=== PATIENT | female | born 1995 | race Caucasian/White ===

== ENCOUNTER 2020-12-21 14:27 | Emergency (ER) | payer BC, SELFPAY ==
--- NOTE | ~2020-12-21 | XR_ITS ---
EXAMINATION: XR foot RT min 3V EXAM DATE: 12/21/2020 14:43 INDICATION: No known recent injury provided at this time. Pain of the right foot, heel. TECHNIQUE: Right foot dorsoplantar, lateral and oblique projections obtained and reviewed. There is no prior study for comparison. FINDINGS: Right metatarsal bones unremarkable. No periosteal reaction or band of sclerosis to sugges t subacute stress fracture. There are no acute fractures or dislocations identified. There is no dunn bcutaneous gas. The soft tissue is unremarkable. There are no radiopaque foreign bodies. IMPRESSION: No acute osseous findings. Reviewed, dictated and finalized at location B. IMPRESSION: No acute osseous findings.
[2020-12-21 14:30] VITALS: BP 125/78; PULSE 87; RESP 18; TEMP 36.9; O2SAT 100
[2020-12-21 16:02] VITALS: BP 130/77; PULSE 94; RESP 18; TEMP 36.8; O2SAT 100
--- NOTE | 2020-12-21 16:27 | ED.LOWEXIN ---
HPI - Extremity Injury (Lower) General Chief Complaint: Extremity Injury, Lower <Ron Leonard PA-C - Last Filed: 12/21/20 16:32> Stated Complaint: R Foot Pain <Ron Leonard PA-C - Last Filed: 12/21/20 16:32> Time Seen by Provider: 12/21/20 15:48 <Ron Leonard PA-C - Last Filed: 12/21/20 16:32> Source: patient <ROBIN Casas Last Filed: 12/21/20 16:32> Mode of arrival: ambulatory <ROBIN Casas Last Filed: 12/21/20 16:32> Limitations: no limitations <ROBIN Casas Last Filed: 12/21/20 16:32> History of Present Illness HPI Narrative: Patient presents with chief complaint of pain to the plantar aspect of her right foot under her right fifth metatarsal. Patient denies known injury. Patient reports the area is tender when walked on her toes. Patient has taken some Excedrin for symptoms. Patient denies any other symptoms. <ROBIN Casas Last Filed: 12/21/20 16:32> Related Data Home Medications: Home Medications Medication Instructions Recorded Confirmed albuterol sulfate INHALATION 12/21/20 mometasone-formoterol [Dulera] INHALATION 12/21/20 <Ron Leonard PA-C - Last Filed: 12/21/20 16:32> Allergies/Adverse Reactions: Allergies Allergy/AdvReac Type Severity Reaction Status Date / Time No Known Allergies Allergy Unverified 12/21/20 16:04 <Ron Leonard PA-C - Last Filed: 12/21/20 16:32> Review of Systems Review of Systems: CONSTITUTIONAL: Denies fever, chills, or sweats. EYES: Denies visual changes, redness, or discharge. ENT: Denies rhinorrhea, congestion, sore throat, or otalgia. CARDIOVASCULAR: Denies chest pain, palpitations, or edema. RESPIRATORY: Denies cough or dyspnea. GASTROINTESTINAL: Denies abdominal pain, nausea, vomiting, or diarrhea. GENITOURINARY: Denies dysuria or hematuria. SKIN: Denies rash or itching. MUSCULOSKELETAL: Reports right foot pain denies back pain, joint pain, or myalgia. NEUROLOGIC: Denies headache, numbness, dizziness, or weakness. PSYCHIATRIC: Denies anxiety or depression. <Ron Leonard PA-C - Last Filed: 12/21/20 16:32> Exam Narrative: GENERAL: Well-appearing, well-nourished, and in no acute distress. HEAD: Normocephalic, atraumatic. EYES: PERRLA and EOMI. CHEST: Clear to auscultation. No respiratory distress. No wheezes rales or rhonchi HEART: Regular rate and rhythm. EXTREMITIES: Tender with palpating the flexor tendon of the fifth metatarsal of the right foot. No outward signs of injury, erythema or swelling. Normal range of motion. No edema. SKIN: Warm, dry, no rash. NEURO: No focal deficits. Alert and oriented x3. PSYCH: Normal mood and affect. <Ron Leonard PA-C - Last Filed: 12/21/20 16:32> Course Vital Signs Vital signs: Vital Signs Temperature 98.5 F 12/21/20 14:30 Pulse Rate 87 12/21/20 14:30 Respiratory Rate 18 12/21/20 14:30 Blood Pressure 125/78 12/21/20 14:30 Pulse Oximetry 100 12/21/20 14:30 Temperature 98.2 F 12/21/20 16:02 Pulse Rate 94 12/21/20 16:02 Respiratory Rate 18 12/21/20 16:02 Blood Pressure 130/77 12/21/20 16:02 Pulse Oximetry 100 12/21/20 16:02 <Ron Leonard PA-C - Last Filed: 12/21/20 16:32> Vital Signs Temperature 98.5 F 12/21/20 14:30 Pulse Rate 87 12/21/20 14:30 Respiratory Rate 18 12/21/20 14:30 Blood Pressure 125/78 12/21/20 14:30 Pulse Oximetry 100 12/21/20 14:30 Temperature 98.2 F 12/21/20 16:02 Pulse Rate 94 12/21/20 16:02 Respiratory Rate 18 12/21/20 16:02 Blood Pressure 130/77 12/21/20 16:02 Pulse Oximetry 100 12/21/20 16:02 <Cheri Portillo MD - Last Filed: 12/21/20 20:57> MDM - Extremity Injury (Lower) MDM Narrative Medical decision making narrative: Patient has symptoms of tendinitis. Discussed NSAIDs, estrogen therapy, follow-up primary care for further investigation and management if symptoms persist. Juan Francisco
== END 2020-12-21 17:06 | disposition home or self-care (01) ==
PROVIDERS: Emergency Provider Emergency Medicine; PCP Internal Medicine
DX: M77.8 Other enthesopathies, not elsewhere classified (principal)
CPT/HCPCS: 73630; 99283

== ENCOUNTER 2021-12-02 11:04 | Emergency (ER) | payer BC, SELFPAY ==
[2021-12-02 11:05] VITALS: BP 136/81; PULSE 95; RESP 18; TEMP 36.6; O2SAT 100
[2021-12-02 11:25] LABS: Basophils Percent Auto 0.2 % (0.2-1.2); Eosinophils Absolute Auto 0.2 K/mm3 (0-0.3); Hematocrit 48.2 % (37.0-47.0); Hemoglobin 15.6 g/dL (12.0-15.0); Immature Granulocyte Absolute 0.02 K/mm3 (0.00-0.031); Immature Granulocyte Percent A 0.2 % (0-0.5); Lymphocytes Absolute Auto 2.83 K/mm3 (0.9-3.2); Lymphocytes Percent Auto 30.4 % (18.3-44.2); Mean Corpuscular HGB Conc 32.4 g/dl (32-36); Mean Corpuscular Hemoglobin 28.2 pg (26-34); Mean Corpuscular Volume 87.2 fl (80-100); Mean Platelet Volume 10.1 fl (7.4-10.4); Monocytes Absolute Auto 0.6 K/mm3 (0.1-0.6); Monocytes Percent Auto 6.3 % (2.6-8.5); Neutrophils Absolute Auto 5.7 K/mm3 (1.3-6.7); Neutrophils Percent Auto 60.9 % (45.5-73.1); Platelet Count Result 351 k/mm3 (150-375); Red Blood Count 5.53 M/mm3 (4.2-5.4); Red Cell Distribution Width 11.9 % (11.5-14.5); White Blood Count 9.3 K/mm3 (4.5-10.0)
[2021-12-02 11:43] LABS: Alanine Aminotransferase 17 U/L (6-35); Albumin Level 5.2 g/dL (3.5-5.1); Alkaline Phosphatase 89 U/L (38-126); Anion Gap 13 mmol/L (8-16); Appearance Urine Clear (Clear); Aspartate Amino Transferase 26 U/L (14-36); Bilirubin Urine 1+ (Negative); Bilirubin,Total 1.5 mg/dL (0.2-1.3); Blood Urea Nitrogen 18 mg/dL (7-17); Blood Urine Negative (Negative); Carbon Dioxide 29 mmol/L (22-30); Chloride 100 mmol/L (98-107); Color Urine Yellow (Yellow); Estimated CRCL calculation 116 ml/min; Estimated Glomerular Filt Rate > 60; Glucose 104 mg/dL (65-110); Glucose Urine UA Negative (Negative); Ketones Urine Negative (Negative); Leukocyte Esterase Ur Negative LEU/UL (Negative); Lipase 166 U/L (23-300); Nitrate Urine Negative (Negative); Potassium 4.2 mmol/L (3.4-5.0); Protein Urine Negative (Negative); Sodium 142 mmol/L (137-145); Specific Grav Ur >= 1.030 (1.001-1.035); Urobilinogen Urine 0.2 mg/dL (<2.0); pH Urine 5.5 (5.0-9.0)
[2021-12-02 11:48] LABS: Mucus Urine Rare /lpf; RBC Urine 0-2 /hpf (0-2); Squamous Epithelial Cell Urine Few /hpf (Few)
[2021-12-02 11:49] LABS: Add Urine Microscopic? YES
--- NOTE | 2021-12-02 11:49 | ED.BACK ---
HPI - Back Pain/Injury General Chief Complaint: Back Pain/Injury Stated Complaint: back pain Time Seen by Provider: 12/02/21 11:38 History of Present Illness HPI Narrative: Patient is a 26 year old female here for evaluation of pain in her right side x 6 days. Patient states the pain is intermittent in nature, worse with rotation of her torso, and is worse when she is seated. She notes the pain feels like a cramp and will occasionally radiate into her low back. She was seen at [facility] emergency department upon symptom onset, she had a CT scan that was reportedly normal. They treated her for suspected pyelonephritis with antibiotics, but patient states that the antibiotics have not improved her symptoms. She has not attempted any pain medicine. Patient does note that she worked out for the first time in a while prior to symptom onset, with lots of abdominal crunches. She denies any nausea, vomiting, fevers, chills, dysuria, urgency, frequency. Related Data Home Medications Medication Instructions Recorded Confirmed albuterol sulfate 90 mcg/actuation inhalation 12/21/20 aerosol inhaler mometasone-formoterol HFA 200 inhalation 12/21/20 mcg-5 mcg/actuation aerosol inhaler (Dulera) Allergies Allergy/AdvReac Type Severity Reaction Status Date / Time amoxicillin Allergy Rash Verified 12/02/21 11:23 Review of Systems Review of Systems: Gen: Denies fevers or chills Eyes: Denies eye pain or visual change ENT: Denies congestion Respiratory: Denies shortness of breath or cough CV: Denies chest pain or palpitations GI: Denies abdominal pain nausea, emesis or diarrhea denies burning, urgency, frequency or hematuria Musculoskeletal: Denies back pain or muscle pain Neuro: Denies numbness, tingling, weakness or focal weakness Skin: Denies rash Except as documented, all other systems reviewed and negative Course Vital Signs Vital signs: Vital Signs Temperature 98 F 12/02/21 11:05 Pulse Rate 95 12/02/21 11:05 Respiratory Rate 18 12/02/21 11:05 Blood Pressure 136/81 12/02/21 11:05 Pulse Oximetry 100 12/02/21 11:05 Oxygen Delivery Room Air 12/02/21 11:05 Temperature 98 F 12/02/21 11:05 Pulse Rate 79 12/02/21 13:36 Respiratory Rate 18 12/02/21 13:36 Blood Pressure 110/74 12/02/21 13:36 Pulse Oximetry 99 12/02/21 13:36 Oxygen Delivery Room Air 12/02/21 11:05 MDM - Back Pain/Injury MDM Narrative Medical decision making narrative: 26-year-old female here for evaluation of pain in her right side over the past several days that is positional in nature, onset after recent exertion. Here she is nontoxic-appearing with normal vital signs and she has no abdominal tenderness to palpation whatsoever, in addition to no CVA tenderness. Work-up unremarkable, no leukocytosis, normal lipase. UA normal. She tells me she had a right upper quadrant ultrasound and a CT scan at outside hospital upon symptom onset that were both normal; do not feel repeat imaging is indicated today. Patient tells me that she does have a history of chronic gallbladder issues which likely explains the slight elevation in her bilirubin to 1.5, and she has follow-up with a surgeon later this month. Favor musculoskeletal sprain given location and quality of pain; improved after Tylenol, ibuprofen and lidocaine patch in the ED. Did offer patient pelvic ultrasound but she declined, feel this is reasonable as her symptoms are not consistent with a ovarian torsion. He has follow-up with an OB doctor at the end of this week and also with her primary care this coming week, encouraged her to keep these appointments. She was given reasons to return to the ED and she voiced understanding. Lab Data Result diagrams: 12/02/21 11:18 12/02/21 11:18 Labs: Lab Results 12/02/21 12/02/21 12/02/21 Range/Units 11:18 11:18 11:18 WBC 9.3 (4.5-10.0) K/mm3 RBC 5.53 H (4.2-5.4) M/mm3 Hg
[2021-12-02] MEDS: LIDOCAINE 5% PATCH 1 PATCH TRANSDERM (12:25)
[2021-12-02] MEDS: ACETAMINOPHEN 325 MG TABLET 650 MG PO (12:27)
[2021-12-02] MEDS: IBUPROFEN 600 MG TABLET PO (12:27)
[2021-12-02 12:29] VITALS: BP 120/70; PULSE 102; RESP 18; O2SAT 100
[2021-12-02 13:36] VITALS: BP 110/74; PULSE 79; RESP 18; O2SAT 99
== END 2021-12-02 13:38 | disposition home or self-care (01) ==
PROVIDERS: Emergency Provider Emergency Medicine; PCP Internal Medicine
DX: S39.012A Strain of muscle, fascia and tendon of lower back, initial encounter (principal); X58.XXXA Exposure to other specified factors, initial encounter
CPT/HCPCS: 36415; 80053; 81001; 81025; 83690; 85025; 87086; 87088; 99283; A9270

== ENCOUNTER 2021-12-08 21:03 | Emergency (ER) | payer BC, SELFPAY ==
--- NOTE | ~2021-12-08 | CT_ITS ---
EXAMINATION: CT abdomen pelvis wo con DATE: 12/09/2021 00:45 INDICATION: Right flank pain. Right upper abdominal pain. TECHNIQUE: Computed tomography (CT) of the abdomen and pelvis was performed without intravenous contr ast. Automated exposure control and iterative reconstruction technique were employed. The dose-length product was 1416.29 mGy-cm. COMPARISON: None. FINDINGS: The visualized portions of the lung bases demonstrate minimal atelectasis. No pleural effus ion. The heart size is normal. No pericardial effusion. The liver and spleen are normal. There are ga llstones in the gallbladder, which is normal in size. The pancreas, adrenal glands, and kidneys are n ormal. There is no urolithiasis. There are no dilated loops of bowel. The appendix is normal. There a re no pathologically enlarged lymph nodes. There is no free intraperitoneal fluid. There is mild thor acic spondylosis. There is mild chronic anterior wedging of multiple lower thoracic vertebral bodies. IMPRESSION: 1. No urolithiasis. Reviewed, dictated and finalized at location A. IMPRESSION: 1. No urolithiasis.
[2021-12-08 21:04] VITALS: BP 144/89; PULSE 73; RESP 16; TEMP 36.1; O2SAT 100
[2021-12-08 22:27] LABS: Basophils Absolute Auto 0.1 K/mm3 (0.0-0.1); Basophils Percent Auto 0.5 % (0.2-1.2); Eosinophils Absolute Auto 0.2 K/mm3 (0-0.3); Eosinophils Percent Auto 2.1 % (0-4.4); Hematocrit 43.7 % (37.0-47.0); Hemoglobin 14.1 g/dL (12.0-15.0); Immature Granulocyte Absolute 0.03 K/mm3 (0.00-0.031); Immature Granulocyte Percent A 0.3 % (0-0.5); Lymphocytes Absolute Auto 3.74 K/mm3 (0.9-3.2); Lymphocytes Percent Auto 37.7 % (18.3-44.2); Mean Corpuscular HGB Conc 32.3 g/dl (32-36); Mean Corpuscular Hemoglobin 28.5 pg (26-34); Mean Corpuscular Volume 88.5 fl (80-100); Mean Platelet Volume 10.4 fl (7.4-10.4); Monocytes Absolute Auto 0.5 K/mm3 (0.1-0.6); Monocytes Percent Auto 5.3 % (2.6-8.5); Neutrophils Absolute Auto 5.4 K/mm3 (1.3-6.7); Neutrophils Percent Auto 54.1 % (45.5-73.1); Platelet Count Result 315 k/mm3 (150-375); Red Blood Count 4.94 M/mm3 (4.2-5.4); White Blood Count 9.9 K/mm3 (4.5-10.0)
[2021-12-09 00:03] VITALS: BP 125/99; PULSE 76; RESP 16; TEMP 36.8; O2SAT 100
[2021-12-09 00:12] LABS: Appearance Urine Clear (Clear); Bilirubin Urine Negative (Negative); Blood Urine 3+ (Negative); Color Urine Yellow (Yellow); Glucose Urine UA Negative (Negative); Ketones Urine Trace mg/dL (Negative); Leukocyte Esterase Ur 1+ LEU/UL (Negative); Nitrate Urine Negative (Negative); Protein Urine Negative (Negative); Specific Grav Ur >= 1.030 (1.001-1.035); Urobilinogen Urine 0.2 mg/dL (<2.0)
[2021-12-09 00:15] LABS: Alanine Aminotransferase 16 U/L (6-35); Albumin Level 4.4 g/dL (3.5-5.1); Alkaline Phosphatase 79 U/L (38-126); Anion Gap 11 mmol/L (8-16); Aspartate Amino Transferase 22 U/L (14-36); Bilirubin,Total 1.1 mg/dL (0.2-1.3); Blood Urea Nitrogen 16 mg/dL (7-17); Calcium 9.6 mg/dL (8.4-10.2); Carbon Dioxide 26 mmol/L (22-30); Chloride 101 mmol/L (98-107); Estimated CRCL calculation 129 ml/min; Estimated Glomerular Filt Rate > 60; Glucose 101 mg/dL (65-110); Lipase 170 U/L (23-300); Potassium 3.6 mmol/L (3.4-5.0); Sodium 138 mmol/L (137-145)
[2021-12-09 00:16] LABS: Bacteria Urine Trace /hpf; Mucus Urine Heavy /lpf; RBC Urine 21-50 /hpf (0-2); Squamous Epithelial Cell Urine Many /hpf (Few); Transitional Epi Cells Urine Rare /hpf (None Seen); WBC Urine 31-50 /hpf
[2021-12-09 00:23] LABS: Add Urine Microscopic? YES
--- NOTE | 2021-12-09 00:25 | ED.ABDPAIN ---
HPI - Abdominal Pain General Chief Complaint: Abdominal Pain Stated Complaint: right sided abd pain Time Seen by Provider: 12/08/21 23:34 Source: patient Mode of arrival: ambulatory Limitations: no limitations History of Present Illness HPI narrative: This is a 26 year old female with history of gallbladder disease who presents for evaluation of right side abdominal pain. Patent states she developed abdominal pain 3 weeks ago. Her pain has been located in right upper abdomen, epigastric, right flank and upper back intermittently. She has been to ER three times for this pain already , and she was recently in [place] ER 1 week ago. She states she has returned because she is having constant right flank pain for 5 day. She has been taking naproxen and norco for her pain without relief. She thinks her pain is worse with sitting up. She denies associated fever, chills, nausea, vomiting or urinary complaints. She states she was told it was her gallbladder but she states this does not feel like her gallbladder pain . She has been diagnosed with back strain as well. She rates pain as 3/10 at rest and 6/10 with movement. Related Data Home Medications Medication Instructions Recorded Confirmed albuterol sulfate 90 mcg/actuation inhalation 12/21/20 aerosol inhaler mometasone-formoterol HFA 200 inhalation 12/21/20 mcg-5 mcg/actuation aerosol inhaler (Dulera) Allergies Allergy/AdvReac Type Severity Reaction Status Date / Time amoxicillin Allergy Rash Verified 12/02/21 11:23 Review of Systems Review of Systems: All systems reviewed & are unremarkable except as noted in HPI and below Constitutional: Constitutional: Denies chills, Denies fatigue and Denies fever(s) Cardiovascular: Cardiovascular: Denies chest pain Respiratory: Respiratory: Denies chest congestion Gastrointestinal: Gastrointestinal: Reports abdominal pain, Denies nausea and Denies vomiting Genitourinary: Genitourinary: Denies hematuria, Denies nocturia, Denies dysuria and Reports flank pain Musculoskeletal: Musculoskeletal: Reports back pain PMF Past Medical History Medical History (Updated 12/09/21 @ 03:34 by Cheri Portillo MD) No active medical problems Surgical History Surgical History (Updated 12/09/21 @ 00:30 by Cheri Portillo MD) No pertinent past surgical history Social History Social History (Updated 12/09/21 @ 00:31 by Cheri Portillo MD) Smoking status: Never smoker Exam Const: General: no acute distress and alert Nutritional Appearance: well nourished Orientation/consciousness: patient oriented x3 HENMT: Head: normal to inspection Eyes: EOM: EOMs intact bilaterally Resp: Effort & Inspection: normal respiratory effort Auscultation: clear to auscultation bilaterally Cardio: Rate: regular rate Rhythm: regular rhythm Heart sounds: no murmurs GI: GI Palp: Yes Soft to palpation, Yes Tenderness to palpation present (GI) (RUQ), No Guarding due to palpation present (GI) and No Rigid due to palpation Auscultation: normal bowel sounds : General: Yes no CVA tenderness Back/Spine/Pelvis: Back: no CVA tenderness Skin: General skin exam: normal color Rashes: no rashes Wounds: no wounds Neuro: General: patient oriented x3, moves all extremities and CN's II-XI intact bilaterally Extrem: General: normal to inspection Psych: Mental Status: mental status grossly normal Affect: normal affect Attitude: cooperative Course Reevaluation(s) Reevaluation #1: Patient presented with pain that has been present for weeks. CMP, CBC are unremarkable. Patient is currently on her cycle. Urine appears to be contaminant. PAtient is not symptomatic so will not treat as antibiotic. CT does not show any thing acute . I have discussed this with patient and discharge. Date: 12/09/21 Time: 03:30 Vital Signs Vital signs: Vital Signs Temperature 97 F L 12/08/21 21:04 Pulse Rate
[2021-12-09 00:36] LABS: Pregnancy On Board Control Positive; Urine Pregnancy Test Negative
[2021-12-09] MEDS: LACTATED RINGERS 1,000 ML 999 ML IV CONT (00:44)
[2021-12-09 01:00] VITALS: BP 125/88; PULSE 80; RESP 16; TEMP 36.3; O2SAT 100
[2021-12-09 02:04] VITALS: BP 123/74; PULSE 78; RESP 16; TEMP 36.6; O2SAT 100
[2021-12-09 02:54] VITALS: BP 103/52; PULSE 69; RESP 18; TEMP 36.3; O2SAT 100
--- NOTE | 2021-12-09 03:04 | PC.NURSE ---
Assumed care of pt at this time.
[2021-12-09 04:09] VITALS: BP 122/81; PULSE 89; RESP 20; TEMP 36.7; O2SAT 100
== END 2021-12-09 04:10 | disposition home or self-care (01) ==
PROVIDERS: Nurse Practitioner Family; Emergency Provider General Practice; PCP Internal Medicine
DX: R10.11 Right upper quadrant pain (principal); K80.20 Calculus of gallbladder without cholecystitis without obstruction; M47.814 Spondylosis without myelopathy or radiculopathy, thoracic region
CPT/HCPCS: 36415; 74176; 80053; 81001; 81025; 83690; 85025; 87077; 87086; 87088; 96360; 99284; J7120

== ENCOUNTER 2023-11-06 23:32 | Emergency (ER) | payer OTHER, SELFPAY ==
[2023-11-06 23:37] VITALS: BP 120/72; PULSE 110; RESP 16; TEMP 36.4; O2SAT 100
--- NOTE | 2023-11-06 23:48 | ED.BACK ---
HPI - Back Pain/Injury General Chief Complaint: Back Pain/Injury Stated Complaint: lower back pain Time Seen by Provider: 11/06/23 23:43 History of Present Illness HPI Narrative: 28-year-old female presents to emergency department for lower back pain for 1 week. Patient states 1 week ago she woke up with low back pain and it has progressively gotten worse. States she has been picking up her dog a lot which is been making her back pain worse. She states it is throughout her lower back and is worse with movement. Denies fever, nausea or vomiting, abdominal pain, dysuria or hematuria, saddle anesthesia, radicular symptoms, urinary incontinence or retention, bowel incontinence, IV drug use, use of immunosuppressants, surgeries or procedures to her back, injury or trauma. She has tried Tylenol, ibuprofen, icy Hot without relief. Related Data Home Medications Medication Instructions Recorded Confirmed albuterol sulfate 90 mcg/actuation inhalation 12/21/20 aerosol inhaler mometasone-formoterol HFA 200 inhalation 12/21/20 mcg-5 mcg/actuation aerosol inhaler (Dulera) Allergies Allergy/AdvReac Type Severity Reaction Status Date / Time amoxicillin Allergy Rash Verified 11/06/23 23:41 Review of Systems Review of Systems: All systems reviewed & are unremarkable except as noted in HPI and below PMFSH Past Medical History Medical History No active medical problems Surgical History Surgical History No pertinent past surgical history Social History Social History Smoking status: Never smoker Exam Narrative: GENERAL: Well-appearing, well-nourished, and in no acute distress. HEAD: Normocephalic, atraumatic. EYES: PERRLA and EOMI. ENT: Nares clear, no rhinorrhea or epistaxis. Mucous membranes moist. NECK: Supple. BACK: Diffuse pain to her lumbar region including paraspinous muscles and midline spinous tenderness. No step-offs or deformities. No overlying skin changes. Negative straight leg raise bilaterally CHEST: Clear to auscultation. No respiratory distress. HEART: Regular rate and rhythm. No murmur heard. Normal peripheral pulses. ABDOMEN: Soft, nontender, nondistended, normal active bowel sounds. EXTREMITIES: Normal range of motion. No edema. BLE strength 5/5. Sensation intact. No saddle anesthesia. SKIN: Warm, dry, no rash. NEURO: No focal deficits. Alert and oriented x3 Course Vital Signs Vital signs: Vital Signs Temperature 97.6 F 11/06/23 23:37 Pulse Rate 110 H 11/06/23 23:37 Respiratory Rate 16 11/06/23 23:37 Blood Pressure 120/72 11/06/23 23:37 Pulse Oximetry 100 11/06/23 23:37 Oxygen Delivery Room Air 11/06/23 23:37 Temperature 97.6 F 11/06/23 23:37 Pulse Rate 110 H 11/06/23 23:37 Respiratory Rate 16 11/06/23 23:37 Blood Pressure 120/72 11/06/23 23:37 Pulse Oximetry 100 11/06/23 23:37 Oxygen Delivery Room Air 11/06/23 23:37 MDM - Back Pain/Injury MDM Narrative Medical decision making narrative: 28-year-old female presents to the emergency department for atraumatic low back pain for 1 week. Vital significant for tachycardia 110, otherwise unremarkable. She is afebrile and nontoxic appearing. Exam significant for diffuse tenderness to her lower back. She is neurovascularly intact. No signs of cauda equina. No red flag back pain signs. Will obtain urine and UA and provide symptomatic control and re-evaluate. UA with 51-100 wbc's and greater than 100 rbc's. Patient is currently on her menstrual cycle. She denies signs or symptoms of UTI. She has no flank pain. No history of kidney stones. Very low suspicion for ureterolithiasis as the cause of her pain. negative. Labs discussed. She was given IM Toradol, Tylenol, lidocaine patch and Flex
[2023-11-07] MEDS: ACETAMINOPHEN 500 MG TABLET 1000 MG PO (00:05)
[2023-11-07] MEDS: CYCLOBENZAPRINE HCL 10 MG TABLET PO (00:05)
[2023-11-07] MEDS: LIDOCAINE 5% PATCH 1 PATCH TRANSDERM (00:05)
[2023-11-07] MEDS: KETOROLAC 30 MG/ML VIAL (*BKC) IM (00:05)
[2023-11-07 00:20] LABS: Add Urine Microscopic? YES; Appearance Urine Cloudy (Clear); Bacteria Urine 1+ /hpf; Bilirubin Urine Negative (Negative); Blood Urine 3+ (Negative); Color Urine Yellow (Yellow); Glucose Urine UA Negative (Negative); Ketones Urine Negative (Negative); Leukocyte Esterase Ur 2+ LEU/UL (Negative); Nitrate Urine Negative (Negative); Non Pathogenic Casts 0-2; Protein Urine Trace mg/dL (Negative); RBC Urine >100 /hpf (0-2); Specific Grav Ur 1.018 (1.001-1.035); Squamous Epithelial Cell Urine Few /hpf (Few); Urobilinogen Urine 0.2 mg/dL (<2.0); WBC Urine 51-100 /hpf (0-3)
[2023-11-07 01:04] VITALS: BP 114/66; PULSE 78; RESP 15; O2SAT 100
== END 2023-11-07 01:05 | disposition home or self-care (01) ==
PROVIDERS: Emergency Provider Physician Assistant; PCP Physician Assistant
DX: S39.012A Strain of muscle, fascia and tendon of lower back, initial encounter (principal); X50.0XXA Overexertion from strenuous movement or load, initial encounter
CPT/HCPCS: 81001; 81025; 87086; 87088; 96372; 99283; A9270; J1885

== ENCOUNTER 2023-12-10 19:02 | Emergency (ER) | payer OTHER, SELFPAY ==
--- NOTE | ~2023-12-10 | XR_ITS ---
EXAMINATION: XR chest 2V DATE: 12/10/2023 20:04 INDICATION: Cough TECHNIQUE: PA and lateral views of the chest were obtained. COMPARISON: None FINDINGS: The lungs are clear with no focal airspace opacities, pulmonary edema, pleural effusion or pneumothor ax. The cardiomediastinal silhouette is normal. Mild anterior wedging of a few vertebral bodies at th e thoracolumbar junction. IMPRESSION: 1. No acute cardiopulmonary disease. Reviewed, dictated and finalized at location A.
[2023-12-10 19:25] VITALS: BP 142/84; PULSE 108; RESP 19; TEMP 36.7; O2SAT 96
[2023-12-10] MEDS: dexAMETHasone SOD PHOS INJ 10 MG/ML 1 ML VIAL IM (19:58)
--- NOTE | 2023-12-10 19:58 | ED.URI ---
HPI - URI/Sore Throat General Chief Complaint: Upper Respiratory Infection Stated Complaint: Cough, Bronchitis (W asthma dx) Time Seen by Provider: 12/10/23 19:37 History of Present Illness HPI Narrative: 28-year-old female with history of asthma presents to emergency department for cough and sinus congestion for 10 days. Patient states 10 days ago she came back for vaginal right tripped and began having sinus congestion which is not turned into a nonproductive cough. She states she has been having difficulty using her inhaler because every time she takes a deep breath she coughs. She would urgent care yesterday and was diagnosed with viral bronchitis and prescribed 40 mg of prednisone for 5 days and benzonatate which he has been taking without improvement. She denies fever, otalgia. She is reporting sore throat she suspects is secondary to her cough. She has not been tested for COVID or flu and has not had a chest x-ray. Related Data Home Medications Medication Instructions Recorded Confirmed albuterol sulfate 90 mcg/actuation inhalation 12/21/20 aerosol inhaler mometasone-formoterol HFA 200 inhalation 12/21/20 mcg-5 mcg/actuation aerosol inhaler (Dulera) Allergies Allergy/AdvReac Type Severity Reaction Status Date / Time amoxicillin Allergy Rash Verified 11/06/23 23:41 Review of Systems Review of Systems: All systems reviewed & are unremarkable except as noted in HPI and below PMFSH Past Medical History Medical History No active medical problems Surgical History Surgical History No pertinent past surgical history Social History Social History Smoking status: Never smoker Exam Narrative: GENERAL: Well-appearing, well-nourished, and in no acute distress. HEAD: Normocephalic, atraumatic. EYES: PERRLA and EOMI. ENT: Nares clear, no rhinorrhea or epistaxis. Mucous membranes moist. Tenderness to bilateral maxillary sinuses. Posterior pharynx with mild erythema no tonsillar hypertrophy or exudates. Uvula midline. NECK: Supple. CHEST: Clear to auscultation. No respiratory distress. No wheezing, rales or rhonchi HEART: Regular rate and rhythm. No murmur heard. Normal peripheral pulses. EXTREMITIES: Normal range of motion. No edema. SKIN: Warm, dry, no rash. NEURO: No focal deficits. Alert and oriented x3 Course Vital Signs Vital signs: Vital Signs Temperature 98.0 F 12/10/23 19:25 Pulse Rate 108 H 12/10/23 19:25 Respiratory Rate 19 12/10/23 19:25 Blood Pressure 142/84 H 12/10/23 19:25 Pulse Oximetry 96 12/10/23 19:25 Temperature 98.0 F 12/10/23 19:25 Pulse Rate 85 12/10/23 20:46 Respiratory Rate 20 12/10/23 20:46 Blood Pressure 142/84 H 12/10/23 19:25 Pulse Oximetry 96 12/10/23 19:25 MDM - URI/Sore Throat MDM Narrative Medical decision making narrative: 28-year-old female presents to emergency department for sinus congestion and nonproductive cough for 10 days. Triage vital significant for blood pressure more 142/84 tachycardia 108. She is afebrile nontoxic appearing. There is tenderness bilateral maxillary sinuses. Lung sounds are clear. she does not have any significant wheezing, however she is requesting a DuoNeb. Will also provide IM Decadron and obtain COVID, flu, strep test and CXR. chest x-ray shows no acute cardiopulmonary abnormality. Strep, COVID RSV and flu were negative. Patient received a DuoNeb and IM Decadron with improvement in symptoms. workup discussed with the patient. Given duration of symptoms has been 10 days, will treat for bacterial cause of sinusitis with doxycycline. She does have a penicillin allergy. Advised her to continue the steroids prescribed by urgent care, use her albuterol inhaler and continue benzonatate as needed. Advise
[2023-12-10 20:29] VITALS: PULSE 88; RESP 18
[2023-12-10] MEDS: IPRATROPIUM 0.5 MG/ALBUTEROL SULFATE 2.5 MG AMPUL.NEB 3 ML INHALATION (20:29)
[2023-12-10 20:46] VITALS: PULSE 85; RESP 20
[2023-12-10 20:56] LABS: Strep Group A RT-PCR NOT DETECTED (Negative)
[2023-12-10 21:09] LABS: Influenza A QL RT-PCR Negative (Negative); Influenza B QL RT-PCR Negative (Negative); RSV RNA, RT-PCR Negative (Negative); SARS-CoV-2 RNA PCR Negative (Negative)
[2023-12-10] MEDS: DOXYCYCLINE HYCLATE 100 MG TABLET PO (21:33)
[2023-12-10 21:34] VITALS: BP 138/76; PULSE 88; RESP 15; O2SAT 97
== END 2023-12-10 21:35 | disposition home or self-care (01) ==
PROVIDERS: Emergency Provider Physician Assistant; PCP Physician Assistant
DX: J40 Bronchitis, not specified as acute or chronic (principal); J01.00 Acute maxillary sinusitis, unspecified; Z20.822 Contact with and (suspected) exposure to COVID-19
CPT/HCPCS: 71046; 87637; 87651; 94640; 96372; 99283; A9270; J1100

== ENCOUNTER 2023-12-23 01:56 | Emergency (ER) | payer OTHER, SELFPAY ==
--- NOTE | ~2023-12-23 | XR_ITS ---
AP and oblique views of the right ribs, and PA chest radiograph Clinical History: Pain Findings: No rib fracture is seen. Osseous alignment is anatomic. Lungs are clear, without focal cons olidation or pleural effusion. Cardiomediastinal contour is within normal limits. Soft tissues are un remarkable. Impression: No rib fracture is seen. Clear lungs. Reviewed, dictated and finalized at [facility]. Impression: No rib fracture is seen. Clear lungs.
[2023-12-23 01:59] VITALS: BP 145/77; PULSE 99; RESP 14; TEMP 36.8; O2SAT 100
[2023-12-23] MEDS: ACETAMINOPHEN 500 MG TABLET 1000 MG PO (02:54)
[2023-12-23] MEDS: methocarbamoL 750 MG TABLET 1500 MG PO (02:55)
[2023-12-23] MEDS: KETOROLAC 30 MG/ML VIAL (*BKC) IM (02:55)
--- NOTE | 2023-12-23 03:01 | ED.GENADULT ---
HPI - General Adult General Chief complaint: Unspecified Stated complaint: I cough and something popped in my side , back R Time Seen by Provider: 12/23/23 02:21 History of Present Illness HPI narrative: This is a 28-year-old female presenting with right back pain. Patient has had bronchitis in a dry cough for the last month. Today she was coughing and felt a pop on her right side. She then developed pain on palpation of her right ribs. She does not have any shortness of breath, fevers chills or chest pain. She is not taking anything pain. Related Data Home Medications Medication Instructions Recorded Confirmed albuterol sulfate 90 mcg/actuation inhalation 12/21/20 aerosol inhaler mometasone-formoterol HFA 200 inhalation 12/21/20 mcg-5 mcg/actuation aerosol inhaler (Dulera) Allergies Allergy/AdvReac Type Severity Reaction Status Date / Time amoxicillin Allergy Rash Verified 11/06/23 23:41 [facility] Past Medical History Medical History No active medical problems Surgical History Surgical History No pertinent past surgical history Social History Social History Smoking status: Never smoker Exam Narrative: APPEARANCE: No apparent distress. Head: atraumatic. EYES: EOMI, NOSE: Atraumatic NECK: Trachea midline RESPIRATORY: No increased rate of breathing, clear to auscultation CARDIOVASCULAR: RRR, ABDOMINAL: Non-distended MUSCULOSKELETAl: Tenderness to palpation over the right lateral ribcage NEURO: Alert. Moving 4/4 extremities SKIN:: Warm, dry. Normal color PSYCHIATRIC: Normal affect Course Vital Signs Vital signs: Vital Signs Temperature 98.3 F 12/23/23 01:59 Pulse Rate 99 12/23/23 01:59 Respiratory Rate 14 12/23/23 01:59 Blood Pressure 145/77 H 12/23/23 01:59 Pulse Oximetry 100 12/23/23 01:59 Oxygen Delivery Room Air 12/23/23 01:59 Temperature 98.3 F 12/23/23 01:59 Pulse Rate 99 12/23/23 01:59 Respiratory Rate 14 12/23/23 01:59 Blood Pressure 145/77 H 12/23/23 01:59 Pulse Oximetry 100 12/23/23 01:59 Oxygen Delivery Room Air 12/23/23 01:59 Medical Decision Making MDM Narrative Medical decision making narrative: -Course: 28-year-old female presenting with persistent cough a popping sensation earlier today. Tenderness over the right ribcage. X-ray negative for displaced rib fractures, pneumothorax or hemothorax. Patient will be treated with pain medication/incentive spirometry. She will be discharged home with return precautions. -DDX includes but is not limited to: Cracked rib, fractured rib, spontaneous pneumothorax, muscle strain -Independent interpretation of studies: Chest and rib x-ray negative for displaced rib fracture, pneumothorax, hemothorax. -Interventions: Motrin Tylenol Robaxin -Shared decision making / Disposition: Discharge -RX Motrin Tylenol Robaxin Vital Signs Vital Signs: Vital Signs Temperature 98.3 F 12/23/23 01:59 Pulse Rate 99 12/23/23 01:59 Respiratory Rate 14 12/23/23 01:59 Blood Pressure 145/77 H 12/23/23 01:59 Pulse Oximetry 100 12/23/23 01:59 Oxygen Delivery Room Air 12/23/23 01:59 Temperature 98.3 F 12/23/23 01:59 Pulse Rate 99 12/23/23 01:59 Respiratory Rate 14 12/23/23 01:59 Blood Pressure 145/77 H 12/23/23 01:59 Pulse Oximetry 100 12/23/23 01:59 Oxygen Delivery Room Air 12/23/23 01:59 Discharge Plan Discharge Clinical Impression: Rib pain on right side Patient Disposition: Home, Self-Care Condition: Stable Instructions: Antibiotic Form, Rib Contusion (ED) Additional Instructions: Please use Motrin Tylenol and Robaxin for pain control. Please follow-up with your primary care physician. Use incentive spirometry 10 times an hour while awake. Return if you develop fe
== END 2023-12-23 03:34 | disposition home or self-care (01) ==
PROVIDERS: Emergency Provider Emergency Medicine; PCP Physician Assistant
DX: R07.89 Other chest pain (principal); X50.9XXA Other and unspecified overexertion or strenuous movements or postures, initial encounter
CPT/HCPCS: 71101; 96372; 99283; A9270; J1885

== ENCOUNTER 2024-05-17 12:51 | Emergency (ER) | payer OTHER, SELFPAY ==
[2024-05-17 13:03] VITALS: BP 115/62; PULSE 84; RESP 20; TEMP 36.6; O2SAT 100
--- OUTSIDE RECORDS SUMMARY | 2024-05-17 13:24 | XMS_ITS | Data Portability ---
Author Organization [facility] Leonela Pozo Address [address] [facility] [place] [address] Care Team Providers Care Residential Counselor Name Role Phone SUSAN DEGROOT Primary Care Provider Assessment Encounter Date Assessment Date Assessment LastModified by Organization Details LastModified Time 11/18/2023 11/18/2023 Sections of the HPI, exam and assessment completed by FLORENCIO Huntley student and have been reviewed by me. I agree with the exam findings, assessment and plan except where specifically documented or amended. -Susan Degroot, [facility], ROBNI [email or web address] Not available 11/18/2023 10:51:29 Plan of Treatment Reminders Order Date Submit Date Provider Last Modified By Organization Details Last Modified Time Details Appointments None recorded. Lab rapid flu (A+B) 2022 023 SARAH In-Office Order, Internal Use Only DO Not Attach Compendium DO Not Attach Compendium, Do Not Delete/merge, [id number] 12:35:16 rsv (respirator y syncytial virus), rapid, nasopharyng eal 2022 023 SARAH In-Office Order, Internal Use Only DO Not Attach Compendium DO Not Attach Compendium, Do Not Delete/merge, [id number] 3 12:35:28 rapid SARS CoV 2 Ag, QL IA, respiratory specimen 2022 023 SARAH In-Office Order, Internal Use Only DO Not Attach Compendium DO Not Attach Compendium, Do Not Delete/merge, [id number] 12:34:51 vitamin B12 + folate, serum or blood 2023 024 [email or web address] [facility], [address], [place], [address], 4 08:02:22 vitamin D, 25-hydroxy, total, serum 2023 024 [email or web address] [facility], [address], [address], [place], [address], 4 08:02:22 Referral None recorded. Procedures None recorded. Surgeries None recorded. Imaging US, abdomen, complete - LEFT UPPER QUADRANT 2022 023 [facility] ([facility]), [address], [place], [address], 3 10:51:01 Medication Orders guaifenesin ER 600 mg tablet, extended release 12 hr 2022 023 Replaced by [facility][id number], [address], [place], [place], [id number], 3 11:05:01 famotidine 20 mg tablet 2022 023 [facility] #31582, [address], [place], [place], [id number], 3 11:13:49 cyanocobala min (vit B-12) 1,000 mcg tablet 2022 023 [facility] #94628, [address], [place], [place], [id number], 3 11:08:51 montelukast 10 mg tablet 2022 023 [facility] #36239, [address], [place], [place], [id number], 3 11:06:47 albuterol sulfate HFA 90 mcg/actuati on aerosol inhaler 2022 023 [facility] #26276, [address], [place], [place], [id number], 3 11:08:23 Dulera 200 mcg-5 mcg/actuati on HFA aerosol inhaler 2022 023 [facility] #20337, [address], [place], [place], [id number], 3 11:08:23 cholecalcif radhika (vitamin D3) 1,250 mcg (50,000 unit) capsule 2022 023 [facility] #07364, [address], [place], [place], [id number], 3 11:08:50 cyanocobala min (vit B-12) 1,000 mcg tablet 2023 024 [facility] #11494, [address], [place], [place], [id number], 4 10:36:35 Dulera 200 mcg-5 mcg/actuati on HFA aerosol inhaler 2023 024 [email or web address] #76144, [address], [place], [place], [id number], 4 17:11:45 albuterol sulfate HFA 90 mcg/actuati on aerosol inhaler 2023 024 [facility] #41982, [address], [place], [place], [id number], 4 10:36:36 cholecalcif radhika (vitamin D3) 1,250 mcg (50,000 unit) capsule 2023 [facility] #43015, [address], [place], [place], [id number], 4 10:36:38 famotidine 20 mg tablet 2023 [facility] #89291, [address], [place], [place], [id number], 4 10:36:40 fluticasone propionate 50 mcg/actuati on nasal spray,suspe nsion 2023 [facility] #20283, [address], [place], [place], [id number], 4 17:10:21 montelukast 10 mg tablet 2023 024 [facility] #26938, [address], [place], [place], [id number], 4 17:13:23 azithromyci n 250 mg tablet 2023 024 [facility] #11404, [address], [place], [place], [id number], 4 17:12:13 Patient TargetsNo targets recorded. Patient Instructions Encounter Date Encounter Id Patient Instructions Last Modified By Organization Details Last Modified Time 11/18/2023 [id number] A healthy lifestyle: care instructions [email or web address] Not available 11/18/2023 17:13:18 Reason for Referral None Reported. Results Created Date Observation Date Name Description Value Unit Range Abnormal Flag Note LastModifiedBy Organization Detail LastModifiedTime 06/07/19 23 06/07/2022 COMP. METAB OLIC PANEL (14) glucose 95 mg/dL 65-99 ANION GP 16.0 mmol/ L N OSMOL 275.0 mOsM/ L N REFER ENCE RANGE : 275.0 -301. 0 Not Available [facility] [address] [place], [address], 06/07/2022 20:10:15 06/07/19 23 06/07/2022 COMP. METAB OLIC PANEL (14) BUN 10 mg/dL 8-26 Not Available [facility] [address] [place], [address], 06/07/2022 20:10:15 06/07/19 23 06/07/2022 COMP. METAB OLIC PANEL (14) creatinine 0.68 mg/dL 0.50-1 .40 Not Available [facility] [address] [place], [address], 06/07/2022 20:10:15 06/07/19 23 06/07/2022 COMP. METAB OLIC PANEL (14) eGFR 124 mL/mi n/1.7 3 >=60 Not Available [facility] [address] [place], [address], 06/07/2022 20:10:15 06/07/19 23 06/07/2022 COMP. METAB OLIC PANEL (14) BUN/creatini ne ratio 15.1 Not Available [facility] Department [address] [place], [address], 06/07/2022 20:10:15 06/07/19 23 06/07/2022 COMP. METAB OLIC PANEL (14) sodium 138.4 mmol/ L 136.0- 144.0 Not Available [facility] [address] [place], [address], 06/07/2022 20:10:15 06/07/19 23 06/07/2022 COMP. METAB OLIC PANEL (14) potassium 4.2 mmol/ L 3.5-5. 3 Not Available [facility] [address] [place], [address], 06/07/2022 20:10:15 06/07/19 23 06/07/2022 COMP. METAB OLIC PANEL (14) chloride 101 mmol/ l 101-11 1 Not Available [facility] [address] [place], [address], 06/07/2022 20:10:15 06/07/19 23 06/07/2022 COMP. METAB OLIC PANEL (14) carbon dioxide, total 25.2 mmol/ L 21.0-3 2.0 Not Available [facility] [address] [place], [address], 06/07/2022 20:10:15 06/07/19 23 06/07/2022 COMP. METAB OLIC PANEL (14) calcium 9.7 mg/dL 8.2-10 .0 Not Available [facility] [address] [place], [address], 06/07/2022 20:10:15 06/07/19 23 06/07/2022 COMP. METAB OLIC PANEL (14) protein, total 7.7 g/dL 6.7-8. 2 Not Available [facility] [address] [place], [address], 06/07/2022 20:10:15 06/07/19 23 06/07/2022 COMP. METAB OLIC PANEL (14) albumin 4.8 g/dL 3.5-5. 5 Not Available [facility] [address] [place], [address], 06/07/2022 20:10:15 06/07/19 23 06/07/2022 COMP. METAB OLIC PANEL (14) globulin, total 2.9 g/dL 1.5-4. 5 Not Available [facility] Department [address] [place], [address], 06/07/2022 20:10:15 06/07/19 23 06/07/2022 COMP. METAB OLIC PANEL (14) A/G ratio 1.7 Not Available [facility] Department [address] [place], [address], 06/07/2022 20:10:15 06/07/19 23 06/07/2022 COMP. METAB OLIC PANEL (14) bilirubin, total 1.1 mg/dL 0.0-1. 2 Not Available [facility] [address] [place], [address], 06/07/2022 20:10:15 06/07/19 23 06/07/2022 COMP. METAB OLIC PANEL (14) alkaline phosphatase 96.7 IU/L 42.0-1 21.0 Not Available [facility] [address] [place], [address], 06/07/2022 20:10:15 06/07/19 23 06/07/2022 COMP. METAB OLIC PANEL (14) AST (SGOT) 24.8 U/L 10.0-4 2.0 Not Available [facility] [address] [place], [address], 06/07/2022 20:10:15 06/07/19 23 06/07/2022 COMP. METAB OLIC PANEL (14) ALT (SGPT) 24.5 U/L 10.0-6 0.0 Not Available [facility] Department [address] [place], [address], 06/07/2022 20:10:15 06/07/19 23 06/07/2022 CBC WITH DIFFE RENTI AL/PL ATELE T WBC 8.1 K/uL 3.4-10 .8 Not Available [facility] Department [address] [place], [address], 06/07/2022 20:10:16 06/07/19 23 06/07/2022 CBC WITH DIFFE RENTI AL/PL ATELE T RBC 5.0 M/uL 4.2-5. 4 Not Available [facility] [address] [place], [address], 06/07/2022 20:10:16 06/07/19 23 06/07/2022 CBC WITH DIFFE RENTI AL/PL ATELE T hemoglobin 14.2 g/dL 11.5-1 5.5 Not Available [facility] [address] [place], [address], 06/07/2022 20:10:16 06/07/19 23 06/07/2022 CBC WITH DIFFE RENTI AL/PL ATELE T hematocrit 43.6 % 36.0-4 8.0 Not Available [facility] [address] [place], [address], 06/07/2022 20:10:16 06/07/19 23 06/07/2022 CBC WITH DIFFE RENTI AL/PL ATELE T MCV 88 fL 80-95 Not Available [facility] [address] [place], [address], 06/07/2022 20:10:16 06/07/19 23 06/07/2022 CBC WITH DIFFE RENTI AL/PL ATELE T MCH 29 pg 27-32 Not Available [facility] [address] [place], [address], 06/07/2022 20:10:16 06/07/19 23 06/07/2022 CBC WITH DIFFE RENTI AL/PL ATELE T MCHC 33 g/dL 32-36 Not Available [facility] [address] [place], [address], 06/07/2022 20:10:16 06/07/19 23 06/07/2022 CBC WITH DIFFE RENTI AL/PL ATELE T RDW 11.9 % 11.5-1 4.5 Not Available [facility] [address] [place], [address], 06/07/2022 20:10:16 06/07/19 23 06/07/2022 CBC WITH DIFFE RENTI AL/PL ATELE T platelets 346 K/uL 155-37 9 MPV 10.6 FL 8.9-1 2.7 N Not Available [facility] [address] [place], [address], 06/07/2022 20:10:16 06/07/19 23 06/07/2022 CBC WITH DIFFE RENTI AL/PL ATELE T neutrophils 54.8 % 40.0-7 4.0 Not Available [facility] [address] [place], [address], 06/07/2022 20:10:16 06/07/19 23 06/07/2022 CBC WITH DIFFE RENTI AL/PL ATELE T lymphs 34.8 % 14.0-4 6.0 Not Available [facility] [address] [place], [address], 06/07/2022 20:10:16 06/07/19 23 06/07/2022 CBC WITH DIFFE RENTI AL/PL ATELE T monocytes 6.6 % 4.0-12 .0 Not Available [facility] [address] [place], [address], 06/07/2022 20:10:16 06/07/19 23 06/07/2022 CBC WITH DIFFE RENTI AL/PL ATELE T eos 2 % 0-5 Not Available [facility] Department [address] [place], [address], 06/07/2022 20:10:16 06/07/19 23 06/07/2022 CBC WITH DIFFE RENTI AL/PL ATELE T basos 0.5 % 0.0-1. 0 Not Available [facility] [address] [place], [address], 06/07/2022 20:10:16 06/07/19 23 06/07/2022 CBC WITH DIFFE RENTI AL/PL ATELE T neutrophils (absolute) 4.4 K/uL 1.4-7. 0 Not Available [facility] [address] [place], [address], 06/07/2022 20:10:16 06/07/19 23 06/07/2022 CBC WITH DIFFE RENTI AL/PL ATELE T lymphs (absolute) 2.8 K/uL 0.7-3. 1 Not Available [facility] Department [address] [place], [address], 06/07/2022 20:10:16 06/07/19 23 06/07/2022 CBC WITH DIFFE RENTI AL/PL ATELE T monocytes(ab solute) 0.5 K/uL 0.1-0. 9 Not Available [facility] [address] [place], [address], 06/07/2022 20:10:16 06/07/19 23 06/07/2022 CBC WITH DIFFE RENTI AL/PL ATELE T eos (absolute) 0.2 K/uL 0.0-0. 4 Not Available [facility] [address] [place], [address], 06/07/2022 20:10:16 06/07/19 23 06/07/2022 CBC WITH DIFFE RENTI AL/PL ATELE T baso (absolute) 0.0 K/uL 0.0-0. 3 Not Available [facility] [address] [place], [address], 06/07/2022 20:10:16 06/07/19 23 06/07/2022 CBC WITH DIFFE RENTI AL/PL ATELE T immature granulocytes 1.1 % Not Available [facility] Department [address] [place], [address], 06/07/2022 20:10:16 06/07/19 23 06/07/2022 CBC WITH DIFFE RENTI AL/PL ATELE T immature grans (abs) 0.1 K/uL Not Available [facility] Department [address] [place], [address], 06/07/2022 20:10:16 06/07/19 23 06/07/2022 CBC WITH DIFFE RENTI AL/PL ATELE T NRBC 0 % Not Available [facility] Department [address], [place], [address], 06/07/2022 20:10:16 06/07/19 23 06/08/2022 VITAM IN B12 AND FOLAT E vitamin B12 200 pg/mL 232-12 45 below low normal Not Available [facility] ([facility]) [address] [place], [address], 06/08/2022 08:21:01 06/07/19 23 06/08/2022 VITAM IN B12 AND FOLAT E folate (folic acid), serum 7.1 NG/mL >3.0 A serum folat e maribel ntrat ion of less than 3.1 ng/mL is consi dered to repre sent clini deann defic iency . Not Available [facility] ([facility]) [address] [place], [address], 06/08/2022 08:21:01 06/07/19 23 06/08/2022 IRON AND TIBC iron bind.cap.(TI BC) 374 ug/dL 250-45 0 Not Available [facility] ([facility]) [address] [place], [address], 06/08/2022 08:21:02 06/07/19 23 06/08/2022 IRON AND TIBC UIBC 312 ug/dL 131-42 5 Not Available [facility] ([facility]) [address] [place], [address], 06/08/2022 08:21:02 06/07/19 23 06/08/2022 IRON AND TIBC iron 62 ug/dL 27-159 Not Available [facility] ([facility]) [address] [place], [address], 06/08/2022 08:21:02 06/07/19 23 06/08/2022 IRON AND TIBC iron saturation 17 % 15-55 Not Available [facility] ([facility]) [address] [facility], [place], [address], 06/08/2022 08:21:02 06/07/19 23 06/08/2022 JIM TIN ferritin 97 NG/mL 15-150 Not Available [facility] ([facility]) [address] [facility], [place], [address], 06/08/2022 08:21:03 06/07/19 23 06/08/2022 VITAM IN D, 25-HY DROXY vitamin D, 25-hydroxy 9.5 NG/mL 30.0-1 00.0 below low normal Vitam in D defic iency has been defin ed by the Insti tute of Medic ine and an Endoc rine Socie ty pract ice guide line as a level of serum 25-OH vitam in D less than 20 ng/mL (1,2) . The Endoc rine Socie ty went on to furth er defin e vitam in D insuf ficie ncy as a level betwe en 21 and 29 ng/mL (2). 1. IOM (Inst itute of Medic ine). 2009. Dieta ry refer ence intak es for calci um and D. Fany osei [place]: The [facility] . 2. Gillian campuzano MF, Teressa alexander [place], Kavin off-F errar i LUNA, et al. Evalu ation , treat ment, and preve ntion of vitam in D defic iency : an Endoc rine Socie ty clini deann pract ice guide line. JCEM. 2010; 96(7) :1911 -30. Not Available [facility] ([facility]) [address] [facility], [place], [address], 06/08/2022 08:21:03 06/13/19 23 06/13/2022 rapid strep group A, throa t Strep negati ve Not Available In-Office Order Internal Use Only DO Not Attach Compendium DO Not Attach Compendium, Do Not Delete/merge, [id number] 06/13/2022 12:24:10 06/17/1906/17/2022 rsv (resp irato ry syncy tial virus ), rapid , nasop haryn geal RSV negati ve Not Available In-Office Order Internal Use Only DO Not Attach Compendium DO Not Attach Compendium, Do Not Delete/merge, [id number] 06/17/2022 12:08:23 06/17/19 23 06/17/2022 rapid flu (A+B) Flu A negati ve Not Available In-Office Order Internal Use Only DO Not Attach Compendium DO Not Attach Compendium, Do Not Delete/merge, [id number] 06/17/2022 12:08:19 06/17/19 23 06/17/2022 rapid flu (A+B) Flu B negati ve Not Available In-Office Order Internal Use Only DO Not Attach Compendium DO Not Attach Compendium, Do Not Delete/merge, [id number] 06/17/2022 12:08:19 06/17/19 23 06/17/2022 rapid SARS CoV 2 Ag, QL IA, respi rator y speci men rapid SARS CoV 2 Ag, QL IA, respiratory specimen negati ve Not Available In-Office Order Internal Use Only DO Not Attach Compendium DO Not Attach Compendium, Do Not Delete/merge, [id number] 06/17/2022 12:08:27 12/08/19 24 12/09/2023 VITAM IN B12 AND FOLAT E vitamin B12 506 pg/mL 232-12 45 Not Available [facility] ([facility]) [address] [facility], [place], [address], 12/09/2023 08:32:15 12/08/19 24 12/09/2023 VITAM IN B12 AND FOLAT E folate (folic acid), serum 5.6 NG/mL >3.0 A serum folat e maribel ntrat ion of less than 3.1 ng/mL is consi dered to repre sent clini deann defic iency . Not Available [facility] ([facility]) [address] [facility], [place], [address], 12/09/2023 08:32:15 12/08/19 24 12/09/2023 VITAM IN D, 25-HY DROXY vitamin D, 25-hydroxy 42.1 NG/mL 30.0-1 00.0 Vitam in D defic iency has been defin ed by the Insti tute of Medic ine and an Endoc rine Socie ty pract ice guide line as a level of serum 25-OH vitam in D less than 20 ng/mL (1,2) . The Endoc rine Socie ty went on to furth er defin e vitam in D insuf ficie ncy as a level betwe en 21 and 29 ng/mL (2). 1. IOM (Inst itute of Medic ine). 2010. Dieta ry refer ence intak es for calci um and D. Fany osei [place]: [facility] . 2. Gillian campuzano MF, Teressa alexander [place], Kavin off-F errar i LUNA, et al. Evalu ation , treat ment, and preve ntion of vitam in D defic iency : an Endoc rine Socie ty clini deann pract ice guide line. JCEM. 2010; 96(7) :1911 -30. Not Available [facility] ([facility]) [address], [place], [address], 12/09/2023 08:32:15 01/04/20 23 01/03/2023 US, abdom en, compl ete No observ ation record ed. [address] [place], [address], 01/07/2023 15:18:09 12/11/19 24 12/10/2023 XR, chest , 2 view No observ ation record ed. [facility] [address] [facility] [address], [place], [address], 12/14/2023 22:25:40 12/23/19 24 12/23/2023 XR, chest , 2 view No observ ation record ed. [address], [address], 12/23/2023 10:56:57 Result Notes None recorded. Problems Name Problem SNOMED Code Status Onset Date Resolution Date Notes Provider Name and Address Organization Details Recorded Time Right sided abdominal pain 986162198 Active 2017 Not Available [facility] 3 09:37:53 Vitamin D deficiency 73967573 Active 2022 Not Available [facility] 3 09:37:53 Vitamin B12 deficiency (non anemic) 13523981 Active 2022 Not Available [facility] 3 09:37:53 Asthma 125664318 Active 2023 FLORENCIO HENRIQUEZ Attn: Accounting ,[address] [place], [address] , [place] 10:35:59 Problem Notes None recorded. Procedures Surgical History None recorded. Imaging Results Imaging Date Name Status LastModified by Organiz ation Details LastModified Time 01/03/2023 US, abdomen, complete completed [address] [place], [address], 01/07/2023 15:18:09 12/10/2023 XR, chest, 2 view completed [address], [address], 12/14/2023 22:25:40 12/23/2023 XR, chest, 2 view completed [address], [address], 12/23/2023 10:56:57 Procedure Notes None recorded. Medical Equipment None Reported. Allergies Allergen ID Allergen Name Allergen Category Reaction Reaction Severity Criticality Documentation Date Start Date Code Code System Note Provider Name and Address Organization Details Recorded Time [id number] amoxicill in medicatio n Not available Not available Not available 11/27/2021 723 RxNorm Not Available Not Available Not Available [id number] 7f818 ondansetr on medicatio n headache severe high 12/05/2021 40639 RxNorm Not Available Not Available Not Available Medications Name Sig Start Date Stop Date Status Note LastModified by Organization Details LastModified Time cyclobenz aprine 10 mg tablet TAKE 1 TABLET BY MOUTH THREE TIMES DAILY NEEDED FOR MUSCLE SPASM 01/05 completed Not Available Not Available Not Available clindamyc in HCl 300 mg capsule TAKE 1 CAPSULE BY MOUTH EVERY 8 HOURS 08/28 completed Not Available Not Available Not Available azithromy lindsay 250 mg tablet TAKE 2 TABLETS (500 MG) BY ORAL ROUTE ONCE DAILY FOR 1 DAY THEN 1 TABLET (250 MG) BY ORAL ROUTE ONCE DAILY FOR 4 DAYS active Not Available Not Available No t Available ibuprofen 800 mg tablet TAKE 1 TABLET BY MOUTH THREE TIMES DAILY FOR 7 DAYS NEEDED FOR PAIN 01/05 completed Not Available Not Available Not Available benzonata te 200 mg capsule TAKE 1 CAPSULE BY MOUTH EVERY 8 HOURS NEEDED FOR COUGH 01/05 completed Not Available Not Available Not Available cephalexi n 250 mg capsule TAKE 4 CAPSULES BY MOUTH 1 HOUR BEFORE APPOINTM ENT 04/18 completed Not Available Not Available Not Available hydrocodo ne 5 mg-acetam inophen 325 mg tablet TAKE 1 TABLET BY MOUTH EVERY 6 HOURS NEEDED 12/17 completed Not Available Not Available Not Available Nystop 100,000 unit/gram topical powder APPLY EXTERNAL LY TO THE AFFECTED AREA TWICE DAILY FOR 10 DAYS 11/17 completed Not Available Not Available Not Available ondansetr on HCl 4 mg tablet TAKE 1 TABLET BY MOUTH EVERY 8 HOURS 12/05 completed Severe Headache s Not Available Not Available Not Available prednison e 20 mg tablet TAKE 2 TABLETS BY MOUTH IN THE MORNING WITH FOOD FOR 5 DAYS 01/05 completed Not Available Not Available Not Available cyanocoba cheri (vit B-12) 1,000 mcg tablet TAKE 1 TABLET BY MOUTH EVERY DAY BEFORE MEAL active Not Available Not Available No t Available ciproflox acin 500 mg tablet TAKE 1 TABLET BY MOUTH EVERY 12 HOURS AFTER MEALS FOR 5 DAYS 12/05 completed Not Available Not Available Not Available acetamino phen 500 mg tablet TAKE 2 TABLETS BY MOUTH THREE TIMES DAILY NEEDED FOR PAIN. 01/05 completed Not Available Not Available Not Available triamcino lone acetonide 0.1 % topical cream APPLY THIN LAYER TOPICALL Y TO THE AFFECTED AREA TWICE DAILY FOR 7 DAYS 11/17 completed Not Available Not Available Not Available baclofen 20 mg tablet Take 1 tablet 3 times a day by oral route as needed for 30 days. 03/29 completed Not Available Not Available Not Available oxycodone -acetamin ophen 5 mg-325 mg tablet TAKE 1 TABLET BY MOUTH EVERY 4 TO 6 HOURS NEEDED 11/25 completed Not Available Not Available Not Available famotidin e 20 mg tablet TAKE 1 TABLET BY MOUTH EVERY DAY IN THE MORNING active Not Available Not Available No t Available methocarb yakov 750 mg tablet TAKE 2 TABLETS BY MOUTH THREE TIMES DAILY 01/05 completed Not Available Not Available Not Available baclofen 10 mg tablet Take 1 tablet 3 times a day by oral route as needed for 30 days. 03/29 completed Not Available Not Available Not Available doxycycli ne monohydra te 100 mg capsule TAKE 1 CAPSULE BY MOUTH TWICE DAILY 01/05 completed Not Available Not Available Not Available nystatin 100,000 unit/gram topical cream APPLY EXTERNAL LY TO THE AFFECTED AREA TWICE DAILY 06/21 completed Not Available Not Available Not Available lidocaine 5 % topical patch APPLY 1 PATCH TOPICALL Y TO MOST PAINFUL AREA FOR UP TO 12 HOURS ONCE A DAY 01/05 completed Not Available Not Available Not Available hydrocort isone 2.5 % topical cream APPLY THIN LAYER EXTERNAL LY TO THE AFFECTED AREA TWICE DAILY NEEDED FOR ITCHING 09/21 completed Not Available Not Available Not Available monteluka st 10 mg tablet TAKE 1 TABLET BY MOUTH EVERY DAY DIRECTED active Not Available Not Available No t Available methylpre dnisolone 4 mg tablets in a dose pack FOLLOW PACKAGE DIRECTIO NS. TAKE WITH FOOD. 04/18 completed Not Available Not Available Not Available albuterol sulfate HFA 90 mcg/actua tion aerosol inhaler INHALE 2 PUFFS BY MOUTH EVERY 4 HOURS NEEDED active Not Available Not Available No t Available fluticaso ne propionat e 50 mcg/actua tion nasal spray,ninfa pension SHAKE LIQUID AND USE 1 SPRAY IN EACH NOSTRIL EVERY DAY DIRECTED active Not Available Not Available No t Available naproxen 500 mg tablet TAKE 1 TABLET BY MOUTH TWICE DAILY NEEDED FOR PAIN. 06/21 completed Not Available Not Available Not Available amoxicill in 875 mg-potass ium clavulana te 125 mg tablet TAKE 1 TABLET BY MOUTH EVERY 12 HOURS FOR 10 DAYS 11/27 completed Not Available Not Available Not Available cholecalc iferol (vitamin D3) 1,250 mcg (50,000 unit) capsule TAKE ONE CAPSULE BY MOUTH ONCE A WEEK WITH A MEAL DIRECTED active Not Available Not Available No t Available calamine 8 %-zinc oxide 8 % lotion Apply 1 applicat ion twice a day by topical route as directed for 7 days. 04/18 completed Not Available Not Available Not Available Aveeno Soothing Bath packet Apply 1 packet twice a day by topical route as needed for 5 days. 06/21 completed Not Available Not Available Not Available Dulera 200 mcg-5 mcg/actua tion HFA aerosol inhaler INHALE 2 PUFFS BY MOUTH TWICE DAILY DIRECTED 2023 active Not Available Not Available Not Avai lable guaifenes in ER 600 mg tablet, extended release 12 hr TAKE 1 TABLET BY MOUTH EVERY 12 HOURS FOR 7 DAYS DIRECTED 11/25 completed Not Available Not Available Not Available Vitals Date Recorded Body height Provider Name an d Address Organization Details Last Updated DateTime 06/17/2022 160.66 cm STEPHANIA James [facility] 3 11:52:24 Date Recorded Body mass index (BMI) Body weight Provider Name and Address Organization Details Last Updated DateTime 06/17/2022 45.5 kg/m2 175949.42 g STEPHANIA James [facility] 06/17/2022 11:52:32 Date Recorded Respiratory rate Provider Name a nd Address Organization Details Last Updated DateTime 06/17/2022 20 /min STEPHANIA James [facility] 3 11:53:20 Date Recorded Heart rate Provider Name an d Address Organization Details Last Updated DateTime 06/17/2022 61 /min STEPHANIA James [facility] 3 11:53:22 Date Recorded Oxygen saturation Oxygen saturation in Arterial blood by Pulse oximetry Provider Name and Address Organization Details Last Updated DateTime 06/17/2022 98 % 98 % STEPHANIA James [facility] 06/17/2022 11:53:24 Date Recorded Body temperature Provider Name a nd Address Organization Details Last Updated DateTime 06/17/2022 97.7 [degF] Brittnee STEPHANIA Finley [place] - [facility] 06/17/19 11:53:27 Date Recorded Body height Provider Name an d Address Organization Details Last Updated DateTime 11/25/2022 160.66 cm Silvia Troncoso [facility] - SI 11/26/19 10:43:55 Date Recorded Body mass index (BMI) Body weight Provider Name and Address Organization Details Last Updated DateTime 11/25/2022 45.9 kg/m2 529987.61 g Silvia Karyna, [facility] - [facility] 11/25/2022 10:51:48 Date Recorded Oxygen saturation Oxygen saturation in Arterial blood by Pulse oximetry Provider Name and Address Organization Details Last Updated DateTime 11/25/2022 98 % 98 % Silvia Troncoso [facility] - [facility] 11/25/2022 10:51:49 Date Recorded Heart rate Provider Name an d Address Organization Details Last Updated DateTime 11/25/2022 94 /min Silvia Karyna, [facility] - [facility] 11/26/19 10:51:51 Date Recorded Respiratory rate Provider Name a nd Address Organization Details Last Updated DateTime 11/25/2022 18 /min Silvia Karyna [facility] - [facility] 11/26/19 10:51:53 Date Recorded Body temperature Provider Name a nd Address Organization Details Last Updated DateTime 11/25/2022 98.8 [degF] Silvia Troncoso [facility] - [facility] 023 10:51:58 Date Recorded Body height Provider Name an d Address Organization Details Last Updated DateTime 04/18/2023 160.66 cm Silvia Mayer [place] - [place] 14:13:58 Date Recorded Body mass index (BMI) Body weight Provider Name and Address Organization Details Last Updated DateTime 04/18/2023 43 kg/m2 908232.34 g Silvia Mayer [facility] - [facility] 1 14:16:13 Date Recorded Oxygen saturation Oxygen saturation in Arterial blood by Pulse oximetry Provider Name and Address Organization Details Last Updated DateTime 04/18/2023 99 % 99 % Silviara MayerSTEPHANIA [facility] SI 04/18/2023 14:17:14 Date Recorded Heart rate Provider Name an d Address Organization Details Last Updated DateTime 04/18/2023 83 /min Silvia Mayer MA [facility] 3 14:17:16 Date Recorded Respiratory rate Provider Name a nd Address Organization Details Last Updated DateTime 04/18/2023 17 /min Silvia Mayer MA [facility] SI 3 14:17:19 Date Recorded Body temperature Provider Name a nd Address Organization Details Last Updated DateTime 04/18/2023 98.4 [degF] Silvia Mayer MA [facility] SI 04/18/20 23 14:17:23 Date Recorded Body height Provider Name an d Address Organization Details Last Updated DateTime 11/18/2023 160.66 cm Gwendolyn Eldridge MA [facility] SI 11/18/19 24 10:13:21 Date Recorded Body mass index (BMI) Body weight Provider Name and Address Organization Details Last Updated DateTime 11/18/2023 49 kg/m2 129203.83 g Gwendolyn Eldridge MA [facility] 11/18/2023 10:13:38 Date Recorded Oxygen saturation Oxygen saturation in Arterial blood by Pulse oximetry Provider Name and Address Organization Details Last Updated DateTime 11/18/2023 100 % 100 % Gwendolyn Eldridge MA [facility] 11/18/2023 10:13:42 Date Recorded Heart rate Provider Name an d Address Organization Details Last Updated DateTime 11/18/2023 88 /min Gwendolyn Eldridge MA [facility] 11/18/19 24 10:13:45 Date Recorded Respiratory rate Provider Name a nd Address Organization Details Last Updated DateTime 11/18/2023 18 /min FLORENCIO HENRIQUEZ Attn: Accounting,[address] [place], [address], [facility] 11/18/2023 17:12:21 Date Recorded Body height Provider Name an d Address Organization Details Last Updated DateTime 01/06/2024 160.66 cm Brittnee Finley MA [facility] SI 16:50:17 Date Recorded Body mass index (BMI) Body weight Provider Name and Address Organization Details Last Updated DateTime 01/06/2024 48.3 kg/m2 620021.9 g Brittnee Finley MA [facility] 0 01/06/2024 16:52:51 Date Recorded Oxygen saturation Oxygen saturation in Arterial blood by Pulse oximetry Provider Name and Address Organization Details Last Updated DateTime 01/06/2024 98 % 98 % Brittnee Finley MA [facility] 01/06/2024 16:52:52 Date Recorded Heart rate Provider Name an d Address Organization Details Last Updated DateTime 01/06/2024 72 /min Brittnee Finley MA [facility] 16:52:56 Date Recorded Respiratory rate Provider Name a nd Address Organization Details Last Updated DateTime 01/06/2024 18 /min Brittnee Finley MA [facility] 16:52:58 Date Recorded Systolic blood pressure Diastolic blood pressure Provider Name and Address Organization Details Last Updated DateTime 06/17/2022 124 mm[Hg] 88 mm[Hg] Brittnee Finley MA [facility] 06/17/2022 11:54:06 Date Recorded Systolic blood pressure Diastolic blood pressure Provider Name and Address Organization Details Last Updated DateTime 11/25/2022 122 mm[Hg] 74 mm[Hg] Silvia Troncoso CMA [facility] 11/25/2022 10:52:02 Date Recorded Systolic blood pressure Diastolic blood pressure Provider Name and Address Organization Details Last Updated DateTime 04/18/2023 124 mm[Hg] 76 mm[Hg] Silvia Mayer MA [facility] 04/18/2023 14:17:27 Date Recorded Systolic blood pressure Diastolic blood pressure Provider Name and Address Organization Details Last Updated DateTime 11/18/2023 115 mm[Hg] 72 mm[Hg] Gwendolyn Eldridge MA [facility] 11/18/2023 10:13:30 Date Recorded Systolic blood pressure Diastolic blood pressure Provider Name and Address Organization Details Last Updated DateTime 01/06/2024 124 mm[Hg] 82 mm[Hg] Brittnee Finley MA [facility] 01/06/2024 16:52:48 Social History Question Answer Notes LastModified by Organizat ion Details LastModified Time Tobacco Smoking Status Never Smoker Jaskaran Olivarez MA null, [place] - [facility] 03/10/2018 14:33:42 What Is Your Level Of Alcohol Consumption? None Information not available 03/10/2018 Are You Blind Or Do You Have Difficulty Seeing? No Information n ot available 07/26/2021 What Is Your Level Of Caffeine Consumption? Heavy Information not available 07/26/2021 In The 14 Days Before Symptom Onset, Have You Had Close Contact With A Laboratory-confirm ed COVID-19 While That Case Was Ill? No Information n ot available 07/26/2021 In The 14 Days Before Symptom Onset, Have You Had Close Contact With A Person Who Is Under Investigation For COVID-19 While That Person Was Ill? No Information not available 07/26/2021 Have You Been To An Area Known To Be High Risk For COVID-19? Yes Information not available 07/26/2021 Are You Deaf Or Do You Have Serious Difficulty Hearing? No Information not available 07/26/2021 What Type Of Diet Are You Following? REGULAR Information n ot available 07/26/2021 Are There Any Guns Present In Your Home? No Information not available 07/26/2021 What Was The Date Of Your Most Recent Tobacco Screening? 01/06/2024 [email or web address] Information not available 01/06/2024 Do You Have Smoke And Carbon Monoxide Detectors In Your Home? Yes Information not available 07/26/2021 Are You Passively Exposed To Smoke? No [email or web address] Information no t available 05/01/2022 Do You Use Any Illicit Or Recreational Drugs? No [email or web address] Information not available 05/01/2022 Do You Use Sunscreen Routinely? No Information not available 07/26/2021 Has Tobacco Cessation Counseling Been Provided? Yes [email or web address] Information not available 05/01/2022 On What Date Was Tobacco Cessation Counseling Provided? 01/06/2024 [email or web address] Information not available 01/06/2024 Do You Or Have You Ever Used Any Other Forms Of Tobacco Or Nicotine? No [email or web address] Information not available 09/21/2020 Sex: Female Functional Status Question Answer Note LastModified by Organization D etails LastModified Time Are you able to care for yourself? Yes Information n ot available 07/26/2021 What is your exercise level? None Information not available 07/26/2021 Mental Status None recorded. Family History Relationship Description Onset Age of this Age Resolved Age Notes LastModified by Organization Details LastModified Time Sister Asthma Not available 03/10/2018 14:31:32 Mother Diabetes mellitus [email or web address] Not available 03/10 14:31:43 Mother Hypertensive disorder [email or web address] Not available 03/10 14:33:25 Mother Hypercholest erolemia [email or web address] Not available 03/10 14:33:36 Medical History Condition Response Coronary Artery Disease N Other N High Blood Pressure N Atrial Fibrillation N Thyroid Problems N Kidney or Bladder Problems N GI Problems N Depression N COPD N Blood Clots N Skin Problems N Eating Disorder N Anemia N Heart Attack (OR) N Anxiety Disorder N Diabetes N Muscle, Joint, or Bone Problems N Seizures/Epilepsy N Acid Reflux (GERD) N Cancer N Stroke N Asthma N Allergies N ADHD N Substance Abuse N High Cholesterol N Hepatitis N Liver Disease N Schizophrenia N Headaches N Heart Failure N Osteoporosis N Gynecological History Statement/Question Response Flow Light Date of LMP 04/08/2022 On BCP's at Conception? N Menses Monthly Y Date of Last Pap Smear Current Control Method None LMP Definite Obstetrics History GPAL:G 0 P 0 0 0 0 Immunizations Vaccine Type Date Status Note Provider Nam e and Address Organization Details Recorded Time Influenza, split virus, quadrivalent, preservative 0 completed Anant Menjivar MD Attn: Accounting,[address] [place], [address], [facility] - [facility] 06/28/2019 18:48:06 Past Encounters Encounter ID Performer Location Encounter Start Date Encounter Closed Date Diagnosis/Indication Diagnosis SNOMED-CT Code Diagnosis ICD10 Code Diagnosis Note [id number] MD Kylie Cooper (Adult Med) [address] [place] [address] 03/10/2018 14:01:41 03/10/2018 15:16:05 Chronic abdominal pain 978525958 R10.9 [id number] MD Kylie Cooper (Adult Med) [address] [place] [address]2236[address] 04/03/2018 16:01:27 04/06/2018 11:41:43 History of asthma 374487331 Z87.09 Discussed with patient and her older sister today in this office. Right uppe r quadrant pain 073363523 R10.11 Discussed with patient and her older sister in this office. Will have US of Gall bladder on 04-10-2018 . Advised patient to go to ER any time for any concern, they understood and agreed. [id number] MD Kylie Cooper (Adult Med) [address] [place] [address]102[address] 0 06/28/2019 16:30:39 06/29/2019 11:32:42 History of asthma 557504381 Z87.09 Discussed with patient and her older sister today in this office. Administra tion of influenza vaccine 02259995 Z23 [id number] MD Kylie Cooper (Adult Med) [address] [place] [address] 0 02/01/2020 08:35:13 02/02/2020 10:57:16 Asthma 443197126 J45.909 History of asthma 939760 007 Z87.09 Discussed with patient and her older sister today in this office. [id number] MD Kylie Cooper (Adult Med) [address] [place] [address]483[address]791 0 05/19/2020 14:46:00 05/23/2020 07:51:27 Tinea corporis 33356762 B35.4 Discussed with patient, she agreed to try topical cream as ordered, and will keep this office informed. History of asthma 326178 007 Z87.09 Discussed with patient and her older sister today in this office. [id number] MD Kylie Cooper (Adult Med) [address] [place] [address] 0 09/21/2020 09:53:14 09/22/2020 21:37:54 Contact dermatitis caused by urushiol from [facility] sam 811405815 L25.5 Discussed with patient, willing to try med as ordered. Asthma 418327656 J45.90 9 Stable, no wheezing today, will refill med. [id number] MD Kylie Cooper (Adult Med) [address] [place] [address]47[address] 0 02/06/2021 13:13:32 02/08/2021 13:00:57 Contact dermatitis caused by urushiol from [facility] sam 000997200 L25.5 Discussed with patient, willing to try med as ordered. [id number] MD Kylie Cooper (Adult Med) [address] [place] [address] 80479-323 0 06/21/2021 16:16:34 06/25/2021 11:32:23 Blurring of visual image 113344494 H53.8 No palpitatio n, no perspirati on, blurred vision , went to ER and was released, today blood pressure reading is 120./78 mm HG. sitting . left arm. heart regular no murmur. Will refer to ophthalmol ogist, she greed. Right uppe r quadrant pain 443212320 R10.11 Discussed with patient and her older sister in this office. Will have US of Gall bladder on 04-10-2018 . Advised patient to go to ER any time for any concern, they understood and agreed.Tod ay 06-21-2021 , abdomen soft, no rebounding pain, no mass. will check gallbladde r U/S as she asks. Advised to avoid spicy/grea sy food. Morbid obesity 521094522 E66.01 Diet, exercise and lose weight. [id number] MD Kylie Cooper (Adult Med) [address] [place] [address] 36165-[address] 0 07/26/2021 12:08:35 07/27/2021 10:58:53 Irregular heart beat 054845683 R00.8 Discussed with patient, she agreed for the out patient holter monitor to start with. Auscultati on of heart at this moment , regular, no murmur. Lungs clear to auscultati on. ne elevated JVP, no edema of legs/feet. No difficulty of breathing. [id number] MD Kylie Cooper (Adult Med) [address] [place] [address] 92710-614 0 08/24/2021 16:39:17 08/27/2021 08:48:56 Right sided abdominal pain 015842181 R10.9 Asthma 734222203 J45.90 9 Stable, no wheezing today, will refill med. [id number] MD Kylie Cooper (Adult Med) [address] [place] [address] 91270-034 0 11/27/2021 09:39:55 11/28/2021 11:54:07 Calculus of gallbladder with cholecystitis 01268874 K80.10 She went to Er, was treated wih amoxicilli n , 2 days ago, skin broke out, so she stopped it, but right flank still hurts from time to time, has been referred to general surgeon Dr. Streeter, since June 2021, but she has not made appointmen t yet.Advise d to avoid greasy or fatty food to minimize the gall bladder attack, she agreed. [id number] MD Kylie Cooper (Adult Med) [address] [place] [address] 62822-729 0 12/05/2021 11:51:30 12/06/2021 10:59:26 Right sided abdominal pain 867034857 R10.9 Gall stone, will have appointmen t tomorrow with general surgeon . Low back pain 694019290 M54.50 M54.51 Discussed with patient, she agreed for the x ray, not , and PT for the mean time. Probabaly local muscular pain no sign of radiculopa thy. Gynecologi c examination 56309030 Z01.419 She wants to be referred to [facility] Hale [address] [place] [id number] MD Kylie Cooper (Adult Med) [address] [place] [address] 89646[address]566 0 12/17/2021 10:10:55 12/18/2021 08:45:51 Acute laryngitis 1378298 J04.0 Discussed with patient, she greed to try ABS in the mean time. Gallstone 664479527 K80. 20 Will see a surgeon. [id number] MD Kylie Cooper (Adult Med) [address] [place] [address] [place] [address] 01/02/2022 14:34:09 01/04/2022 09:39:33 Chronic neck pain 8180581570 107 M54.2 Discussed with patient, she agreed for x ray, Pt, muscle relaxant and ENT referral. [id number] [facility] [address] [place] [address] 0 01/09/2022 16:02:03 01/10/2022 11:03:40 Acute tonsillitis 03336049 J03.90 Discussed with patient, she agreed to try ABS as ordered, and observe the tiny nut on the neck. [id number] Anant Menjivar MD [facility] (Adult Med) [address] [place] [address] 63733[address]511 0 01/17/2022 16:41:49 01/18/2022 10:43:20 Generalized aches and pains 53758372 R52 Aching all over. lower abdomen . back and her shoulder. No fever. Discussed with patient, she agreed to try muscle relaxant. Gallstone 155408938 K80. 20 Will see a surgeon. She chicken out she said. [id number] FLORENCIO HENRIQUEZ [facility] [address] [place] [address] 03/29/2022 11:30:16 04/02/2022 12:01:47 Exposure to Influenzavirus 716129536 Z20.828 x1 daysore throat, myalgias, subjective fever, chills, headaches, ear pressure, cough, congestion , rhinorrhea , decreased appetiteNo sick contactsta nelida tylenol and sinus medication w/o relieftook tylenol at 5 AMdid not receive flu shot this yearfebril e in office, 100.5 FPEx- tachycardi a, normal rhythmmost likely influenzao ut of rapid flu tests in officeadvi sed pt to go to [facility] for testingcan give tamiflu if pt provides results to portal by tomorrowc/ w OTC medsPatien t was advised to go to the ED for worsening signs or symptoms including chest pain, SOB, fever, or unable to keep down food or liquids. - Drink lots of fluids, water, gatorade.- Run a cool-mist humidifier in your room at night.- For sore throat, gargle warm salt water.- Get extra rest and do not over-exert yourself.- Do not mix multiple medication s with similar ingredient s (for instance Theraflu Non-drowsy and Tylenol Sinus). Doubling up on acetaminop hen and/or decongesta nts such as pseudephed rine can be dangerous. - Robitussin DM at bed time only (if cough keeps you awake) (and if not or on SSRI antidepres sants. Cervical lymphadenopathy 284613246 R59.0 x3 monthsprev ious PCP took neck XR, told it was normalPEx- mild cervical LAD, mild TTPreassur ed ptmost likely lymph node enlargemen t due to viral illnessoff ered neck US, will defer at this time Morbid obesity 444254594 E66.01 [id number] FLORENCIO HENRIQUEZ [facility] [address] [place] [address] 05/01/2022 15:49:02 05/02/2022 15:56:32 Cervical lymphadenopathy 772917546 R59.0 05/01/22:un changed from previous exampt requesting imaging, will obligeorde red US neck soft tissue 03/29/22:x3 monthsprev ious PCP took neck XR, told it was normalPEx- mild cervical LAD, mild TTPreassur ed ptmost likely lymph node enlargemen t due to viral illnessoff ered neck US, will defer at this time Morbid obesity 747585951 E66.01 Right flank pain 3018172 09 R10.9 x2 wksburning pain to R flankno trauma or injurypain does not radiate, worse with movementsi milar sx related to gallstones , wraps around to her backhas not taken any meds for sxno n/v or urinary symptomsPE x- mild R sided CVATmost likely muscle strain vs GB painpt has GI appt in 3 wks and advised pt to discuss with providertr ial NSAIDs PRN and heating padf/u if no relief and can trial muscle relaxer Right side d abdominal pain 379484227 R10.9 [id number] FLORENCIO HENRIQUEZ [facility] [address] [place] [address] 06/07/2022 13:56:12 06/07/2022 14:58:15 Fatigue 09560874 R53.83 x3 wksrec'd improve sleep hygiene, go to bed at the same time every night, sleep for 8 hrs and set alarm to wake upepworth sleepiness scale 7, normalchec k vitamins, iron, electrolyt es Cervical lymphadenopathy 100403578 R59.0 06/07/22:di d not completere -print order 05/01/22:un changed from previous exampt requesting imaging, will obligeorde red US neck soft tissue 03/29/22:x3 monthsprev ious PCP took neck XR, told it was normalPEx- mild cervical LAD, mild TTPreassur ed ptmost likely lymph node enlargemen t due to viral illnessoff ered neck US, will defer at this time Morbid obesity 605639070 E66.01 discussed increasing exercise and healthier food options, high protein, low fat diet Daytime hypersomnia 3177 532665 8934 G47.19 will refer to sleep study if labs are normal [id number] FLORENCIO HENRIQUEZ [facility] [address] [place] [address] 06/13/2022 11:34:28 06/13/2022 13:03:10 Sore throat 400364909 J02.9 rapid strep negativere c'd warm salt water garglesalt between tylenol and ibuprofen for pain relieff/u if symptoms do not improve [id number] FLORENCIO HENRIQUEZ [facility] [address] [place] [address] 06/17/2022 11:50:06 06/17/2022 12:50:45 Upper respiratory infection 92228203 J06.9 x3 daysmom with similar sxnot taking any medsrapid strep 06/13/22 negativeVS SPEx- middle ear fluid and bulging TMs bilaterall yrapid flu, RSV, COVID negativemo st likely viral URItrial mucinex, delsym, nyquil, vitamin Cf/u in 7 days if sx do not improve - Drink lots of fluids, water, gatorade. - Run a cool-mist humidifier in your room at night. - For sore throat, gargle warm salt water. - Get extra rest and do not over-exert yourself. - Do not mix multiple medication s with similar ingredient s (for instance Theraflu Non-drowsy and Tylenol Sinus). Doubling up on acetaminop hen and/or decongesta nts such as pseudephed rine can be dangerous. - Robitussin DM at bed time only (if cough keeps you awake) (and if not or on SSRI antidepres sants. [id number] FLORENCIO HENRIQUEZ [facility] [address] [place] [address] 11/25/2022 10:40:30 11/26/2022 10:02:59 Asthma 694689905 J45.909 refill Nasal congestion 6286692 0 R09.81 refill Vitamin B1 2 deficiency (non anemic) 69407448 E53.8 refill Vitamin D deficiency 347 50849 E55.9 has been out for 3 monthswill re-check once she starts taking consistent ly Left upper quadrant pain 380864294 R10.12 x5 monthsshar p, pinching, randoma couple times/wk, can last all daynot a/w foodsno other GI sxnormal BMsPEx- mild epigastric TTPtrial [id number] US abd, LUQ Depression screening 171 874084 Z13.31 PHQ 1 History of cholecystectomy 327448005 Z90.49 06/2022requ ested records [id number] FLORENCIO HENRIQUEZ [facility] [address] [place] [address] 04/18/2023 13:59:54 04/23/2023 10:26:16 Depression screening 600290620 Z13.31 PHQ 0 Popping of right knee joint 0584235760 0174338 M23.8X1 x3 wksoccurre d with walking down stairsno trauma, injury or painworse with bending, sitting, walking down stairsdesc ribes as annoying PEx- mild crepitus with flexion of R knee joint, no edema or TTPreassur ed ptmost likely cartilage, tendon/lig ament catching with certain movementsr ec'd PT, pt declinedno interventi ons at this time [id number] FLORENCIO HENRIQUEZ [facility] [address] [place] [address] 11/18/2023 10:05:10 11/18/2023 10:36:53 Vitamin D deficiency 94162310 E55.9 11/18/23:re check todaylast level 05/2022: 9.5 has been out for 3 monthswill re-check once she starts taking consistent ly Asthma 635985843 J45.90 9 well controlled refill meds Gastroesop hageal reflux disease without esophagitis 323355662 K21.9 11/18/23:im provement with famotidine , sent refills x5 monthsshar p, pinching, randoma couple times/wk, can last all daynot a/w foodsno other GI sxnormal BMsPEx- mild epigastric TTPtrial [id number] US abd, LUQ Vitamin B1 2 deficiency (non anemic) 17610677 E53.8 refill and re-check levels Low back strain 86616599 1 S39.012A went to ED 11/06/23 for lower back painhas been picking up 80lb dogtaking flexeril and lidocaine patchesdec lines PT at this timef/u if no improvemen t Depression screening 171 708139 Z13.31 PHQ 0 Morbid obesity 149013049 E66.01 discussed increasing exercise and healthier food options, high protein, low fat diet [id number] FLORENCIO HENRIQUEZ [facility] [address] [place] [address] 01/06/2024 16:48:55 01/06/2024 17:20:14 Nasal congestion 98707381 R09.81 trial flonase for productive coughc/w singulair Productive cough 1325844 5 R05.9 x6 wkswent to ED 3 wks ago for bronchitis , given doxycyclin e, tessalon perles, and prednisone still c/o productive cough with white mucus for 4 wksc/o feeling mucus stuck in throat, no relief with mucinex, cough suppressan ts or antihistam inesno SOB, wheezing, or feversPEx- nltrial Z karthik for 4 days Health Concerns Section Related Observation LastModified by Organization Detai ls LastModified Time None Recorded Concern Status LastModified by Organization Details LastModified Time None Recorded Advance Directives Directive None Recorded Payers Encounter Date Sequence Insurance Name Policy Number Policy Hdez Covered Member ID Hdez Member ID Guarantor Name 06/17/2022 1 [facility] (MEDICAID REPLACEMENT - HMO) [id number] Bonnie Davila [id number] [facility] 11/25/2022 1 [facility] (MEDICAID REPLACEMENT - HMO) [id number] Bonnie Davila [id number] [facility] 04/18/2023 1 [facility] (MEDICAID REPLACEMENT - HMO) [id number] Bonnie Davila [id number] [facility] 11/18/2023 1 [facility] (MEDICAID HMO) [id number] Bonnie Giovanni [id number] [facility] 01/06/2024 1 [facility] (MEDICAID HMO) [id number] [facility] [id number] Bonnie Davila Notes Date Note Type Note Provider Name and Address Organization Details Recorded Time 06/17/2022 text/html Pt presents with productive cough with yellow sputum, nasal congestion, post nasal drip, and sore throat x3 days. Her mom is sick with similar sx. Pt took nyquil last night and no meds today. Denies fevers, chills, ear pain, myalgias, headaches or sinus tenderness. FLORENCIO HENRIQUEZ Attn: [address] [place], [address], [facility] 06/17/2022 13:03:03 11/25/2022 text/html Pt presents for nasal congestion, L sided abd pain and med refills.C/o nasal congestion x2 wks. No sick contacts. Has been taking tylenol w/o relief. Able to blow nose, but I just get stopped up again. C/o L sided abdominal pain x5 months. Cholecystectomy 06/2022. Describes pain as sharp, annoying, pinching pain, random can occur a couple times a week and last all day long. No symptoms a/w before or after meals. Denies fevers, chills, nausea, vomiting, constipation or diarrhea. Nothing makes it better or makes it worse. FLORENCIO HENRIQUEZ Attn: [address] [facility], [place], [address], [facility] 11/25/2022 13:59:16 04/18/2023 text/html Pt presents with R knee popping x3 wks. Occurred when she walking down her stairs to do laundry. No pain, trauma or injury. States that popping noise is annoying. Worse with walking down stairs, bending and sitting in chair. States 5 days ago, she slipped, fell in her kitchen and landed on both of her knees. No difficulty with ambulation. FLORENCIO HENRIQUEZ Attn: [address] [facility], [place], [address], [facility] 04/22/2023 17:37:15 11/18/2023 text/html Patient presents today for med refills. She went to the for ER for low back pain 2 weeks ago. It started as stiffness and continued to get worse. Patient has been having to steel pickler her 80lb dog. She said that it feels muscular in nature. No trauma or injury to the area. Patient is using good body mechanics when picking up the dog. She is currently taking flexeril and using lidocaine patches w/ some improvement. FLORENCIO HENRIQUEZ Attn: [address] [facility], [place], [address], [facility] 11/18/2023 17:13:41 01/06/2024 text/html Pt presents with cough for 6 wks. Reports she developed bronchitis 6 wks ago, went to ED 3 wks ago, given tessalon perles, prednisone, and doxycycline. States that for the past month she has had productive cough with white sputum, feels like mucus is stuck in her throat and unable to cough mucus up at times. Cough is worse at night and strong smells cause her to cough. Denies wheezing or SOB. She has been taking mucinex for 1 mo w/o relief. No improvement with cough syrup, benadryl or claritin. No fevers, chills, sore throat, ear pain, nasal congestion, rhinorrhea, sinus pressure or headaches. FLORENCIO HENRQIUEZ Attn: [address] [place], [address], [facility] 01/06/2024 17:36:38 OBGyn Episode No OBEpisode recorded.
--- OUTSIDE RECORDS SUMMARY | 2024-05-17 13:24 | XMS_ITS | CONTINUITY OF CARE DOCUMENT ---
Author Name maragret parvinkelsea Address Unknown Organization [facility] Address [address] [place] [address] Phone [phone] Care Team Providers Care Cd Storage And Materials Make Up Helper Name Role Phone Jayden NORTH, [place] Unavailable [phone] JIN ARCHER MD Unavailable [phone] JIN ARCHER MD Unavailable [phone] INSURANCE PROVIDERS Payer name Policy type / Coverage type [employer] party ID [facility] Medicaid [id number]
--- OUTSIDE RECORDS SUMMARY | 2024-05-17 13:24 | XMS_ITS | Data Portability ---
Author Organization [facility] [place] , [facility] Address [address] [place] [address] Care Team Providers Care Viscose Cellar Worker Name Role Phone [facility] Film Vault Supervisor Assessment No assessment recorded. Plan of Treatment Reminders Order Date Submit Date Provider Last Modified By Organization Details Last Modified Time Details Appointments None recorded. Lab pap, LB 2021 [facility], [address] [place], [address], 11:29:22 unlisted lab - Pap reflex hold 2021 [facility] [place] Jose Guadalupe, [address] [place] [address], [address], 09:52:17 culture, urine 2021 [facility], [address] [place], [address], 01:12:21 Referral None recorded. Procedures None recorded. Surgeries None recorded. Imaging US, transvagina l 2021 0 Not available 21:39:17 Medication Orders None recorded. Patient TargetsNo targets recorded. Patient Instructions Encounter Date Encounter Id Patient Instructions Last Modified By Organization Details Last Modified Time 01/21/2022 [id number] Patient Health Questionnaire-9* [email or web address] Not available 01/31/2022 15:42:59 learning about dietary guidelines Not available 01/21/2022 17:03:48 eating healthy foods: care instructions Not available 01/21/2022 17:03:48 02/11/2022 [id number] flank pain: care instructions Not available 02/11/2022 16:38:00 Reason for Referral None Reported. Results Created Date Observation Date Name Description Value Unit Range Abnormal Flag Note LastModifiedBy Organization Detail LastModifiedTime 02/15/2002/14/2022 CULTU RE, URINE , ROUTI NE culture, urine, routine SEE NOTE CULTU RE, URINE , ROUTI NE Micro Numbe r: [id number] Test Statu s: Final Speci men Sourc e: Not given Speci men Quali ty: Adequ ate Resul t: Mixed genit al himanshu isola juanita. These super ficia l bacte vega are not indic ative of a urina ry tract infec tion. No furth er organ ism ident ifica tion is warra nted on this speci men. If clini keshawn indic ated, recol lect clean -catc h, mid-s tream urine and trans nalini immed iatel y to Urine Cultu re Trans port Tube. NO COLLE CTION DATE RECEI LUIS ANTONIO. WE HAVE USED THE DATE THE SPECI MEN WAS RECEI LUIS ANTONIO BY THIS LABOR ATORY THE COLLE CTION DATE. IF THIS IS INCOR RECT, PLEAS E CONTA CT CLIEN T SERVI ROSELINE. PHONE NUMBE R: [phone] Not Available [facility] [address] [address] [place], [address], 02/14/2022 01:12:21 01/22/2001/22/2022 PAP REFLE X HOLD Pap reflex hold Receiv ed receiv ed Not Available [facility] [address] [place], [address], 01/22/2022 09:52:17 01/22/2001/25/2022 THINP REP TIS PAP clinical information: normal None given Not Available [facility] [address] [place], [address], 01/25/2022 11:29:21 01/22/2001/25/2022 THINP REP TIS PAP LMP: normal NONE GIVEN Not Available [address], [address], 01/25/2022 11:29:21 01/22/20 22 01/25/2022 THINP REP TIS PAP prev. Pap: normal NONE GIVEN Not Available [address], [address], 01/25/2022 11:29:21 01/22/20 22 01/25/2022 THINP REP TIS PAP prev. BX: normal NONE GIVEN Not Available [address], [address], 01/25/2022 11:29:21 01/22/20 22 01/25/2022 THINP REP TIS PAP source: normal Cervi x, Endoc ervix Not Available [address], [address], 01/25/2022 11:29:21 01/22/20 22 01/25/2022 THINP REP TIS PAP statement of adequacy: normal SATIS FACTO RY FOR EVALU ATION Not Available [address], [address], 01/25/2022 11:29:21 01/22/20 22 01/25/2022 THINP REP TIS PAP general categorizati on: abnormal EPITH ELIAL CELL ABNOR MALIT Y Not Available [address], [address], 01/25/2022 11:29:21 01/22/20 22 01/25/2022 THINP REP TIS PAP interpretati on/result: abnormal Atypi deann Squam ous Cells of Undet ermin ed Signi fican ce (ASC- US) Not Available [address], [address], 01/25/2022 11:29:21 01/22/20 22 01/25/2022 THINP REP TIS PAP comment: normal This Pap test has been evalu ated with compu ter leonor juanita techn ology . [facility]ge st clini deann corre latio n and follo w-up as clini keshawn appro priat e Not Available [address] [address] [place], [address], 01/25/2022 11:29:21 01/22/20 22 01/25/2022 THINP REP TIS PAP cytotechnolo gist: normal MEF, CT( CP) CT scree sabino locat ion: [address] [address] [address] [place] [address] Not Available [address] [address] [place], [address], 01/25/2022 11:29:21 01/22/20 22 01/25/2022 THINP REP TIS PAP pathologist: normal Cassy quintana M.D., Board Certi fied in Anato adithya Patho logy and Cytop athol ogy. Phone : [phone] (elec troni c signa ture) Not Available [address] [address] [address], [place], [address], 01/25/2022 11:29:21 01/22/20 22 01/25/2022 THINP REP TIS PAP comment EXPLA NATOR Y NOTE: The Pap is a scree sabino test for cervi deann cance r. It is not a diagn ostic test and is subje ct to false negat zahra and false posit zahra resul ts. It is most relia ble when a satis facto ry sampl e, regul abigail obtai santosh, is submi tted with relev ant clini deann findi ngs and histo ry, and when the Pap resul t is evalu ated along with histo jesus manuel and curre nt clini deann infor matio n. Not Available [address] [address] [place], [address], 01/25/2022 11:29:21 01/22/20 22 01/29/2022 HPV HIGH RISK HPV high risk Negati ve negati ve normal The HPV High Risk assay is inten ded for use as co-te sting with cytol ogy and not as a subst itute for regul ar cervi deann cytol ogy scree sabino. This assay is not inten ded for use as a scree sabino devic e for women under age 30 with cassy l cervi deann cytol ogy. Not Available [place] Jose Guadalupe [address] [place], [address], 01/29/2022 14:46:40 02/13/20 22 02/11/2022 US, trans vagin al No observ ation record ed. [email or web address] [facility] [address], [place], [address], 02/17/2022 17:16:41 Result Notes None recorded. Problems Name Problem SNOMED Code Status Onset Date Resolution Date Notes Provider Name and Address Organization Details Recorded Time Pain in pelvis 77562497 Active 2021 AMANDA Ty [facility] [place], [address], [facility] 17:02:35 Abnormal uterine bleeding 28426810472288 Active 2021 AMANDA Ty [address] [place], [address], [facility] 17:03:34 Flank pain 130456270 Active 2021 AMANDA Ty [address] [place], [address], [facility] 16:37:50 Problem Notes None recorded. Procedures Surgical History Date Name Laterality Status Provider Name and Address Organization Details Recorded Time 01/21/2022 Date of Last Pap Smear completed AMANDA Ty [address] [place], [address], [facility] 02/17/2022 11:32:11 Imaging Results Imaging Date Name Status LastModified by Organization Details LastModified Time 02/11/2022 US, transvaginal completed [email or web address] [facility] [address], [place], [address], 02/17/2022 17:16:41 Procedure Notes None recorded. Medical Equipment None Reported. Allergies Allergen ID Allergen Name Allergen Category Reaction Reaction Severity Criticality Documentation Date Start Date Code Code System Note Provider Name and Address Organization Details Recorded Time [id number] 375423858 6419410t2 2824e latex environme nt,medica tion Not available Not available Not available 01/21/2022 51023 91 RxNorm Not Available Not Available Not Available [id number] 7358606i4 2824e Product containin g penicilli n and antibioti c (product) medicatio n Not available Not available Not available 01/21/2022 85709 05 SNOMED Not Available Not Available Not Available [id number] 174374227 9610155t0 2824e amoxicill in medicatio n Not available Not available Not available 01/21/2022 723 RxNorm Not Available Not Available Not Available [id number] 7374898q0 2824e mold extract environme nt Not available Not available Not available 01/21/2022 16975 8 RxNorm Not Available Not Available Not Available Medications Name Sig Start Date Stop Date Status Note LastModified by Organization Details LastModified Time cyclobenzap rine 10 mg tablet TAKE 1 TABLET BY MOUTH THREE TIMES DAILY NEEDED FOR MUSCLE SPASM 01/21 completed Not Available Not Available Not Available azithromyci n 250 mg tablet TK 2 TS PO ON DAY 1, THEN TK 1 T PO D FOR 4 DAYS . TAKE AFTER A MEAL 01/21 completed Not Available Not Available Not Available hydrocodone 5 mg-acetamin ophen 325 mg tablet TAKE 1 TABLET BY MOUTH EVERY 6 HOURS NEEDED 01/21 completed Not Available Not Available Not Available ondansetron HCl 4 mg tablet TAKE 1 TABLET BY MOUTH EVERY 8 HOURS 01/21 completed Not Available Not Available Not Available prednisone 20 mg tablet TAKE 1 TABLET BY MOUTH ONCE DAILY FOR 5 DAYS 02/11 completed Not Available Not Available Not Available ciprofloxac in 500 mg tablet TAKE 1 TABLET BY MOUTH EVERY 12 HOURS AFTER MEALS FOR 5 DAYS 01/21 completed Not Available Not Available Not Available baclofen 20 mg tablet TAKE 1 TABLET BY MOUTH THREE TIMES DAILY NEEDED active Not Available Not Available No t Available baclofen 10 mg tablet TAKE 1 TABLET BY MOUTH THREE TIMES DAILY NEEDED active Not Available Not Available No t Available montelukast 10 mg tablet TAKE 1 TABLET BY MOUTH EVERY DAY DIRECTED active Not Available Not Available No t Available methylpredn isolone 4 mg tablets in a dose pack FOLLOW PACKAGE DIRECTION S 01/21 completed Not Available Not Available Not Available albuterol sulfate HFA 90 mcg/actuati on aerosol inhaler INHALE 2 PUFFS BY INHALATIO N ROUTE EVERY 4 HOURS NEEDED active Not Available Not Available No t Available naproxen 500 mg tablet TAKE 1 TABLET BY MOUTH TWICE DAILY NEEDED FOR PAIN. 01/21 completed Not Available Not Available Not Available amoxicillin 875 mg-potassiu m clavulanate 125 mg tablet TAKE 1 TABLET BY MOUTH EVERY 12 HOURS FOR 10 DAYS 01/21 completed Not Available Not Available Not Available Dulera 200 mcg-5 mcg/actuati on HFA aerosol inhaler INHALE 2 PUFFS BY MOUTH TWICE DAILY DIRECTED active Not Available Not Available No t Available Vitals Date Recorded Body weight Provider Name an d Address Organization Details Last Updated DateTime 01/21/2022 739259.24 g [facility] 01/21/2022 15:50:22 Date Recorded Body temperature Provider Name a nd Address Organization Details Last Updated DateTime 01/21/2022 98 [degF] [facility] 01/21/2022 15:50:26 Date Recorded Body mass index (BMI) Body height Provider Name and Address Organization Details Last Updated DateTime 01/21/2022 45.5 kg/m2 160.02 cm [facility] 01/21/2022 15:50:47 Date Recorded Body height Provider Name an d Address Organization Details Last Updated DateTime 02/11/2022 160.02 cm [facility] [employer] [facility] 02/11/2022 15:48:05 Date Recorded Body mass index (BMI) Body weight Provider Name and Address Organization Details Last Updated DateTime 02/11/2022 46.2 kg/m2 537565.61 g Justina Navarro [facility] 02/11/2022 15:58:39 Date Recorded Body temperature Provider Name a nd Address Organization Details Last Updated DateTime 02/11/2022 97.6 [degF] Justina [facility] 02/11/2022 15:58:47 Date Recorded Systolic blood pressure Diastolic blood pressure Provider Name and Address Organization Details Last Updated DateTime 01/21/2022 128 mm[Hg] 82 mm[Hg] Justina Navarro [facility] 01/21/2022 15:52:01 Date Recorded Systolic blood pressure Diastolic blood pressure Provider Name and Address Organization Details Last Updated DateTime 02/11/2022 126 mm[Hg] 76 mm[Hg] Justina Navarro [facility] 02/11/2022 15:59:01 Social History Question Answer Notes LastModified by Organizat ion Details LastModified Time Tobacco Smoking Status Never Smoker Justina Navarro [facility] [place] [facility] 01/21/2022 15:45:36 What Is Your Level Of Alcohol Consumption? None Information not available 01/21/2022 Are You Blind Or Do You Have Difficulty Seeing? No Information not available 01/21/2022 Are You Deaf Or Do You Have Serious Difficulty Hearing? No Information not available 01/21/2022 What Type Of Diet Are You Following? REGULAR Information not available 01/21/2022 Do You Or Have You Ever Used E-cigarettes Or Vape? Never Used Electronic Cigarettes Information not available 01/21/2022 What Is Your Relationship Status? Single Information not available 01/21/2022 Are You Sexually Active? No Information not available 01/21/2022 Do You Use Any Illicit Or Recreational Drugs? No Information not available 01/21/2022 Do You Or Have You Ever Used Any Other Forms Of Tobacco Or Nicotine? No Information not available 01/21/2022 Sex: Unknown Functional Status Question Answer Note LastModified by Organization D etails LastModified Time What is your exercise level? Moderate Information not available 01/21/2022 Mental Status None recorded. Family History Relationship Description Onset Age of this Age Resolved Age Notes LastModified by Organization Details LastModified Time Maternal Grandmother Hypercholest erolemia kbritsch Not available 2021 15:45:36 Paternal Grandfather Malignant neoplastic disease kbritsch Not available 2021 15:45:36 Paternal Grandfather Hypertensive disorder kbritsch Not available 2021 15:45:36 Mother Hypertensive disorder kbritsch Not available 2021 15:45:36 Mother Hypercholest erolemia kbritsch Not available 2021 15:45:36 Maternal Grandfather Malignant neoplastic disease kbritsch Not available 2021 15:45:36 Maternal Grandfather Hypertensive disorder kbritsch Not available 2021 15:45:36 Maternal Grandfather Hypercholest erolemia kbritsch Not available 2021 15:45:36 Paternal Grandmother Hypertensive disorder kbritsch Not available 2021 15:45:36 Paternal Grandmother Hypercholest erolemia kbritsch Not available 2021 15:45:36 Medical History Condition Response Gallbladder disease Y Asthma Y Gynecological History Statement/Question Response Flow Light Date of LMP 12/12/2021 HPV Vaccine N Date of Last Pap Smear 01/21/2022 Duration of Flow (days) 7 Current Control Method None Age at Menarche 15 Obstetrics History GPAL:G 0 P 0 0 0 0 Past Encounters Encounter ID Performer Location Encounter Start Date Encounter Closed Date Diagnosis/Indication Diagnosis SNOMED-CT Code Diagnosis ICD10 Code Diagnosis Note [id number] AMANDA Ty [facility] [address] [place] [address] 01/21/2022 15:33:03 01/22/2022 09:24:22 Gynecologic examination 40830424 Z01.419 WWE completedP ap - obtainedST I screening - declinesCB E nmlTobacco , alcohol, drug use- denies; encouraged to avoidDepre ssion screen- negativeBi rth control- declines control. Screening for malignant neoplasm of cervix 619538228 Z12.4 Cervical cancer screening is used to find abnormal changes in the cells of the cervix that could lead to cancer. Screening includes the Pap test and, for some women, testing for a virus called human papillomav irus (HPV). The main cause of cervical cancer is infection with HPV. Depression screening 171 146979 Z13.31 Pain in pelvis 07543170 R10.2 Patient case to submit PA for US- schedule appt Abnormal u terine bleeding 5723288232 9100 N93.9 Discussed tx options for irregular bleeding. Declines control. Explained Lysteda. Will try NSAIDs OTC (Motrin) for now. [id number] AMANDA Ty [facility] [address] [place] [address] 02/11/2022 14:55:40 02/11/2022 16:49:54 Abnormal uterine bleeding 8657954821 9100 N93.9 US shows neo. enlarged ovaries and multiple follicles around the right ovary.Disc ussed US findings and h/o irregular periods are c/w PCOS.Recom mend contracept ion to regulate. Bonnie agrees. Samples of Nextellis given. ACHES reviewed.D iscussed PCOS and treatement options- dx, etiology, and prognosis including increased risk of metabolic syndrom and TIIDM. Recommend lifestyle changes and starting THANG as first steps. Discussed benefits of weight loss in restoring ovulation, as well as reducing many other health risks. Diet and exercise counseling done.Revie wed alternativ e and secondary tx options including spironolac tone and metformin. Briefly reviewed risk of infertilit y with anovulatio n and potential for ovulation induction in the future as needed.RTC in 10 weeks Flank pain 904249143 R10 .9 Health Concerns Section Related Observation LastModified by Organization Detai ls LastModified Time None Recorded Concern Status LastModified by Organization Details LastModified Time None Recorded Advance Directives Directive None Recorded Payers Encounter Date Sequence Insurance Name Policy Number Policy Hdez Covered Member ID Hdez Member ID Guarantor Name 01/21/2022 1 [place] Bonnie Davila [id number] Bonnie Davila 02/11/2022 1 [place] Bonnie Davila [id number] Bonnie Davila Notes Date Note Type Note Provider Name and Address Organization Details Recorded Time 01/21/2022 text/html Annual GYNReport ed bypatient.Menstrua l cycle:Irregular cycle intervals Urinary symptoms:No hematuria; No incontinence Vulva:No genital lesion Vagina:Normal vaginal discharge Breast:No breast pain; No breast lump; No nipple discharge Sexual complaints:No sexual complaints; No pain during intercourse; Normal libido Menopausal Symptoms:No menopausal symptoms; Normal vaginal lubrication Psychological symptoms:No depression; No anxiety; No PMDDPelvic PainReported bypatient.Location :right; lower back Onset/Timin-2 months Duration:pain is worse while bleeding Quality:cramping; pressure Severity:moderate Context:LMP (12/12/2021) Alleviating Factors:none Aggravating Factors:none Associated Symptoms:no chills; no constipation; no diarrhea; no vaginal discharge; no pain with urination; normal emptying of bladder; no feelings of urgency; no blood in the urine; normal libido; no fever; no nausea; no vomiting; no nocturia; no sexual abuse; no ectopic pregnancies; no endometriosis; no urinary frequency; no vaginal itching or irritation; no dyspareunia;abdomi nal pain;back pain Bonnie presents for an annual exam wit pap. She reports irregular periods.Bleeding since 12/12/21. Recent CT scan at ER for c/o pelvic and nml. AMANDA Ty [facility] [place], [address], [facility] 01/27/2022 12:19:14 02/11/2022 text/html Pelvic PainReported bypatient.Location :right; lower back Onset/Timin-2 months Duration:pain is worse while bleeding Quality:cramping; pressure Severity:moderate Context:LMP (12/12/2021) Alleviating Factors:none Aggravating Factors:none Associated Symptoms:no chills; no constipation; no diarrhea; no vaginal discharge; no pain with urination; normal emptying of bladder; no feelings of urgency; no blood in the urine; normal libido; no fever; no nausea; no vomiting; no nocturia; no sexual abuse; no ectopic pregnancies; no endometriosis; no urinary frequency; no vaginal itching or irritation; no dyspareunia;abdomi nal pain;back pain Bonnie presents for a f/u visit with US today.Reports bleeding since 12/12/21 and h/o irregular periods. Recent CT scan at ER for c/o pelvic pain and nml. Reports right flank pain- states it has improved slightly. AMANDA Ty [address] [facility], [place], [address], [facility] 02/17/2022 11:48:31 OBGyn Episode No OBEpisode recorded.
--- OUTSIDE RECORDS SUMMARY | 2024-05-17 13:24 | XMS_ITS | Data Portability ---
Author Organization [place] [employer], Main Office Address [address] [place] [address] Assessment Encounter Date Assessment Date Assessment LastModified by Organization Details LastModified Time 07/18/2022 07/18/2022 status post robotic assisted cholecystectomy for cholelithiasis and right upper quadrant pain. Doing very well. Follow-up p.r.nClaudia gallegos 1 Not available 07/18/2022 12:17:24 Plan of Treatment Reminders Order Date Submit Date Provider Last Modified By Organization Details Last Modified Time Details Appointments None record ed. Lab None record ed. Referral None record ed. Procedures None record ed. Surgeries None record ed. Imaging None record ed. Medication Orders None record ed. Patient TargetsNo targets recorded. Patient InstructionsNo instructions recorded. Reason for Referral None Reported. Results Created Date Observation Date Name Description Value Unit Range Abnormal Flag Note LastModifiedBy Organization Detail LastModifiedTime 01/05/2001/04/2022 COMPR EHENS JOSÉ LUIS METAB OLIC PANEL sodium 139 mmol/ L 137-14 5 Not Available [facility] (Lab) [address] [place], [address], 01/04/2022 18:12:20 01/05/20 22 01/04/2022 COMPR EHENS JOSÉ LUIS METAB OLIC PANEL potassium 4.7 mmol/ L 3.5-5. 1 Not Available [facility] (Lab) [address] [place], [address], 01/04/2022 18:12:20 01/05/20 22 01/04/2022 COMPR EHENS JOSÉ LUIS METAB OLIC PANEL chloride 101 mmol/ L 98-107 Not Available [facility] (Lab) [address] [place], [address], 01/04/2022 18:12:20 01/05/20 22 01/04/2022 COMPR EHENS JOSÉ LUIS METAB OLIC PANEL carbon dioxide 26 mmol/ L 22-30 Not Available [facility] (Lab) [address] [place], [address], 01/04/2022 18:12:20 01/05/20 22 01/04/2022 COMPR EHENS JOSÉ LUIS METAB OLIC PANEL anion gap 16.7 mmol/ L 14-22 Not Available [facility] (Lab) [address] [place], [address], 01/04/2022 18:12:20 01/05/20 22 01/04/2022 COMPR EHENS JOSÉ LUIS METAB OLIC PANEL glucose 91 mg/dL 70-99 Not Available [facility] (Lab) [address] [place], [address], 01/04/2022 18:12:20 01/05/20 22 01/04/2022 COMPR EHENS JOSÉ LUIS METAB OLIC PANEL BUN 11 mg/dL 8-19 Not Available [facility] (Lab) [address] [place], [address], 01/04/2022 18:12:20 01/05/20 22 01/04/2022 COMPR EHENS JOSÉ LUIS METAB OLIC PANEL creatinine 0.73 mg/dL 0.66-1 .25 Not Available [facility] (Lab) [address] [place], [address], 01/04/2022 18:12:20 01/05/20 22 01/04/2022 COMPR EHENS JOSÉ LUIS METAB OLIC PANEL GFR >60 Refer ence Range : [place] ge GFR Healt hy Adult : >60 mL/mi n/1.7 3 m2 Chron ic Kidne y Disea se: 15-60 mL/mi n/1.7 3 m2 Kidne y Failu re: <15/m L/min /1.73 m2 www.n iddk. nih.g ov The MDRD study equat ion has not been valid ated in child dereje <18 years of age; pregn ant women ; the elder ly >85 years of age; or in some racia l or ethni c subgr oups, such as Hispa nics. Outsi de the valid ated steffi eters , estim ated GFR is less accur ate, requi ring clini deann judgm ent on a case- by-ca se basis . Clini deann inter preta tion for other races and ages must be made by the clini nate. The MDRD study equat ion has not been valid ated for the evalu ation of serum creat inine relat ed to nutri kyle l statu s or medic ation usage . For perso ns <18 years of age, a pedia tric GFR calcu lator is avail able on the [facility] websi te: https ://shorty pena.charli jara.o rg/pr ofess ional s/kdo qi/gf r_cal culat or Not Available [facility] (Lab) [address] [place], [address], 01/04/2022 18:12:20 01/05/20 22 01/04/2022 COMPR EHENS JOSÉ LUIS METAB OLIC PANEL alkaline phosphatase 83 U/L 38-126 Not Available [facility] (Lab) [address] [place], [address], 01/04/2022 18:12:20 01/05/20 22 01/04/2022 COMPR EHENS JOSÉ LUIS METAB OLIC PANEL alanine aminotransfe rase 21 U/L 0-35 Not Available [facility] (Lab) [address] [place], [address], 01/04/2022 18:12:20 01/05/20 22 01/04/2022 COMPR EHENS JOSÉ LUIS METAB OLIC PANEL aspartate aminotransfe rase 27 U/L 15-37 Not Available [facility] (Lab) [address] [place], [address], 01/04/2022 18:12:20 01/05/20 22 01/04/2022 COMPR EHENS JOSÉ LUIS METAB OLIC PANEL bilirubin, total 1.20 mg/dL 0.20-1 .30 Not Available [facility] (Lab) [address] [place], [address], 01/04/2022 18:12:20 01/05/20 22 01/04/2022 COMPR EHENS JOSÉ LUIS METAB OLIC PANEL calcium 10.0 mg/dL 8.4-10 .2 Not Available [facility] (Lab) [address] [place], [address], 01/04/2022 18:12:20 01/05/20 22 01/04/2022 COMPR EHENS JOSÉ LUIS METAB OLIC PANEL total protein 7.8 g/dL 6.3-8. 2 Not Available [facility] (Lab) [address] [place], [address], 01/04/2022 18:12:20 01/05/20 22 01/04/2022 COMPR EHENS JOSÉ LUIS METAB OLIC PANEL albumin 4.9 g/dL 3.4-5. 0 Not Available [facility] (Lab) [address] [place], [address], 01/04/2022 18:12:20 01/05/20 22 01/04/2022 COMPR EHENS JOSÉ LUIS METAB OLIC PANEL globulin 2.9 g/dL 2.6-4. 2 Not Available [facility] (Lab) [address] [place], [address], 01/04/2022 18:12:20 01/05/20 22 01/04/2022 COMPR EHENS JOSÉ LUIS METAB OLIC PANEL A/G ratio 1.7 ratio 1.0-2. 0 Not Available [facility] (Lab) [address] [place], [address], 01/04/2022 18:12:20 01/05/20 22 01/04/2022 SARS- COV-2 RNA(C OVID1 9),RT -PCR sars-cov-2 RNA(covid19) ,RT-PCR negati ve This test has been autho rized by the FDA under an Emerg ency Use Autho rizat ion (EUA) for use by autho rized labor atori es. Negat josé luis resul ts do not precl ude SARS- CoV-2 and shoul d not be used as the sole basis for treat ment or other patie nt manag ement decis ions. Test resul ts shoul d be corre lated with the clini deann histo ry, epide miolo gical data, and other data avail able to the clini nate evalu ating the patie nt. Tereza diaz w the Fact Sheet s for healt h care provi ders and patie nts at the [facility] sebas: https ://[employer].setObject .gov/ media /1363 12/do wnloa d https ://[employer].fda .gov/ media /1363 13/do wnloa d https ://[employer].fda .gov/ media /1421 92/do wnloa d https ://[employer].fda .gov/ media /1421 91/do wnloa d Cjo jose e y: Real- Time RT-PC R Not Available [facility] (Lab) [address] [place], [address], 01/04/2022 16:29:57 01/05/20 22 01/04/2022 CBC/C OMPLE TE BLD COUNT W/DIF F white blood cells 7.1 x10'3 /uL 4.2-10 .8 Not Available [facility] (Lab) [address] [place], [address], 01/04/2022 15:30:54 01/05/20 22 01/04/2022 CBC/C OMPLE TE BLD COUNT W/DIF F red blood cells 5.04 x10'6 /uL 3.80-5 .20 Not Available [facility] (Lab) [address] [place], [address], 01/04/2022 15:30:54 01/05/20 22 01/04/2022 CBC/C OMPLE TE BLD COUNT W/DIF F hemoglobin 14.4 g/dL 12.0-1 5.6 Not Available [facility] (Lab) [address] [place], [address], 01/04/2022 15:30:54 01/05/20 22 01/04/2022 CBC/C OMPLE TE BLD COUNT W/DIF F hematocrit 44.4 % 35.7-4 5.7 Not Available [facility] (Lab) [address] [place], [address], 01/04/2022 15:30:54 01/05/20 22 01/04/2022 CBC/C OMPLE TE BLD COUNT W/DIF F mean red cell volume 88.1 fL 82.0-9 9.0 Not Available [facility] (Lab) [address] [place], [address], 01/04/2022 15:30:54 01/05/20 22 01/04/2022 CBC/C OMPLE TE BLD COUNT W/DIF F mean red cell hemoglobin 28.6 pg 27.0-3 3.0 Not Available [facility] (Lab) [address] [place], [address], 01/04/2022 15:30:54 01/05/20 22 01/04/2022 CBC/C OMPLE TE BLD COUNT W/DIF F mean RBC HGB concentratio n 32.4 g/dL 31.0-3 6.0 Not Available [facility] (Lab) [address] [place], [address], 01/04/2022 15:30:54 01/05/20 22 01/04/2022 CBC/C OMPLE TE BLD COUNT W/DIF F red cell distribution width 11.8 % 11.8-1 5.5 Not Available [facility] (Lab) [address] [place], [address], 01/04/2022 15:30:54 01/05/20 22 01/04/2022 CBC/C OMPLE TE BLD COUNT W/DIF F platelets 293 x10'3 /uL 150-40 0 Not Available [facility] (Lab) [address] [place], [address], 01/04/2022 15:30:54 01/05/20 22 01/04/2022 CBC/C OMPLE TE BLD COUNT W/DIF F mean platelet volume 10.0 fL 9.0-12 .4 Not Available [facility] (Lab) [address] [place], [address], 01/04/2022 15:30:54 01/05/20 22 01/04/2022 CBC/C OMPLE TE BLD COUNT W/DIF F neutrophils 56.5 % 39.0-7 2.0 Not Available [facility] (Lab) [address] [place], [address], 01/04/2022 15:30:54 01/05/20 22 01/04/2022 CBC/C OMPLE TE BLD COUNT W/DIF F lymphocytes 34.3 % 16.0-4 7.0 Not Available [facility] (Lab) [address] [place], [address], 01/04/2022 15:30:54 01/05/20 22 01/04/2022 CBC/C OMPLE TE BLD COUNT W/DIF F monocytes 6.8 % 5.0-12 .0 Not Available [facility] (Lab) [address] [place], [address], 01/04/2022 15:30:54 01/05/20 22 01/04/2022 CBC/C OMPLE TE BLD COUNT W/DIF F eosinophils 1.8 % 1.0-7. 0 Not Available [facility] (Lab) [address] [place], [address], 01/04/2022 15:30:54 01/05/20 22 01/04/2022 CBC/C OMPLE TE BLD COUNT W/DIF F basophils 0.3 % 0.0-2. 0 Not Available [facility] (Lab) [address] [facility] [place], [address], 01/04/2022 15:30:54 01/05/20 22 01/04/2022 CBC/C OMPLE TE BLD COUNT W/DIF F immature granulocytes 0.3 % 0.00-0 .50 Not Available [facility] (Lab) [address] [place], [address], 01/04/2022 15:30:54 01/05/20 22 01/04/2022 CBC/C OMPLE TE BLD COUNT W/DIF F neutrophils, absolute count 4.01 x10'3 /uL 1.5-8. 0 Not Available [facility] (Lab) [address] [place], [address], 01/04/2022 15:30:54 01/05/20 22 01/04/2022 CBC/C OMPLE TE BLD COUNT W/DIF F lymphocytes, absolute count 2.43 x10'3 /uL 1.07-3 .43 Not Available [facility] (Lab) [address] [place], [address], 01/04/2022 15:30:54 01/05/20 22 01/04/2022 CBC/C OMPLE TE BLD COUNT W/DIF F monocytes, absolute count 0.48 x10'3 /uL 0.29-0 .99 Not Available [facility] (Lab) [address] [place], [address], 01/04/2022 15:30:54 01/05/20 22 01/04/2022 CBC/C OMPLE TE BLD COUNT W/DIF F eosinophils, absolute count 0.13 x10'3 /uL 0.02-0 .53 Not Available [facility] (Lab) [address] [place], [address], 01/04/2022 15:30:54 01/05/20 22 01/04/2022 CBC/C OMPLE TE BLD COUNT W/DIF F basophils, absolute count 0.02 x10'3 /uL 0.01-0 .08 Not Available [facility] (Lab) [address] [place], [address], 01/04/2022 15:30:54 01/05/20 22 01/04/2022 CBC/C OMPLE TE BLD COUNT W/DIF F immature granulocytes ,absolute 0.02 x10'3 /uL 0.00-0 .05 Not Available [facility] (Lab) [address] [place], [address], 01/04/2022 15:30:54 01/05/20 22 01/04/2022 CBC/C OMPLE TE BLD COUNT W/DIF F nucleated red blood cells 0.0 % -0 Not Available [facility] (Lab) [address] [place], [address], 01/04/2022 15:30:54 01/05/20 22 01/04/2022 CBC/C OMPLE TE BLD COUNT W/DIF F NRBC# 0.00 x10'3 /uL Not Available [facility] (Lab) [address] [place], [address], 01/04/2022 15:30:54 07/05/19 23 07/04/2022 CBC/C OMPLE TE BLD COUNT W/DIF F white blood cells 8.9 x10'3 /uL 4.2-10 .8 Not Available [facility] (Lab) [address] [place], [address], 07/04/2022 12:34:43 07/05/19 23 07/04/2022 CBC/C OMPLE TE BLD COUNT W/DIF F red blood cells 4.82 x10'6 /uL 3.80-5 .20 Not Available [facility] (Lab) [address] [place], [address], 07/04/2022 12:34:43 07/05/19 23 07/04/2022 CBC/C OMPLE TE BLD COUNT W/DIF F hemoglobin 13.6 g/dL 12.0-1 5.6 Not Available [facility] (Lab) [address] [place], [address], 07/04/2022 12:34:43 07/05/19 23 07/04/2022 CBC/C OMPLE TE BLD COUNT W/DIF F hematocrit 42.8 % 35.7-4 5.7 Not Available [facility] (Lab) [address] [place], [address], 07/04/2022 12:34:43 07/05/19 23 07/04/2022 CBC/C OMPLE TE BLD COUNT W/DIF F mean red cell volume 88.8 fL 82.0-9 9.0 Not Available [facility] (Lab) [address] [place], [address], 07/04/2022 12:34:43 07/05/19 23 07/04/2022 CBC/C OMPLE TE BLD COUNT W/DIF F mean red cell hemoglobin 28.2 pg 27.0-3 3.0 Not Available [facility] (Lab) [address] [place], [address], 07/04/2022 12:34:43 07/05/19 23 07/04/2022 CBC/C OMPLE TE BLD COUNT W/DIF F mean RBC HGB concentratio n 31.8 g/dL 31.0-3 6.0 Not Available [facility] (Lab) [address] [place], [address], 07/04/2022 12:34:43 07/05/19 23 07/04/2022 CBC/C OMPLE TE BLD COUNT W/DIF F red cell distribution width 12.0 % 11.8-1 5.5 Not Available [facility] (Lab) [address] [place], [address], 07/04/2022 12:34:43 07/05/19 23 07/04/2022 CBC/C OMPLE TE BLD COUNT W/DIF F platelets 310 x10'3 /uL 150-40 0 Not Available [facility] (Lab) [address] [place], [address], 07/04/2022 12:34:43 07/05/19 23 07/04/2022 CBC/C OMPLE TE BLD COUNT W/DIF F mean platelet volume 9.8 fL 9.0-12 .4 Not Available [facility] (Lab) [address] [place], [address], 07/04/2022 12:34:43 07/05/19 23 07/04/2022 CBC/C OMPLE TE BLD COUNT W/DIF F neutrophils 55.1 % 39.0-7 2.0 Not Available [facility] (Lab) [address] [place], [address], 07/04/2022 12:34:43 07/05/19 23 07/04/2022 CBC/C OMPLE TE BLD COUNT W/DIF F lymphocytes 35.9 % 16.0-4 7.0 Not Available [facility] (Lab) [address] [place], [address], 07/04/2022 12:34:43 07/05/19 23 07/04/2022 CBC/C OMPLE TE BLD COUNT W/DIF F monocytes 6.6 % 5.0-12 .0 Not Available [facility] (Lab) [address] [place], [address], 07/04/2022 12:34:43 07/05/19 23 07/04/2022 CBC/C OMPLE TE BLD COUNT W/DIF F eosinophils 2.0 % 1.0-7. 0 Not Available [facility] (Lab) [address] [place], [address], 07/04/2022 12:34:43 07/05/19 23 07/04/2022 CBC/C OMPLE TE BLD COUNT W/DIF F basophils 0.2 % 0.0-2. 0 Not Available [facility] (Lab) [address] [place], [address], 07/04/2022 12:34:43 07/05/19 23 07/04/2022 CBC/C OMPLE TE BLD COUNT W/DIF F immature granulocytes 0.2 % 0.00-0 .50 Not Available [facility] (Lab) [address] [place], [address], 07/04/2022 12:34:43 07/05/19 23 07/04/2022 CBC/C OMPLE TE BLD COUNT W/DIF F neutrophils, absolute count 4.89 x10'3 /uL 1.5-8. 0 Not Available [facility] (Lab) [address] [place], [address], 07/04/2022 12:34:43 07/05/19 23 07/04/2022 CBC/C OMPLE TE BLD COUNT W/DIF F lymphocytes, absolute count 3.19 x10'3 /uL 1.07-3 .43 Not Available [facility] (Lab) [address] [place], [address], 07/04/2022 12:34:43 07/05/19 23 07/04/2022 CBC/C OMPLE TE BLD COUNT W/DIF F monocytes, absolute count 0.59 x10'3 /uL 0.29-0 .99 Not Available [facility] (Lab) [address] [place], [address], 07/04/2022 12:34:43 07/05/19 23 07/04/2022 CBC/C OMPLE TE BLD COUNT W/DIF F eosinophils, absolute count 0.18 x10'3 /uL 0.02-0 .53 Not Available [facility] (Lab) [address] [place], [address], 07/04/2022 12:34:43 07/05/19 23 07/04/2022 CBC/C OMPLE TE BLD COUNT W/DIF F basophils, absolute count 0.02 x10'3 /uL 0.01-0 .08 Not Available [facility] (Lab) [address] [place], [address], 07/04/2022 12:34:43 07/05/19 23 07/04/2022 CBC/C OMPLE TE BLD COUNT W/DIF F immature granulocytes ,absolute 0.02 x10'3 /uL 0.00-0 .05 Not Available [facility] (Lab) [address] [place], [address], 07/04/2022 12:34:43 07/05/19 23 07/04/2022 CBC/C OMPLE TE BLD COUNT W/DIF F nucleated red blood cells 0.0 % -0 Not Available [facility] (Lab) [address] [place], [address], 07/04/2022 12:34:43 07/05/19 23 07/04/2022 CBC/C OMPLE TE BLD COUNT W/DIF F NRBC# 0.00 x10'3 /uL Not Available [facility] (Lab) [address] [place], [address], 07/04/2022 12:34:43 07/05/19 23 07/04/2022 COMPR EHENS JOSÉ LUIS METAB OLIC PANEL sodium 139 mmol/ L 137-14 5 Not Available [facility] (Lab) [address] [place], [address], 07/04/2022 12:47:17 07/05/19 23 07/04/2022 COMPR EHENS JOSÉ LUIS METAB OLIC PANEL potassium 4.2 mmol/ L 3.5-5. 1 Not Available [facility] (Lab) [address] [place], [address], 07/04/2022 12:47:17 07/05/19 23 07/04/2022 COMPR EHENS JOSÉ LUIS METAB OLIC PANEL chloride 103 mmol/ L 98-107 Not Available [facility] (Lab) [address] [place], [address], 07/04/2022 12:47:17 07/05/19 23 07/04/2022 COMPR EHENS JOSÉ LUIS METAB OLIC PANEL carbon dioxide 27 mmol/ L 22-30 Not Available [facility] (Lab) [address] [place], [address], 07/04/2022 12:47:17 07/05/19 23 07/04/2022 COMPR EHENS JOSÉ LUIS METAB OLIC PANEL anion gap 13.2 mmol/ L 14-22 low Not Available [facility] (Lab) [address] [place], [address], 07/04/2022 12:47:17 07/05/19 23 07/04/2022 COMPR EHENS JOSÉ LUIS METAB OLIC PANEL glucose 99 mg/dL 70-99 Not Available [facility] (Lab) [address] [place], [address], 07/04/2022 12:47:17 07/05/19 23 07/04/2022 COMPR EHENS JOSÉ LUIS METAB OLIC PANEL BUN 13 mg/dL 8-19 Not Available [facility] (Lab) [address] [place], [address], 07/04/2022 12:47:17 07/05/19 23 07/04/2022 COMPR EHENS JOSÉ LUIS METAB OLIC PANEL creatinine 0.76 mg/dL 0.66-1 .25 Not Available [facility] (Lab) [address] [place], [address], 07/04/2022 12:47:17 07/05/19 23 07/04/2022 COMPR EHENS JOSÉ LUIS METAB OLIC PANEL GFR >60 Refer ence Range : [place] ge GFR Healt hy Adult : >60 mL/mi n/1.7 3 m2 Chron ic Kidne y Disea se: 15-60 mL/mi n/1.7 3 m2 Kidne y Failu re: <15/m L/min /1.73 m2 www.n iddk. nih.g ov The MDRD study equat ion has not been valid ated in child dereje <18 years of age; pregn ant women ; the elder ly >85 years of age; or in some racia l or ethni c subgr oups, such as Hispa nics. Outsi de the valid ated steffi eters , estim ated GFR is less accur ate, requi ring clini deann judgm ent on a case- by-ca se basis . Clini deann inter preta tion for other races and ages must be made by the clini nate. The MDRD study equat ion has not been valid ated for the evalu ation of serum creat inine relat ed to nutri kyle l statu s or medic ation usage . For perso ns <18 years of age, a pedia tric GFR calcu lator is avail able on the [facility] websi te: https ://shorty w.charli jara.o rg/pr latishaess ional s/kdo qi/gf r_cal culat or Not Available [facility] (Lab) [address] [place], [address], 07/04/2022 12:47:17 07/05/1907/04/2022 COMPR EHENS JOSÉ LUIS METAB OLIC PANEL alkaline phosphatase 89 U/L 38-126 Not Available [facility] (Lab) [address] [place], [address], 07/04/2022 12:47:17 07/05/19 23 07/04/2022 COMPR EHENS JOSÉ LUIS METAB OLIC PANEL alanine aminotransfe rase 47 U/L 0-35 high Not Available [facility] (Lab) [address] [place], [address], 07/04/2022 12:47:17 07/05/19 23 07/04/2022 COMPR EHENS JOSÉ LUIS METAB OLIC PANEL aspartate aminotransfe rase 34 U/L 15-37 Not Available [facility] (Lab) [address] [place], [address], 07/04/2022 12:47:17 07/05/19 23 07/04/2022 COMPR EHENS JOSÉ LUIS METAB OLIC PANEL bilirubin, total 1.00 mg/dL 0.20-1 .30 Not Available [facility] (Lab) [address] [place], [address], 07/04/2022 12:47:17 07/05/19 23 07/04/2022 COMPR EHENS JOSÉ LUIS METAB OLIC PANEL calcium 9.3 mg/dL 8.4-10 .2 Not Available [facility] (Lab) [address] [place], [address], 07/04/2022 12:47:17 07/05/19 23 07/04/2022 COMPR EHENS JOSÉ LUIS METAB OLIC PANEL total protein 7.8 g/dL 6.3-8. 2 Not Available [facility] (Lab) [address] [place], [address], 07/04/2022 12:47:17 07/05/19 23 07/04/2022 COMPR EHENS JOSÉ LUIS METAB OLIC PANEL albumin 4.5 g/dL 3.4-5. 0 Not Available [facility] (Lab) [address] [place], [address], 07/04/2022 12:47:17 07/05/19 23 07/04/2022 COMPR EHENS JOSÉ LUIS METAB OLIC PANEL globulin 3.3 g/dL 2.6-4. 2 Not Available [facility] (Lab) [address] [place], [address], 07/04/2022 12:47:17 07/05/19 23 07/04/2022 COMPR EHENS JOSÉ LUIS METAB OLIC PANEL A/G ratio 1.4 ratio 1.0-2. 0 Not Available [facility] (Lab) [address] [place], [address], 07/04/2022 12:47:17 07/09/19 23 07/08/2022 URINE HCG QUAL/ POINT OF CARE ur preg NEGATI VE TESTI NG PERFO RMED BY SURGI DEANN SERVI ROSELINE PERSO NNEL. Not Available [facility] (Lab) [address] [place], [address], 07/08/2022 14:52:42 07/09/19 23 07/08/2022 URINE HCG QUAL/ POINT OF CARE lot no. [id number] Not Available [facility] (Lab) [address] [place], [address], 07/08/2022 14:52:42 07/09/19 23 07/08/2022 URINE HCG QUAL/ POINT OF CARE pos QC POSITI VE Not Available [facility] (Lab) [address] [place], [address], 07/08/2022 14:52:42 07/09/19 23 07/08/2022 URINE HCG QUAL/ POINT OF CARE neg QC NEGATI VE Not Available [facility] (Lab) [address] [place], [address], 07/08/2022 14:52:42 11/30/19 22 11/22/2021 US, abdom en, limit ed No observ ation record ed. [id number] Not Available 06/19/2022 21:49:06 11/30/19 22 11/23/2021 CT, abdom en + pelvi s, w/ contr ast No observ ation record ed. [id number] Not Available 06/19/2022 21:49:06 Result Notes None recorded. Procedures Surgical History None recorded. Imaging Results Imaging Date Name Status LastModified by Organiz ation Details LastModified Time 11/22/2021 US, abdomen, limited completed [id number] Information not available 06/19/2022 21:49:06 11/23/2021 CT, abdomen + pelvis, w/ contrast completed [id number] Information not available 06/19/2022 21:49:06 Procedure Notes None recorded. Medical Equipment None Reported. Allergies Allergen ID Allergen Name Allergen Category Reaction Reaction Severity Criticality Documentation Date Start Date Code Code System Note Provider Name and Address Organization Details Recorded Time 14448 amoxicill in medicatio n rash severe Not available 06/19/2022 723 RxNorm Not Available [facility] 21:49:02 Medications Name Sig Start Date Stop Date Status Note LastModified by Organization Details LastModified Time cyclobenzap rine 10 mg tablet TAKE 1 TABLET BY MOUTH THREE TIMES DAILY NEEDED FOR MUSCLE SPASM 06/06 completed Not Available Not Available Not Available azithromyci n 250 mg tablet TK 2 TS PO ON DAY 1, THEN TK 1 T PO D FOR 4 DAYS active Not Available Not Available No t Available hydrocodone 5 mg-acetamin ophen 325 mg tablet TAKE 1 TABLET BY MOUTH EVERY 6 HOURS NEEDED 06/06 completed Not Available Not Available Not Available ondansetron HCl 4 mg tablet TAKE 1 TABLET BY MOUTH EVERY 8 HOURS 06/06 completed Not Available Not Available Not Available prednisone 20 mg tablet TAKE 1 TABLET BY MOUTH ONCE DAILY FOR 5 DAYS 06/06 completed Not Available Not Available Not Available cyanocobala min (vit B-12) 1,000 mcg tablet TAKE 1 TABLET BY MOUTH EVERY DAY BEFORE MEALS active Not Available Not Available No t Available ciprofloxac in 500 mg tablet TAKE 1 TABLET BY MOUTH EVERY 12 HOURS AFTER MEALS FOR 5 DAYS 06/06 completed Not Available Not Available Not Available baclofen 20 mg tablet TAKE 1 TABLET BY MOUTH THREE TIMES DAILY NEEDED 06/06 completed Not Available Not Available Not Available oxycodone-a cetaminophe n 5 mg-325 mg tablet TAKE 1 TABLET BY MOUTH EVERY 4 TO 6 HOURS NEEDED active Not Available Not Available No t Available baclofen 10 mg tablet TAKE 1 TABLET BY MOUTH THREE TIMES DAILY NEEDED active Not Available Not Available No t Available montelukast 10 mg tablet TAKE 1 TABLET BY MOUTH EVERY DAY DIRECTED 06/06 completed Not Available Not Available Not Available methylpredn isolone 4 mg tablets in a dose pack FOLLOW PACKAGE DIRECTION S 06/06 completed Not Available Not Available Not Available albuterol sulfate HFA 90 mcg/actuati on aerosol inhaler INHALE 2 PUFFS BY INHALATIO N ROUTE EVERY 4 HOURS NEEDED active Not Available Not Available No t Available naproxen 500 mg tablet TAKE 1 TABLET BY MOUTH TWICE DAILY NEEDED FOR PAIN. 06/06 completed Not Available Not Available Not Available amoxicillin 875 mg-potassiu m clavulanate 125 mg tablet TAKE 1 TABLET BY MOUTH EVERY 12 HOURS FOR 10 DAYS 06/06 completed Not Available Not Available Not Available cholecalcif radhika (vitamin D3) 1,250 mcg (50,000 unit) capsule active Not Available Not Available Not Available Dulera 200 mcg-5 mcg/actuati on HFA aerosol inhaler INHALE 2 PUFFS BY MOUTH TWICE DAILY DIRECTED 06/06 completed Not Available Not Available Not Available guaifenesin ER 600 mg tablet, extended release 12 hr TAKE 1 TABLET BY MOUTH EVERY 12 HOURS FOR 7 DAYS DIRECTED active Not Available Not Available No t Available Vitals Date Recorded Body mass index (BMI) Body height Oxygen saturation Oxygen saturation in Arterial blood by Pulse oximetry Heart rate Respiratory rate Body temperature Body weight Systolic blood pressure Diastolic blood pressure Provider Name and Address Organization Details Last Updated DateTime 2 45 kg/m2 160.02 cm 98 % 98 % 69 /min 14 /min 97.8 [degF] 653856. 46 g 110 mm[Hg] 70 mm[Hg] Not Available [facility] 3 21:47:56 Date Recorded Body mass index (BMI) Body height Oxygen saturation Oxygen saturation in Arterial blood by Pulse oximetry Heart rate Respiratory rate Body temperature Body weight Systolic blood pressure Diastolic blood pressure Provider Name and Address Organization Details Last Updated DateTime 2 45 kg/m2 160.02 cm 98 % 98 % 77 /min 14 /min 97.8 [degF] 537151. 46 g 110 mm[Hg] 70 mm[Hg] Not Available [facility] 3 21:47:56 Date Recorded Body mass index (BMI) Body height Oxygen saturation Oxygen saturation in Arterial blood by Pulse oximetry Heart rate Respiratory rate Body temperature Body weight Systolic blood pressure Diastolic blood pressure Provider Name and Address Organization Details Last Updated DateTime 3 45 kg/m2 160.02 cm 98 % 98 % 76 /min 14 /min 98.6 [degF] 837585. 46 g 110 mm[Hg] 72 mm[Hg] Not Available [facility] 3 21:47:56 Date Recorded Body height Body mass index (BMI) Body weight Body temperature Heart rate Respiratory rate Oxygen saturation Oxygen saturation in Arterial blood by Pulse oximetry Systolic blood pressure Diastolic blood pressure Provider Name and Address Organization Details Last Updated DateTime 3 160.02 cm 45 kg/m2 418771. 46 g 98.6 [degF] 88 /min 14 /min 98 % 98 % 120 mm[Hg] 80 mm[Hg] Carolina YO - [facility] [place] [facility] 3 12:06:29 Social History Question Answer Notes LastModified by Etaphaseizat ion Details LastModified Time Tobacco Smoking Status Never Smoker Not Available [facility] 06/19/2022 21:47:41 What Is Your Level Of Alcohol Consumption? None [id number] Information not available 06/19/2022 What Is Your Level Of Caffeine Consumption? Occasional [id number] Information not available 06/19/2022 In The 14 Days Before Symptom Onset, Have You Had Close Contact With A Laboratory-confirm ed COVID-19 While That Case Was Ill? No [id number] Information not available 06/19/2022 In The 14 Days Before Symptom Onset, Have You Had Close Contact With A Person Who Is Under Investigation For COVID-19 While That Person Was Ill? No [id number] Information not available 06/19/2022 What Type Of Diet Are You Following? REGULAR [id number] Information not available 06/19/2022 What Is Your Relationship Status? Single [id number] Information not available 06/19/2022 Do You Use Any Illicit Or Recreational Drugs? No [id number] Information not available 06/19/2022 Have You Recently Traveled Abroad? No [id number] Information not available 06/19/2022 Do You Have Any Dietary Restrictions? No [id number] Information not available 06/19/2022 Sex: Unknown Functional Status Question Answer Note LastModified by Organizat ion Details LastModified Time What is your exercise level? None [id number] Information not available 06/19/2022 Mental Status None recorded. Family History Relationship Description Onset Age of this Age Resolved Age Notes LastModified by Organization Details LastModified Time Mother Cholecystect viktoria Diabet ic [id number] Not available 06/19/2022 21:47:52 Medical History Condition Response ASTHMA Y Gynecological HistoryNo gynecological history recorded. Obstetrics History GPAL:G 0 P 0 0 0 0 Past Encounters Encounter ID Performer Location Encounter Start Date Encounter Closed Date Diagnosis/Indication Diagnosis SNOMED-CT Code Diagnosis ICD10 Code Diagnosis Note [id number] [facility] [address] [address] 12/06/2021 00:00:00 12/06/2021 13:43:04 [id number] [facility] [address] [facility] [address] 02/21/2022 00:00:00 02/21/2022 13:30:32 [id number] [facility] [address] [address] 06/06/2022 00:00:00 06/06/2022 13:28:11 [id number] Dayo dawn MD [facility] [address] [address] 07/18/2022 11:36:25 07/18/2022 12:24:15 Health Concerns Section Related Observation LastModified by Organization Detai ls LastModified Time None Recorded Concern Status LastModified by Organization Details LastModified Time None Recorded Advance Directives Directive None Recorded Payers Encounter Date Sequence Insurance Name Policy Number Policy Hdez Covered Member ID Hdez Member ID Guarantor Name 07/18/2022 1 [facility] (MEDICAID REPLACEMENT - HMO) [id number] Bonnie Davila [id number] Bonnie Giovanni Notes Date Note Type Note Provider Name and Address Organization Details Recorded Time 07/18/2022 text/html no complaints. Tolerating a diet, having no pain. Having regular bowel movements Dayo Nichole MD [address] [place] [address], [place], [address], [facility] 07/18/2022 12:17:27 OBGyn Episode No OBEpisode recorded.
--- NOTE | 2024-05-17 14:49 | ED_ITS ---
HPI - Back Pain/Injury General Chief Complaint: Back Pain/Injury <Dulcebrittney Yu APRN - Last Filed: 05/17/24 14:53> Stated Complaint: back pain <Dulce Yu APRN - Last Filed: 05/17/24 14:53> Time Seen by Provider: 05/17/24 14:20 <Dulce Yu APRN - Last Filed: 05/17/24 14:53> Focused HPI: Patient is a 28-year-old female who presents to the ER with lower back pain that started last night. 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 Patient reports she has a history of back problems but it has never been this bad. She endorses a history of asthma. Patient denies urinary symptoms, abdominal pain, recent fevers. GENERAL: Well-appearing, well-nourished, and in no acute distress. HEAD: Normocephalic, atraumatic. CHEST: Clear to auscultation. ?No respiratory distress. HEART: Regular rate and rhythm.? NEURO: ?Alert and oriented x3. Patient screened in triage and initial orders placed.? ?Additional care and disposition to be based upon?diagnostic testing and treatment. <Dulce Yu APRN - Last Filed: 05/17/24 14:53> Focused HPI: Patient is a 28-year-old female who presents to the ER with lower back pain that started last night. 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 It is bandlike across her lower back. She is not associated with leg weakness. She has not urinary retention or bowel incontinence. No saddle anesthesia. No other high risk factors such as fevers IV drug abuse cancer or significant trauma. GENERAL: Well-appearing, well-nourished, and in no acute distress. HEAD: Normocephalic, atraumatic. CHEST: Clear to auscultation. ?No respiratory distress. HEART: Regular rate and rhythm.? NEURO: ?Alert and oriented x3. Patient screened in triage and initial orders placed.? ?Additional care and disposition to be based upon?diagnostic testing and treatment. <Mason D eLa Rosa MD - Last Filed: 05/17/24 17:00> Related Data Home Medications: Home Medications ?Medication ?Instructions ?Recorded ?Confirmed ?Last Taken ?Type albuterol sulfate 90 mcg/actuation inhalation 12/21/20 Unknown History aerosol inhaler mometasone-formoterol HFA 200 inhalation 12/21/20 Unknown History mcg-5 mcg/actuation aerosol inhaler (Dulera) montelukast 10 mg tablet mg PO 04/01/24 04/01/24 Unknown History <Dulce Yu, TECHNICAL IMPLEMENTATION LEAD - Last Filed: 05/17/24 14:53> Allergies/Adverse Reactions: Allergies Allergy/AdvReac Type Severity Reaction Status Date / Time amoxicillin Allergy Rash Verified 05/17/24 13:07 morphine AdvReac Intermediate Difficulty Verified 05/17/24 13:07 Breathing Penicillins AdvReac Mild coughing Verified 05/17/24 13:07 <Dulce Yu TECHNICAL IMPLEMENTATION LEAD - Last Filed: 05/17/24 14:53> [facility] Past Medical History Medical History: Medical History Asthma <Dulce Yu, TECHNICAL IMPLEMENTATION LEAD - Last Filed: 05/17/24 14:53> Surgical History Surgical History: Surgical History History of cholecystectomy <Dulce Yu, TECHNICAL IMPLEMENTATION LEAD - Last Filed: 05/17/24 14:53> Family History Family History: Family History (Updated 04/01/24 @ 14:16 by Lennox Bacon MA) Sibling Asthma Mother Diabetes mellitus Hypertension Grandparent Diabetes mellitus Hypertension <Dulce Yu TECHNICAL IMPLEMENTATION LEAD - Last Filed: 05/17/24 14:53> Social History Social History: Social History Smoking status: Never smoker <Dulce Yu APRN - Last Filed: 05/17/24 14:53> Exam Narrative: APPEARANCE: No apparent distress. Head: atraumatic. EYES: EOMI, NOSE: Atraumatic NECK: Trachea midline RESPIRATORY: No increased rate of breathing clear to auscultation CARDIOVASCULAR: RRR, ABDOMINAL: Non-distended soft nontender MUSCULOSKELETAl: No obvious deformities NEURO: Alert. Cranial nerves 2-12 grossly intact. Sensation light touch, motor function cerebellar function intact for 4 extremities. Gait exam was normal. SKIN:: Warm, dry. Normal color PSYCHIATRIC: Normal affect <Mason De La Rosa MD - Last Filed: 05/17/24 17:00> Course Vital Signs Vital signs: Vital Signs Temperature 97.8 F 05/17/24 13:03 Pulse Rate 84 05/17/24 13:03 Respiratory Rate 20 05/17/24 13:03 Blood Pressure 115/62 05/17/24 13:03 Pulse Oximetry 100 05/17/24 13:03 Oxygen Delivery Room Air 05/17/24 13:03 Temperature 97.8 F 05/17/24 13:03 Pulse Rate 84 05/17/24 13:03 Respiratory Rate 20 05/17/24 13:03 Blood Pressure 115/62 05/17/24 13:03 Pulse Oximetry 100 05/17/24 13:03 Oxygen Delivery Room Air 05/17/24 13:03 <Dulce Yu APRN - Last Filed: 05/17/24 14:53> Vital Signs Temperature 97.8 F 05/17/24 13:03 Pulse Rate 84 05/17/24 13:03 Respiratory Rate 20 05/17/24 13:03 Blood Pressure 115/62 05/17/24 13:03 Pulse Oximetry 100 05/17/24 13:03 Oxygen Delivery Room Air 05/17/24 13:03 Temperature 97.8 F 05/17/24 13:03 Pulse Rate 84 05/17/24 13:03 Respiratory Rate 20 05/17/24 13:03 Blood Pressure 115/62 05/17/24 13:03 Pulse Oximetry 100 05/17/24 13:03 Oxygen Delivery Room Air 05/17/24 13:03 <Mason De La Rosa MD - Last Filed: 05/17/24 17:00> MDM - Back Pain/Injury MDM Narrative Medical decision making narrative: -Course: 28-year-old female presenting with lower back after trying to move a heavy object. No red flags on history or physical. Patient treated with pain control and muscle relaxers. Patient discharged primary care follow-up. -DDX includes but is not limited to: Lower back strain, muscle spasms, <Mason De La Rosa MD - Last Filed: 05/17/24 17:00> Discharge Plan Discharge Clinical Impression: Back strain <Dulce Yu APRN - Last Filed: 05/17/24 14:53> Patient Disposition: Home, Self-Care <Dulce Yu APRN - Last Filed: 05/17/24 14:53> Condition: Stable <Dulce Yu APRN - Last Filed: 05/17/24 14:53> Instructions: Antibiotic Form, Acute Low Back Pain (ED) <Dulce Yu APRN - Last Filed: 05/17/24 14:53> Additional Instructions: Please take Motrin Tylenol Robaxin for pain. Please follow-up with your primary care physician. Return to ED if you develop weakness your legs, inability to urinate or bowel incontinence. <Dulce Yu APRN - Last Filed: 05/17/24 14:53> Patient Language: Upper Sorbian <Dulce Yu APRN - Last Filed: 05/17/24 14:53> Prescriptions: New ibuprofen 800 mg tablet 800 mg PO TID PRN (Reason: pain) 7 Days Qty: 21 0RF acetaminophen 500 mg tablet 1,000 mg PO TID PRN (Reason: kimberly) 7 Days Qty: 42 0RF methocarbamol 750 mg tablet 1,500 mg PO TID Qty: 35 0RF No Action montelukast 10 mg tablet PO drospirenone-ethinyl estradiol 3-0.03 mg tablet 1 tablet PO DAILY Qty: 84 1RF albuterol sulfate 90 mcg/actuation HFA aerosol inhaler INHALATION Dulera 200-5 mcg/actuation HFA aerosol inhaler INHALATION <Dulce Yu APRN - Last Filed: 05/17/24 14:53> Follow-up/Referrals: Irlanda,FLORENCIO Davis [Primary Care Provider] - 3 Days <Dulce Yu APRN - Last Filed: 05/17/24 14:53> Stand Alone Forms: Work/School Release IP <Dulce Yu APRN - Last Filed: 05/17/24 14:53>
[2024-05-17] MEDS: predniSONE 20 MG TABLET 60 MG PO (15:25)
[2024-05-17] MEDS: KETOROLAC (*BKC) 60 MG/2 ML VIAL IM (15:25)
[2024-05-17] MEDS: ACETAMINOPHEN 500 MG TABLET 1000 MG PO (16:13)
[2024-05-17] MEDS: LIDOCAINE 5% PATCH 1 PATCH TRANSDERM (16:13)
--- NOTE | 2024-05-17 16:16 | PC.NURSE ---
pt would like to decline Robaxin due to hx of sedative effects and pain has gone down to 4/10. accepted Tylenol PO and lidocaine patch
--- OUTSIDE RECORDS SUMMARY | 2024-05-17 16:33 | XMS_ITS | CONTINUITY OF CARE DOCUMENT ---
Author Name margaret parvinkelsea Address Unknown Organization 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
[2024-05-17 16:39] LABS: BEDSIDEPREGUCG Negative (Negative)
== END 2024-05-17 17:10 | disposition home or self-care (01) ==
PROVIDERS: Registered Nurse; Emergency Provider Emergency Medicine; PCP Physician Assistant
DX: S39.012A Strain of muscle, fascia and tendon of lower back, initial encounter (principal); X50.0XXA Overexertion from strenuous movement or load, initial encounter; J45.909 Unspecified asthma, uncomplicated
CPT/HCPCS: 81025; 96372; 99283; A9270; J1885; J7512

== ENCOUNTER 2024-07-24 11:28 | Emergency (ER) | payer SELFPAY ==
[2024-07-24 11:30] VITALS: BP 114/69; PULSE 67; RESP 16; TEMP 36.7; O2SAT 100
--- OUTSIDE RECORDS SUMMARY | 2024-07-24 11:30 | XMS_ITS | Data Portability ---
Author Organization [employer] [facility] [employer], Main Office Address [address] [place] [address] Assessment Encounter Date Assessment Date Assessment LastModified [...] 139 mmol/ L 137-14 5 Not Available [facility] (Lab) [address] [place], [address], 01/04/2022 18:12:20 01/05/20 22 01/04/2022 COMPR EHENS JOSÉ LUIS METAB OLIC PANEL potassium 4.7 mmol/ L 3.5-5. 1 Not Available [facility] (Lab) [address] [place], [address], 01/04/2022 18:12:20 01/05/20 22 01/04/2022 COMPR EHENS JOSÉ LUIS METAB OLIC PANEL chloride 101 mmol/ L 98-107 Not Available [facility] (Lab) [address] [place], [address], 01/04/2022 18:12:20 01/05/20 22 01/04/2022 COMPR EHENS JOSÉ LUIS METAB OLIC PANEL carbon dioxide 26 mmol/ L 22-30 Not Available [facility] (Lab) [address] [place], [address], 01/04/2022 18:12:20 01/05/20 22 01/04/2022 COMPR EHENS JOSÉ LUIS METAB OLIC PANEL anion gap 16.7 mmol/ L 14-22 Not Available [facility] (Lab) [address] [place], [address], 01/04/2022 18:12:20 01/05/20 22 01/04/2022 COMPR EHENS JOSÉ LUIS METAB OLIC PANEL glucose 91 mg/dL 70-99 Not Available [facility] (Lab) [address] [place], [address], 01/04/2022 18:12:20 01/05/20 22 01/04/2022 COMPR EHENS JOSÉ LUIS METAB OLIC PANEL BUN 11 mg/dL 8-19 Not Available [facility] (Lab) [address] [place], [address], 01/04/2022 18:12:20 01/05/20 22 01/04/2022 COMPR EHENS JOSÉ LUIS METAB OLIC PANEL creatinine 0.73 mg/dL 0.66-1 .25 Not Available [facility] (Lab) [address] [place], [address], 01/04/2022 18:12:20 01/05/20 22 01/04/2022 COMPR EHENS JOSÉ LUIS METAB OLIC PANEL GFR >60 Refer ence Range : [place] ge GFR Healt hy Adult : >60 [...] calcu lator is avail able on the [facility] websi te: https ://shorty pena.charli jara.o rg/pr ofess ional s/kdo qi/gf r_cal culat or Not Available [facility] (Lab) [address] [place], [address], 01/04/2022 18:12:20 01/05/20 22 01/04/2022 COMPR EHENS JOSÉ LUIS METAB OLIC PANEL alkaline phosphatase 83 U/L 38-126 Not Available [facility] (Lab) [address] [place], [address], 01/04/2022 18:12:20 01/05/20 22 01/04/2022 COMPR EHENS JOSÉ LUIS METAB OLIC PANEL alanine aminotransfe rase 21 U/L 0-35 Not Available [facility] (Lab) [address] [place], [address], 01/04/2022 18:12:20 01/05/20 22 01/04/2022 COMPR EHENS JOSÉ LUIS METAB OLIC PANEL aspartate aminotransfe rase 27 U/L 15-37 Not Available [facility] (Lab) [address] [place], [address], 01/04/2022 18:12:20 01/05/20 22 01/04/2022 COMPR EHENS JOSÉ LUIS METAB OLIC PANEL bilirubin, total 1.20 mg/dL 0.20-1 .30 Not Available [facility] (Lab) [address] [place], [address], 01/04/2022 18:12:20 01/05/20 22 01/04/2022 COMPR EHENS JOSÉ LUIS METAB OLIC PANEL calcium 10.0 mg/dL 8.4-10 .2 Not Available [facility] (Lab) [address] [place], [address], 01/04/2022 18:12:20 01/05/20 22 01/04/2022 COMPR EHENS JOSÉ LUIS METAB OLIC PANEL total protein 7.8 g/dL 6.3-8. 2 Not Available [facility] (Lab) [address] [place], [address], 01/04/2022 18:12:20 01/05/20 22 01/04/2022 COMPR EHENS JOSÉ LUIS METAB OLIC PANEL albumin 4.9 g/dL 3.4-5. 0 Not Available [facility] (Lab) [address] [place], [address], 01/04/2022 18:12:20 01/05/20 22 01/04/2022 COMPR EHENS JOSÉ LUIS METAB OLIC PANEL globulin 2.9 g/dL 2.6-4. 2 Not Available [facility] (Lab) [address] [place], [address], 01/04/2022 18:12:20 01/05/20 22 01/04/2022 COMPR EHENS JOSÉ LUIS METAB OLIC PANEL A/G ratio 1.7 ratio 1.0-2. 0 Not Available [facility] (Lab) [address] [place], [address], 01/04/2022 18:12:20 01/05/20 22 01/04/2022 SARS- COV-2 [...] provi ders and patie nts at the [facility] sebas: https ://Phorest.FX Aligned .gov/ media /1363 12/do wnloa d https ://Phorest.fda .gov/ media /1363 13/do wnloa d https ://Phorest.fda .gov/ media /1421 92/do wnloa d https ://Phorest.fda .gov/ media /1421 91/do wnloa d Cjo jose e y: Real- Time RT-PC R Not Available [facility] (Lab) [address] [place], [address], 01/04/2022 16:29:57 01/05/20 22 01/04/2022 CBC/C OMPLE TE BLD COUNT W/DIF F white blood cells 7.1 x10'3 /uL 4.2-10 .8 Not Available [facility] (Lab) [address] [place], [address], 01/04/2022 15:30:54 01/05/20 22 01/04/2022 CBC/C OMPLE TE BLD COUNT W/DIF F red blood cells 5.04 x10'6 /uL 3.80-5 .20 Not Available [facility] (Lab) [address] [place], [address], 01/04/2022 15:30:54 01/05/20 22 01/04/2022 CBC/C OMPLE TE BLD COUNT W/DIF F hemoglobin 14.4 g/dL 12.0-1 5.6 Not Available [facility] (Lab) [address] [place], [address], 01/04/2022 15:30:54 01/05/20 22 01/04/2022 CBC/C OMPLE TE BLD COUNT W/DIF F hematocrit 44.4 % 35.7-4 5.7 Not Available [facility] (Lab) [address] [place], [address], 01/04/2022 15:30:54 01/05/20 22 01/04/2022 CBC/C OMPLE TE BLD COUNT W/DIF F mean red cell volume 88.1 fL 82.0-9 9.0 Not Available [facility] (Lab) [address] [place], [address], 01/04/2022 15:30:54 01/05/20 22 01/04/2022 CBC/C OMPLE TE BLD COUNT W/DIF F mean red cell hemoglobin 28.6 pg 27.0-3 3.0 Not Available [facility] (Lab) [address] [place], [address], 01/04/2022 15:30:54 01/05/20 22 01/04/2022 CBC/C OMPLE TE BLD COUNT W/DIF F mean RBC HGB concentratio n 32.4 g/dL 31.0-3 6.0 Not Available [facility] (Lab) [address] [place], [address], 01/04/2022 15:30:54 01/05/20 22 01/04/2022 CBC/C OMPLE TE BLD COUNT W/DIF F red cell distribution width 11.8 % 11.8-1 5.5 Not Available [facility] (Lab) [address] [place], [address], 01/04/2022 15:30:54 01/05/20 22 01/04/2022 CBC/C OMPLE TE BLD COUNT W/DIF F platelets 293 x10'3 /uL 150-40 0 Not Available [facility] (Lab) [address] [place], [address], 01/04/2022 15:30:54 01/05/20 22 01/04/2022 CBC/C OMPLE TE BLD COUNT W/DIF F mean platelet volume 10.0 fL 9.0-12 .4 Not Available [facility] (Lab) [address] [place], [address], 01/04/2022 15:30:54 01/05/20 22 01/04/2022 CBC/C OMPLE TE BLD COUNT W/DIF F neutrophils 56.5 % 39.0-7 2.0 Not Available [facility] (Lab) [address] [place], [address], 01/04/2022 15:30:54 01/05/20 22 01/04/2022 CBC/C OMPLE TE BLD COUNT W/DIF F lymphocytes 34.3 % 16.0-4 7.0 Not Available [facility] (Lab) [address] [place], [address], 01/04/2022 15:30:54 01/05/20 22 01/04/2022 CBC/C OMPLE TE BLD COUNT W/DIF F monocytes 6.8 % 5.0-12 .0 Not Available [facility] (Lab) [address] [place], [address], 01/04/2022 15:30:54 01/05/20 22 01/04/2022 CBC/C OMPLE TE BLD COUNT W/DIF F eosinophils 1.8 % 1.0-7. 0 Not Available [facility] (Lab) [address] [place], [address], 01/04/2022 15:30:54 01/05/20 22 01/04/2022 CBC/C OMPLE TE BLD COUNT W/DIF F basophils 0.3 % 0.0-2. 0 Not Available [facility] (Lab) [address] [facility] [place], [address], 01/04/2022 15:30:54 01/05/20 22 01/04/2022 CBC/C OMPLE TE BLD COUNT W/DIF F immature granulocytes 0.3 % 0.00-0 .50 Not Available [facility] (Lab) [address] [place], [address], 01/04/2022 15:30:54 01/05/20 22 01/04/2022 CBC/C OMPLE TE BLD COUNT W/DIF F neutrophils, absolute count 4.01 x10'3 /uL 1.5-8. 0 Not Available [facility] (Lab) [address] [place], [address], 01/04/2022 15:30:54 01/05/20 22 01/04/2022 CBC/C OMPLE TE BLD COUNT W/DIF F lymphocytes, absolute count 2.43 x10'3 /uL 1.07-3 .43 Not Available [facility] (Lab) [address] [place], [address], 01/04/2022 15:30:54 01/05/20 22 01/04/2022 CBC/C OMPLE TE BLD COUNT W/DIF F monocytes, absolute count 0.48 x10'3 /uL 0.29-0 .99 Not Available [facility] (Lab) [address] [place], [address], 01/04/2022 15:30:54 01/05/20 22 01/04/2022 CBC/C OMPLE TE BLD COUNT W/DIF F eosinophils, absolute count 0.13 x10'3 /uL 0.02-0 .53 Not Available [facility] (Lab) [address] [place], [address], 01/04/2022 15:30:54 01/05/20 22 01/04/2022 CBC/C OMPLE TE BLD COUNT W/DIF F basophils, absolute count 0.02 x10'3 /uL 0.01-0 .08 Not Available [facility] (Lab) [address] [place], [address], 01/04/2022 15:30:54 01/05/20 22 01/04/2022 CBC/C OMPLE TE BLD COUNT W/DIF F immature granulocytes ,absolute 0.02 x10'3 /uL 0.00-0 .05 Not Available [facility] (Lab) [address] [place], [address], 01/04/2022 15:30:54 01/05/20 22 01/04/2022 CBC/C OMPLE TE BLD COUNT W/DIF F nucleated red blood cells 0.0 % -0 Not Available [facility] (Lab) [address] [place], [address], 01/04/2022 15:30:54 01/05/20 22 01/04/2022 CBC/C OMPLE TE BLD COUNT W/DIF F NRBC# 0.00 x10'3 /uL Not Available [facility] (Lab) [address] [place], [address], 01/04/2022 15:30:54 07/05/19 23 07/04/2022 CBC/C OMPLE TE BLD COUNT W/DIF F white blood cells 8.9 x10'3 /uL 4.2-10 .8 Not Available [facility] (Lab) [address] [place], [address], 07/04/2022 12:34:43 07/05/19 23 07/04/2022 CBC/C OMPLE TE BLD COUNT W/DIF F red blood cells 4.82 x10'6 /uL 3.80-5 .20 Not Available [facility] (Lab) [address] [place], [address], 07/04/2022 12:34:43 07/05/19 23 07/04/2022 CBC/C OMPLE TE BLD COUNT W/DIF F hemoglobin 13.6 g/dL 12.0-1 5.6 Not Available [facility] (Lab) [address] [place], [address], 07/04/2022 12:34:43 07/05/19 23 07/04/2022 CBC/C OMPLE TE BLD COUNT W/DIF F hematocrit 42.8 % 35.7-4 5.7 Not Available [facility] (Lab) [address] [place], [address], 07/04/2022 12:34:43 07/05/19 23 07/04/2022 CBC/C OMPLE TE BLD COUNT W/DIF F mean red cell volume 88.8 fL 82.0-9 9.0 Not Available [facility] (Lab) [address] [place], [address], 07/04/2022 12:34:43 07/05/19 23 07/04/2022 CBC/C OMPLE TE BLD COUNT W/DIF F mean red cell hemoglobin 28.2 pg 27.0-3 3.0 Not Available [facility] (Lab) [address] [place], [address], 07/04/2022 12:34:43 07/05/19 23 07/04/2022 CBC/C OMPLE TE BLD COUNT W/DIF F mean RBC HGB concentratio n 31.8 g/dL 31.0-3 6.0 Not Available [facility] (Lab) [address] [place], [address], 07/04/2022 12:34:43 07/05/19 23 07/04/2022 CBC/C OMPLE TE BLD COUNT W/DIF F red cell distribution width 12.0 % 11.8-1 5.5 Not Available [facility] (Lab) [address] [place], [address], 07/04/2022 12:34:43 07/05/19 23 07/04/2022 CBC/C OMPLE TE BLD COUNT W/DIF F platelets 310 x10'3 /uL 150-40 0 Not Available [facility] (Lab) [address] [place], [address], 07/04/2022 12:34:43 07/05/19 23 07/04/2022 CBC/C OMPLE TE BLD COUNT W/DIF F mean platelet volume 9.8 fL 9.0-12 .4 Not Available [facility] (Lab) [address] [place], [address], 07/04/2022 12:34:43 07/05/19 23 07/04/2022 CBC/C OMPLE TE BLD COUNT W/DIF F neutrophils 55.1 % 39.0-7 2.0 Not Available [facility] (Lab) [address] [place], [address], 07/04/2022 12:34:43 07/05/19 23 07/04/2022 CBC/C OMPLE TE BLD COUNT W/DIF F lymphocytes 35.9 % 16.0-4 7.0 Not Available [facility] (Lab) [address] [place], [address], 07/04/2022 12:34:43 07/05/19 23 07/04/2022 CBC/C OMPLE TE BLD COUNT W/DIF F monocytes 6.6 % 5.0-12 .0 Not Available [facility] (Lab) [address] [place], [address], 07/04/2022 12:34:43 07/05/19 23 07/04/2022 CBC/C OMPLE TE BLD COUNT W/DIF F eosinophils 2.0 % 1.0-7. 0 Not Available [facility] (Lab) [address] [place], [address], 07/04/2022 12:34:43 07/05/19 23 07/04/2022 CBC/C OMPLE TE BLD COUNT W/DIF F basophils 0.2 % 0.0-2. 0 Not Available [facility] (Lab) [address] [place], [address], 07/04/2022 12:34:43 07/05/19 23 07/04/2022 CBC/C OMPLE TE BLD COUNT W/DIF F immature granulocytes 0.2 % 0.00-0 .50 Not Available [facility] (Lab) [address] [place], [address], 07/04/2022 12:34:43 07/05/19 23 07/04/2022 CBC/C OMPLE TE BLD COUNT W/DIF F neutrophils, absolute count 4.89 x10'3 /uL 1.5-8. 0 Not Available [facility] (Lab) [address] [place], [address], 07/04/2022 12:34:43 07/05/19 23 07/04/2022 CBC/C OMPLE TE BLD COUNT W/DIF F lymphocytes, absolute count 3.19 x10'3 /uL 1.07-3 .43 Not Available [facility] (Lab) [address] [place], [address], 07/04/2022 12:34:43 07/05/19 23 07/04/2022 CBC/C OMPLE TE BLD COUNT W/DIF F monocytes, absolute count 0.59 x10'3 /uL 0.29-0 .99 Not Available [facility] (Lab) [address] [place], [address], 07/04/2022 12:34:43 07/05/19 23 07/04/2022 CBC/C OMPLE TE BLD COUNT W/DIF F eosinophils, absolute count 0.18 x10'3 /uL 0.02-0 .53 Not Available [facility] (Lab) [address] [place], [address], 07/04/2022 12:34:43 07/05/19 23 07/04/2022 CBC/C OMPLE TE BLD COUNT W/DIF F basophils, absolute count 0.02 x10'3 /uL 0.01-0 .08 Not Available [facility] (Lab) [address] [place], [address], 07/04/2022 12:34:43 07/05/19 23 07/04/2022 CBC/C OMPLE TE BLD COUNT W/DIF F immature granulocytes ,absolute 0.02 x10'3 /uL 0.00-0 .05 Not Available [facility] (Lab) [address] [place], [address], 07/04/2022 12:34:43 07/05/19 23 07/04/2022 CBC/C OMPLE TE BLD COUNT W/DIF F nucleated red blood cells 0.0 % -0 Not Available [facility] (Lab) [address] [place], [address], 07/04/2022 12:34:43 07/05/19 23 07/04/2022 CBC/C OMPLE TE BLD COUNT W/DIF F NRBC# 0.00 x10'3 /uL Not Available [facility] (Lab) [address] [place], [address], 07/04/2022 12:34:43 07/05/19 23 07/04/2022 COMPR EHENS JOSÉ LUIS METAB OLIC PANEL sodium 139 mmol/ L 137-14 5 Not Available [facility] (Lab) [address] [place], [address], 07/04/2022 12:47:17 07/05/19 23 07/04/2022 COMPR EHENS JOSÉ LUIS METAB OLIC PANEL potassium 4.2 mmol/ L 3.5-5. 1 Not Available [facility] (Lab) [address] [place], [address], 07/04/2022 12:47:17 07/05/19 23 07/04/2022 COMPR EHENS JOSÉ LUIS METAB OLIC PANEL chloride 103 mmol/ L 98-107 Not Available [facility] (Lab) [address] [place], [address], 07/04/2022 12:47:17 07/05/19 23 07/04/2022 COMPR EHENS JOSÉ LUIS METAB OLIC PANEL carbon dioxide 27 mmol/ L 22-30 Not Available [facility] (Lab) [address] [place], [address], 07/04/2022 12:47:17 07/05/19 23 07/04/2022 COMPR EHENS JOSÉ LUIS METAB OLIC PANEL anion gap 13.2 mmol/ L 14-22 low Not Available [facility] (Lab) [address] [place], [address], 07/04/2022 12:47:17 07/05/19 23 07/04/2022 COMPR EHENS JOSÉ LUIS METAB OLIC PANEL glucose 99 mg/dL 70-99 Not Available [facility] (Lab) [address] [place], [address], 07/04/2022 12:47:17 07/05/19 23 07/04/2022 COMPR EHENS JOSÉ LUIS METAB OLIC PANEL BUN 13 mg/dL 8-19 Not Available [facility] (Lab) [address] [place], [address], 07/04/2022 12:47:17 07/05/19 23 07/04/2022 COMPR EHENS JOSÉ LUIS METAB OLIC PANEL creatinine 0.76 mg/dL 0.66-1 .25 Not Available [facility] (Lab) [address] [place], [address], 07/04/2022 12:47:17 07/05/19 23 07/04/2022 COMPR EHENS JOSÉ LUIS METAB OLIC PANEL GFR >60 Refer ence Range : [place] ge GFR Healt hy Adult : >60 [...] calcu lator is avail able on the [facility] websi te: https ://shorty w.charli jara.o rg/pr latishaess ional s/kdo qi/gf r_cal culat or Not Available [facility] (Lab) [address] [place], [address], 07/04/2022 12:47:17 07/05/1907/04/2022 COMPR EHENS JOSÉ LUIS METAB OLIC PANEL alkaline phosphatase 89 U/L 38-126 Not Available [facility] (Lab) [address] [place], [address], 07/04/2022 12:47:17 07/05/19 23 07/04/2022 COMPR EHENS JOSÉ LUIS METAB OLIC PANEL alanine aminotransfe rase 47 U/L 0-35 high Not Available [facility] (Lab) [address] [place], [address], 07/04/2022 12:47:17 07/05/19 23 07/04/2022 COMPR EHENS JOSÉ LUIS METAB OLIC PANEL aspartate aminotransfe rase 34 U/L 15-37 Not Available [facility] (Lab) [address] [place], [address], 07/04/2022 12:47:17 07/05/19 23 07/04/2022 COMPR EHENS JOSÉ LUIS METAB OLIC PANEL bilirubin, total 1.00 mg/dL 0.20-1 .30 Not Available [facility] (Lab) [address] [place], [address], 07/04/2022 12:47:17 07/05/19 23 07/04/2022 COMPR EHENS JOSÉ LUIS METAB OLIC PANEL calcium 9.3 mg/dL 8.4-10 .2 Not Available [facility] (Lab) [address] [place], [address], 07/04/2022 12:47:17 07/05/19 23 07/04/2022 COMPR EHENS JOSÉ LUIS METAB OLIC PANEL total protein 7.8 g/dL 6.3-8. 2 Not Available [facility] (Lab) [address] [place], [address], 07/04/2022 12:47:17 07/05/19 23 07/04/2022 COMPR EHENS JOSÉ LUIS METAB OLIC PANEL albumin 4.5 g/dL 3.4-5. 0 Not Available [facility] (Lab) [address] [place], [address], 07/04/2022 12:47:17 07/05/19 23 07/04/2022 COMPR EHENS JOSÉ LUIS METAB OLIC PANEL globulin 3.3 g/dL 2.6-4. 2 Not Available [facility] (Lab) [address] [place], [address], 07/04/2022 12:47:17 07/05/19 23 07/04/2022 COMPR EHENS JOSÉ LUIS METAB OLIC PANEL A/G ratio 1.4 ratio 1.0-2. 0 Not Available [facility] (Lab) [address] [place], [address], 07/04/2022 12:47:17 07/09/19 23 07/08/2022 URINE HCG QUAL/ POINT OF CARE ur preg NEGATI VE TESTI NG PERFO RMED BY SURGI DEANN SERVI ROSELINE PERSO NNEL. Not Available [facility] (Lab) [address] [place], [address], 07/08/2022 14:52:42 07/09/19 23 07/08/2022 URINE HCG QUAL/ POINT OF CARE lot no. [id number] Not Available [facility] (Lab) [address] [place], [address], 07/08/2022 14:52:42 07/09/19 23 07/08/2022 URINE HCG QUAL/ POINT OF CARE pos QC POSITI VE Not Available [facility] (Lab) [address] [place], [address], 07/08/2022 14:52:42 07/09/19 23 07/08/2022 URINE HCG QUAL/ POINT OF CARE neg QC NEGATI VE Not Available [facility] (Lab) [address] [place], [address], 07/08/2022 14:52:42 11/30/19 22 11/22/2021 US, abdom en, limit ed No observ ation record ed. [id number] Not Available 06/19/2022 21:49:06 11/30/19 22 11/23/2021 CT, abdom en + pelvi s, w/ contr ast No observ ation record ed. [id number] Not Available 06/19/2022 21:49:06 Result Notes None recorded. Procedures Surgical History None recorded. Imaging Results Imaging Date Name Status LastModified by Organiz ation Details LastModified Time 11/22/2021 US, abdomen, limited completed [id number] Information not available 06/19/2022 21:49:06 11/23/2021 CT, abdomen + pelvis, w/ contrast completed [id number] Information not available 06/19/2022 21:49:06 Procedure Notes None recorded. Medical Equipment None Reported. Allergies Allergen ID Allergen Name Allergen Category Reaction Reaction Severity Criticality Documentation Date Start Date Code Code System Note Provider Name and Address Organization Details Recorded Time 82439 amoxicill in medicatio n rash severe Not available 06/19/2022 723 RxNorm Not Available [facility] 21:49:02 Medications Name Sig Start Date Stop [...] % 69 /min 14 /min 97.8 [degF] 940525. 46 g 110 mm[Hg] 70 mm[Hg] Not Available [facility] 3 21:47:56 Date Recorded Body mass index (BMI) Body height Oxygen saturation Oxygen saturation in Arterial blood by Pulse oximetry Heart rate Respiratory rate Body temperature Body weight Systolic blood pressure Diastolic blood pressure Provider Name and Address Organization Details Last Updated DateTime 2 45 kg/m2 160.02 cm 98 % 98 % 77 /min 14 /min 97.8 [degF] 567359. 46 g 110 mm[Hg] 70 mm[Hg] Not Available [facility] 3 21:47:56 Date Recorded Body mass index (BMI) Body height Oxygen saturation Oxygen saturation in Arterial blood by Pulse oximetry Heart rate Respiratory rate Body temperature Body weight Systolic blood pressure Diastolic blood pressure Provider Name and Address Organization Details Last Updated DateTime 3 45 kg/m2 160.02 cm 98 % 98 % 76 /min 14 /min 98.6 [degF] 781859. 46 g 110 mm[Hg] 72 mm[Hg] Not Available [facility] 3 21:47:56 Date Recorded Body height Body mass index (BMI) Body weight Body temperature Heart rate Respiratory rate Oxygen saturation Oxygen saturation in Arterial blood by Pulse oximetry Systolic blood pressure Diastolic blood pressure Provider Name and Address Organization Details Last Updated DateTime 3 160.02 cm 45 kg/m2 221110. 46 g 98.6 [degF] 88 /min 14 /min 98 % 98 % 120 mm[Hg] 80 mm[Hg] Carolina YO - [facility] [place] [employer] [facility] 3 12:06:29 Social History Question Answer Notes LastModified by SwypeShield[employer]at ion Details LastModified Time Tobacco Smoking Status Never Smoker Not Available [facility] 06/19/2022 21:47:41 What Is Your Level Of Alcohol Consumption? None [id number] Information not available 06/19/2022 What Is Your Level Of Caffeine Consumption? Occasional [id number] Information not available 06/19/2022 In The 14 Days Before Symptom Onset, Have You Had Close Contact With A Laboratory-confirm ed COVID-19 While That Case Was Ill? No [id number] Information not available 06/19/2022 In The 14 Days Before Symptom Onset, Have You Had Close Contact With A Person Who Is Under Investigation For COVID-19 While That Person Was Ill? No [id number] Information not available 06/19/2022 What Type Of Diet Are You Following? REGULAR [id number] Information not available 06/19/2022 What Is Your Relationship Status? Single [id number] Information not available 06/19/2022 Do You Use Any Illicit Or Recreational Drugs? No [id number] Information not available 06/19/2022 Have You Recently Traveled Abroad? No [id number] Information not available 06/19/2022 Do You Have Any Dietary Restrictions? No [id number] Information not available 06/19/2022 Sex: Unknown Functional Status Question Answer Note LastModified by Organizat ion Details LastModified Time What is your exercise level? None [id number] Information not available 06/19/2022 Mental Status None recorded. Family History Relationship Description Onset Age of this Age Resolved Age Notes LastModified by Organization Details LastModified Time Mother Cholecystect viktoria Diabet ic [id number] Not available 06/19/2022 21:47:52 Medical History Condition Response ASTHMA Y Gynecological HistoryNo gynecological history recorded. Obstetrics History GPAL:G 0 P 0 0 0 0 Past Encounters Encounter ID Performer Location Encounter Start Date Encounter Closed Date Diagnosis/Indication Diagnosis SNOMED-CT Code Diagnosis ICD10 Code Diagnosis Note [id number] [facility] [address] [address] 12/06/2021 00:00:00 12/06/2021 13:43:04 [id number] [facility] [address] [facility] [address] 02/21/2022 00:00:00 02/21/2022 13:30:32 [id number] [facility] [address] [address] 06/06/2022 00:00:00 06/06/2022 13:28:11 [id number] Dayo dawn MD [facility] [address] [address] 07/18/2022 11:36:25 07/18/2022 12:24:15 Health Concerns Section Related Observation LastModified by Organization Detai ls LastModified Time None Recorded Concern Status LastModified by Organization Details LastModified Time None Recorded Advance Directives Directive None Recorded Payers Encounter Date Sequence Insurance Name Policy Number Policy Hdez Covered Member ID Hdez Member ID Guarantor Name 07/18/2022 1 [facility] (MEDICAID REPLACEMENT - HMO) [id number] Bonnie Davila [id number] Bonnie Giovanni Notes Date Note Type Note Provider Name and Address Organization Details Recorded Time 07/18/2022 text/html no complaints. Tolerating a diet, having no pain. Having regular bowel movements Dayo Nichole MD [address] [place] [address], [place], [address], [facility] [employer] [facility] 07/18/2022 12:17:27 OBGyn Episode No OBEpisode recorded.
--- OUTSIDE RECORDS SUMMARY | 2024-07-24 11:30 | XMS_ITS | Data Portability ---
Author Organization [facility] [employer] , [facility] Address [address] [place] [address] Care Team Providers Care [employer] Police Officer Name Role Phone [facility] Paper Roller Assessment No assessment recorded. Plan of Treatment Reminders Order Date Submit Date Provider Last Modified By Organization Details Last Modified Time Details Appointments None recorded. Lab culture, urine 2021 J C Lads [facility], [address] [place], [address], 01:12:21 pap, LB 2021 J C Lads [facility], [address] [place], [address], 11:29:22 unlisted lab - Pap reflex hold 2021 SARAH [place] Jose Guadalupe, [address] [place] [address], [address], 09:52:17 Referral None recorded. Procedures None recorded. Surgeries None recorded. Imaging US, transvagina l 2021 [email or web address] 0 Not available 21:39:17 Medication Orders None recorded. Patient TargetsNo targets recorded. Patient Instructions Encounter Date Encounter Id Patient Instructions Last Modified By Organization Details Last Modified Time 01/21/2022 [id number] Patient Health Questionnaire-9* [email or web address] Not available 01/31/2022 15:42:59 learning about dietary guidelines Not available 01/21/2022 17:03:48 eating healthy foods: care instructions Not available 01/21/2022 17:03:48 02/11/2022 [id number] flank pain: care instructions Not available 02/11/2022 16:38:00 Reason for Referral None Reported. Results Created Date Observation Date Name Description Value Unit Range Abnormal Flag Note LastModifiedBy Organization Detail LastModifiedTime 02/15/2002/14/2022 CULTU RE, URINE , ROUTI NE culture, urine, routine SEE NOTE CULTU RE, URINE , ROUTI NE Micro Numbe r: [id number] Test Statu s: Final Speci men [...] NUMBE R: 866.6 97.83 78 Not Available [employer] [address] [address] [place], [address], 02/14/2022 01:12:21 01/22/2001/22/2022 PAP REFLE X HOLD Pap reflex hold Receiv ed receiv ed Not Available [facility] [address] [place], [address], 01/22/2022 09:52:17 01/22/2001/25/2022 THINP REP TIS PAP clinical information: normal None given Not Available [employer] [facility] [address] [place], [address], 01/25/2022 11:29:21 01/22/2001/25/2022 THINP REP TIS PAP LMP: normal NONE GIVEN Not Available [address], [address], 01/25/2022 11:29:21 01/22/20 22 01/25/2022 THINP REP TIS PAP prev. Pap: normal NONE GIVEN Not Available [address], [address], 01/25/2022 11:29:21 01/22/20 22 01/25/2022 THINP REP TIS PAP prev. BX: normal NONE GIVEN Not Available [address], [address], 01/25/2022 11:29:21 01/22/20 22 01/25/2022 THINP REP TIS PAP source: normal Cervi x, Endoc ervix Not Available [address], [address], 01/25/2022 11:29:21 01/22/20 22 01/25/2022 THINP REP TIS PAP statement of adequacy: normal SATIS FACTO RY FOR EVALU ATION Not Available [address], [address], 01/25/2022 11:29:21 01/22/20 22 01/25/2022 THINP REP TIS PAP general categorizati on: abnormal EPITH ELIAL CELL ABNOR MALIT Y Not Available [address], [address], 01/25/2022 11:29:21 01/22/20 22 01/25/2022 THINP REP TIS PAP interpretati on/result: abnormal Atypi deann Squam ous Cells of Undet ermin ed Signi fican ce (ASC- US) Not Available [address], [address], 01/25/2022 11:29:21 01/22/20 22 01/25/2022 THINP REP TIS PAP comment: normal This Pap test has been evalu ated with compu ter leonor juanita techn ology . [facility]ge st clini deann corre latio n and follo w-up as clini keshawn appro priat e Not Available [place] [address] [place], [address], 01/25/2022 11:29:21 01/22/20 22 01/25/2022 THINP REP TIS PAP cytotechnolo gist: normal MEF, CT( CP) CT scree sabino locat ion: [place] [address] [place] [address] Not Available [address] [address] [place], [address], 01/25/2022 11:29:21 01/22/20 22 01/25/2022 THINP REP TIS PAP pathologist: normal Cassy quintana M.D., Board Certi fied in Anato adithya Patho logy and Cytop athol ogy. Phone : [phone] (elec troni c signa ture) Not Available [address] [address] [address], [place], [address], 01/25/2022 11:29:21 01/22/20 22 01/25/2022 THINP REP [...] clini deann infor matio n. Not Available [address] [address] [place], [address], 01/25/2022 11:29:21 01/22/20 22 01/29/2022 HPV HIGH [...] l cervi deann cytol ogy. Not Available [place] [facility] Guadalupe [address] [place], [address], 01/29/2022 14:46:40 02/13/20 22 02/11/2022 US, trans vagin al No observ ation record ed. [email or web address] [address], [place], [address], 02/17/2022 17:16:41 Result Notes None recorded. Problems Name Problem SNOMED Code Status Onset Date Resolution Date Notes Provider Name and Address Organization Details Recorded Time Pain in pelvis 84749914 Active 2021 AMANDA Ty Count includes the [facility] [place], [address], [employer] 17:02:35 Abnormal uterine bleeding 73866065134435 Active 2021 AMANDA Ty [address] [place], [address], [employer] [facility] 17:03:34 Flank pain 751440007 Active 2021 AMANDA Ty [address] [place], [address], [employer] [facility] 16:37:50 Problem Notes None recorded. Procedures Surgical History Date Name Laterality Status Provider Name and Address Organization Details Recorded Time 01/21/2022 Date of Last Pap Smear completed AMANDA Ty [address] [place], [address], [employer] [facility] 02/17/2022 11:32:11 Imaging Results Imaging Date Name Status LastModified by Organization Details LastModified Time 02/11/2022 US, transvaginal completed [email or web address] [address], [place], [address], 02/17/2022 17:16:41 Procedure Notes None recorded. Medical Equipment None Reported. Allergies Allergen ID Allergen Name Allergen Category Reaction Reaction Severity Criticality Documentation Date Start Date Code Code System Note Provider Name and Address Organization Details Recorded Time 824822 latex environme nt,medica tion Not available Not available Not available 01/21/2022 86348 91 RxNorm Not Available Not Available Not Available 490389 Product containin g penicilli n (product) medicatio n Not available Not available Not available 01/21/2022 35806 8001 SNOMED Not Available Not Available Not Available 437444 amoxicill in medicatio n Not available Not available Not available 01/21/2022 723 RxNorm Not Available Not Available Not Available 723105 mold extract environme nt Not available Not available Not available 01/21/2022 87854 8 RxNorm Not Available Not Available Not [...] t Available Vitals Date Recorded Body weight Body temperature Body mass index (BMI) Body height Systolic blood pressure Diastolic blood pressure Provider Name and Address Organization Details Last Updated DateTime 2 525802. 24 g 98 [degF] 45.5 kg/m2 160.02 cm 128 mm[Hg] 82 mm[Hg] [facility] [employer] 2 15:52:01 Date Recorded Body height Body mass index (BMI) Body weight Body temperature Systolic blood pressure Diastolic blood pressure Provider Name and Address Organization Details Last Updated DateTime 2 160.02 cm 46.2 kg/m2 558908. 61 g 97.6 [degF] 126 mm[Hg] 76 mm[Hg] [facility] [employer] 2 15:59:01 Social History Question Answer Notes LastModified by Organizat ion Details LastModified Time Tobacco Smoking Status Never Smoker [facility] [employer] 01/21/2022 15:45:36 What Is Your Level Of [...] SNOMED-CT Code Diagnosis ICD10 Code Diagnosis Note [id number] AMANDA Ty [facility] [address] [place] [address] 01/21/2022 15:33:03 01/22/2022 09:24:22 Gynecologic examination 03669349 Z01.419 WWE completedP ap - obtainedST I screening - declinesCB E nmlTobacco , alcohol, drug use- denies; encouraged to avoidDepre ssion screen- negativeBi rth control- declines control. Screening for malignant neoplasm of cervix 774803488 Z12.4 Cervical cancer screening is used to find abnormal changes in the cells of the cervix that could lead to cancer. Screening includes the Pap test and, for some women, testing for a virus called human papillomav irus (HPV). The main cause of cervical cancer is infection with HPV. Depression screening 171 639517 Z13.31 Pain in pelvis 76745217 R10.2 Patient case to submit PA for US- schedule appt Abnormal u terine bleeding 3568349656 9100 N93.9 Discussed tx options for irregular bleeding. Declines control. Explained Lysteda. Will try NSAIDs OTC (Motrin) for now. [id number] AMANDA Ty [facility] [address] [place] [address] 02/11/2022 14:55:40 02/11/2022 16:49:54 Abnormal uterine bleeding 2177644192 9100 N93.9 US shows neo. enlarged ovaries [...] as needed.RTC in 10 weeks Flank pain 793233283 R10 .9 Health Concerns Section Related Observation LastModified by Organization Detai ls LastModified Time None Recorded Concern Status LastModified by Organization Details LastModified Time None Recorded Advance Directives Directive None Recorded Payers Encounter Date Sequence Insurance Name Policy Number Policy Hdez Covered Member ID Hdez Member ID Guarantor Name 01/21/2022 1 [place] Bonnie Davila [id number] Bonnie Davila 02/11/2022 1 [place] Bonnie Davila [id number] Bonnie Davila Notes Date Note Type Note [...] for c/o pelvic and nml. AMANDA Ty [address] [facility], [place], [address], [facility] 01/27/2022 12:19:14 02/11/2022 text/html Pelvic PainReported bypatient.Location [...] states it has improved slightly. AMANDA Ty [address] [place], [address], [facility] [employer] 02/17/2022 11:48:31 OBGyn Episode No OBEpisode recorded.
--- OUTSIDE RECORDS SUMMARY | 2024-07-24 11:30 | XMS_ITS | Data Portability ---
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 I agree with the exam findings, assessment and plan except where specifically documented or amended. -Susan Degroot, [facility], ROBIN [email or web address] Not available 11/18/2023 10:51:29 Plan of Treatment Reminders Order Date Submit Date Provider Last Modified By Organization Details Last Modified Time Details Appointments None recorded. Lab vitamin B12 + folate, serum or blood 2023 024 [email or web address] [facility], [address] [place] [address], [facility] [address], [place], [address], 4 08:02:22 vitamin D, 25-hydroxy, total, serum 2023 024 [email or web address] [facility], [address] [place] [address], [address], [place], [address], 4 08:02:22 Referral None recorded. Procedures None recorded. Surgeries None recorded. Imaging US, abdomen, complete - LEFT UPPER QUADRANT 2022 023 [facility] ([facility]), [address] [place], [address], 3 10:51:01 Medication Orders fluticasone propionate 50 mcg/actuati on nasal spray,suspe nsion 2023 025 [facility] #74929, [address], [place], [place], [id number], 5 12:08:14 montelukast 10 mg tablet 2023 024 [facility] #52349, [address], [place], [place], [id number], 4 17:13:23 azithromyci n 250 mg tablet 2023 025 [facility] #96140, [address], [place], [place], [id number], 5 12:08:41 cyanocobala min (vit B-12) 1,000 mcg tablet 2023 024 [facility] #05513, [address], [place], [place], [id number], 4 10:36:35 Dulera 200 mcg-5 mcg/actuati on HFA aerosol inhaler 2023 024 [facility], [address], [place], [place], [id number], 4 17:11:45 albuterol sulfate HFA 90 mcg/actuati on aerosol inhaler 2023 024 [facility] #08611, [address], [place], [place], [id number], 4 10:36:36 cholecalcif radhika (vitamin D3) 1,250 mcg (50,000 unit) capsule 2023 024 [facility] #80696, [address], [place], [place], [id number], 4 10:36:38 famotidine 20 mg tablet 2023 024 [facility] #84719, [address], [place], [place], [id number], 4 10:36:40 famotidine 20 mg tablet 2022 023 [facility] #82450, [address], [place], [place], [id number], 3 11:13:49 cyanocobala min (vit B-12) 1,000 mcg tablet 2022 023 [facility] #29837, [address], [place], [place], [id number], 3 11:08:51 montelukast 10 mg tablet 2022 023 [facility] #44949, [address], [place], [place], [id number], 3 11:06:47 albuterol sulfate HFA 90 mcg/actuati on aerosol inhaler 2022 023 [facility] #84959, [address], [place], [place], [id number], 3 11:08:23 Dulera 200 mcg-5 mcg/actuati on HFA aerosol inhaler 2022 023 [facility] #76815, [address], [place], [place], [id number], 3 11:08:23 cholecalcif radhika (vitamin D3) 1,250 mcg (50,000 unit) capsule 2022 023 [facility] #58389, [address], [place], [place], [id number], 11:08:50 Patient TargetsNo targets recorded. Patient Instructions Encounter Date Encounter Id Patient Instructions Last Modified By Organization Details Last Modified Time 11/18/2023 [id number] A healthy lifestyle: care instructions [email or web address] Not available 11/18/2023 17:13:18 Reason for Referral None Reported. Results Created Date Observation Date Name Description Value Unit Range Abnormal Flag Note LastModifiedBy Organization Detail LastModifiedTime 12/08/1912/09/2023 VITAM IN B12 AND FOLAT E vitamin B12 506 pg/mL 232-12 45 Not Available [facility] ([facility]) [address] [facility], [place], [address], 12/09/2023 08:32:15 12/08/19 24 12/09/2023 VITAM IN B12 AND FOLAT E folate (folic acid), serum 5.6 NG/mL >3.0 A serum folat e maribel ntrat ion of less than 3.1 ng/mL is consi dered to repre sent clini deann defic iency . Not Available [facility] ([facility]) [address] [facility], [place], [address], 12/09/2023 08:32:15 12/08/19 24 12/09/2023 VITAM IN [...] Medic ine). 2010. Dieta ry refer ence gelacio es for calci um and D. Fany osei [place]: [facility] . 2. Gillian campuzano MF, Binkl ey [place], Bisch off-F errar i LUNA, et al. Evalu ation , treat ment, and preve ntion of vitam in D defic iency : an Endoc rine Socie ty clini deann pract ice guide line. JCEM. 2010; 96(7) :1911 -30. Not Available [facility] ([facility]) [address] [facility], [place], [address], 12/09/2023 08:32:15 01/04/20 23 01/03/2023 US, abdom en, compl ete No observ ation record ed. [address] [place], [address], 01/07/2023 15:18:09 12/11/19 24 12/10/2023 XR, chest , 2 view No observ ation record ed. [address], [place], [address], 12/14/2023 22:25:40 12/23/19 24 12/23/2023 XR, chest , 2 view No observ ation record ed. [address], [place], [address], 12/23/2023 10:56:57 Result Notes None recorded. Problems Name Problem SNOMED Code Status Onset Date Resolution Date Notes Provider Name and Address Organization Details Recorded Time Right sided abdominal pain 845813985 Active 2017 Not Available [facility] 3 09:37:53 Vitamin D deficiency 34439668 Active 2022 Not Available [facility] 3 09:37:53 Vitamin B12 deficiency (non anemic) 30737903 Active 2022 Not Available [facility] 3 09:37:53 Asthma 144851001 Active 2023 FLORENCIO HENRIQUEZ Attn: Accounting ,[address] [facility], [place], [address] , [place] [facility] 10:35:59 Problem Notes None recorded. Procedures Surgical History None recorded. Imaging Results Imaging Date Name Status LastModified by Organiz ation Details LastModified Time 01/03/2023 US, abdomen, complete completed [address] [place], [address], 01/07/2023 15:18:09 12/10/2023 XR, chest, 2 view completed [address], [address], 12/14/2023 22:25:40 12/23/2023 XR, chest, 2 view [address], [address], 12/23/2023 10:56:57 Procedure Notes None recorded. Medical Equipment None Reported. Allergies Allergen ID Allergen Name Allergen Category Reaction Reaction Severity Criticality Documentation Date Start Date Code Code System Note Provider Name and Address Organization Details Recorded Time 832490 amoxicill in medicatio n Not available Not available Not available 11/27/2021 723 RxNorm Not Available Not Available Not Available 559996 ondansetr on medicatio n headache severe high 12/05/2021 52872 RxNorm Not Available Not Available Not Available [...] completed Not Available Not Available Not Available cetirizin e 10 mg tablet TAKE 1 TABLET BY MOUTH DAILY 06/17 completed Not Available Not Available Not Available azithromy lindsay 250 mg tablet TAKE 2 TABLETS (500 MG) BY ORAL ROUTE ONCE DAILY FOR 1 DAY THEN 1 TABLET (250 MG) BY ORAL ROUTE ONCE DAILY FOR 4 DAYS 06/17 completed Not Available Not Available Not Available ibuprofen 800 mg tablet TAKE 1 TABLET BY MOUTH THREE TIMES DAILY FOR 7 DAYS NEEDED FOR PAIN 06/17 completed caused heavy menstrua l cycles Not Available Not Available Not Available benzonata [...] BY MOUTH THREE TIMES DAILY NEEDED FOR PAIN 06/17 completed Not Available Not Available Not Available triamcino lone acetonide 0.1 % topical cream APPLY THIN LAYER TOPICALL Y TO THE AFFECTED AREA TWICE DAILY FOR 7 DAYS 11/17 completed Not Available Not Available Not Available baclofen 20 mg tablet Take 1 tablet 3 times a day by oral route as needed for 30 days. 03/29 completed Not Available Not Available Not Available meloxicam 7.5 mg tablet TAKE 1 TABLET BY MOUTH DAILY 06/17 completed Not Available Not Available Not Available oxycodone -acetamin ophen 5 mg-325 mg tablet TAKE 1 TABLET BY MOUTH EVERY 4 TO 6 HOURS NEEDED 11/25 completed Not Available Not Available Not Available famotidin e 20 mg tablet TAKE 1 TABLET BY MOUTH EVERY DAY IN THE MORNING 2024 active Not Available Not Available Not Avai lable methocarb yakov 750 mg tablet TAKE 2 TABLETS BY MOUTH THREE TIMES DAILY 06/17 completed Not Available Not Available Not Available [...] PUFFS BY MOUTH EVERY 4 HOURS NEEDED 2024 active Not Available Not Available Not Avai lable fluticaso ne propionat e 50 mcg/actua tion nasal spray,ninfa pension USE 1 SPRAY IN EACH NOSTRIL EVERY NIGHT BEFORE BEDTIME. 06/17 completed Not Available Not Available Not Available naproxen 500 mg tablet TAKE 1 [...] Not Available Not Available No t Available Luz 3 mg-0.03 mg tablet TAKE 1 TABLET BY MOUTH DAILY active Not Available Not Available No t Available guaifenes in ER 600 mg tablet, extended release 12 hr TAKE 1 TABLET BY MOUTH EVERY 12 HOURS FOR 7 DAYS DIRECTED 11/25 completed Not Available Not Available Not Available Vitals Date Recorded Body height Body mass index (BMI) Body weight Oxygen saturation Oxygen saturation in Arterial blood by Pulse oximetry Heart rate Respiratory rate Body temperature Systolic blood pressure Diastolic blood pressure Provider Name and Address Organization Details Last Updated DateTime 3 160.66 cm 45.9 kg/m2 634919. 61 g 98 % 98 % 94 /min 18 /min 98.8 [degF] 122 mm[Hg] 74 mm[Hg] Silvia Troncoso CMA [place] [facility] 3 10:52:02 Date Recorded Body height Body mass index (BMI) Body weight Oxygen saturation Oxygen saturation in Arterial blood by Pulse oximetry Heart rate Respiratory rate Body temperature Systolic blood pressure Diastolic blood pressure Provider Name and Address Organization Details Last Updated DateTime 3 160.66 cm 43 kg/m2 525832. 34 g 99 % 99 % 83 /min 17 /min 98.4 [degF] 124 mm[Hg] 76 mm[Hg] Silvia Mayer [place] [facility] 3 14:17:27 Date Recorded Body height Body mass index (BMI) Body weight Oxygen saturation Oxygen saturation in Arterial blood by Pulse oximetry Heart rate Systolic blood pressure Diastolic blood pressure Provider Name and Address Organization Details Last Updated DateTime 4 160.66 cm 49 kg/m2 073344. 83 g 100 % 100 % 88 /min 115 mm[Hg] 72 mm[Hg] Gwendolyn Eldridge MA [place] [facility] 4 10:13:30 Date Recorded Respiratory rate Provider Name a nd Address Organization Details Last Updated DateTime 11/18/2023 18 /min FLORENCIO HENRIQUEZ Attn: Accounting,[address] [facility], [place], [address], [facility] 11/18/2023 17:12:21 Date Recorded Body height Body mass index (BMI) Body weight Oxygen saturation Oxygen saturation in Arterial blood by Pulse oximetry Heart rate Respiratory rate Systolic blood pressure Diastolic blood pressure Provider Name and Address Organization Details Last Updated DateTime 4 160.66 cm 48.3 kg/m2 274938. 9 g 98 % 98 % 72 /min 18 /min 124 mm[Hg] 82 mm[Hg] Brittnee Finley MA [facility] 4 16:52:48 Date Recorded Body height Body mass index (BMI) Body weight Oxygen saturation Oxygen saturation in Arterial blood by Pulse oximetry Heart rate Respiratory rate Systolic blood pressure Diastolic blood pressure Provider Name and Address Organization Details Last Updated DateTime 5 160.66 cm 47.5 kg/m2 939241. 04 g 97 % 97 % 99 /min 18 /min 129 mm[Hg] 85 mm[Hg] Marcella Almazan MA [facility] 5 11:56:30 Social History Question Answer Notes LastModified by Organizat ion Details LastModified Time Tobacco Smoking Status Never Smoker Jaskaran Olivarez MA null, [facility] 03/10/2018 14:33:42 What Is Your Level Of [...] Date Of Your Most Recent Tobacco Screening? 06/17/2024 Information not available 06/17/2024 Do You Have Smoke And Carbon Monoxide Detectors In Your Home? Yes Information not available 07/26/2021 Are You Passively Exposed To Smoke? No [email or web address] Information no t available 05/01/2022 Do You Use Any Illicit Or Recreational Drugs? No [email or web address] Information not available 05/01/2022 Do You Use Sunscreen Routinely? No Information not available 07/26/2021 Has Tobacco Cessation Counseling Been Provided? Yes [email or web address] Information not available 05/01/2022 On What Date Was Tobacco Cessation Counseling Provided? 06/17/2024 Information not available 06/17/2024 Do You Or Have You Ever Used [...] Response Coronary Artery Disease N Other N Atrial Fibrillation N High Blood Pressure N Thyroid Problems N Kidney or Bladder Problems N Depression N COPD N Blood Clots N GI Problems N Skin Problems N Eating Disorder N Anemia N Heart Attack ([place]) N Diabetes N Anxiety Disorder N Muscle, Joint, or Bone Problems N Seizures/Epilepsy N Acid Reflux (GERD) N Cancer N Stroke N Allergies N Asthma N ADHD N Substance Abuse N High Cholesterol N Hepatitis N Liver Disease N Schizophrenia N Headaches N Osteoporosis N Heart Failure N Gynecological History Statement/Question Response Flow Light [...] completed Anant Menjivar MD Attn: Accounting,[address] [place], [address], [facility] 06/28/2019 18:48:06 Past Encounters Encounter ID Performer Location Encounter Start Date Encounter Closed Date Diagnosis/Indication Diagnosis SNOMED-CT Code Diagnosis ICD10 Code Diagnosis Note [id number] MD Kylie Cooper (Adult Med) [address] [place] [address] 0 03/10/2018 14:01:41 03/10/2018 15:16:05 Chronic abdominal pain 260335483 R10.9 [id number] [facility] [address] [place] [address]67[address] 0 04/03/2018 16:01:27 04/06/2018 11:41:43 History of asthma 065740170 Z87.09 Discussed with patient and her older sister today in this office. Right uppe r quadrant pain 245481910 R10.11 Discussed with patient and her older sister in this office. Will have US of Gall bladder on 04-10-2018 . Advised patient to go to ER any time for any concern, they understood and agreed. [id number] MD Kylie Cooper (Adult Med) [address] [place] [phone] 0 06/28/2019 16:30:39 06/29/2019 11:32:42 History of asthma 996307731 Z87.09 Discussed with patient and her older sister today in this office. Administra tion of influenza vaccine 94497478 Z23 [id number] [facility] [address] [place] [address]309[address]113 0 02/01/2020 08:35:13 02/02/2020 10:57:16 Asthma 750424521 J45.909 History of asthma 009095 007 Z87.09 Discussed with patient and her older sister today in this office. [id number] [facility] [address] [place] [address] 79069-563 0 05/19/2020 14:46:00 05/23/2020 07:51:27 Tinea corporis 18648369 B35.4 Discussed with patient, she agreed to try topical cream as ordered, and will keep this office informed. History of asthma 191707 007 Z87.09 Discussed with patient and her older sister today in this office. [id number] MD Kylie Cooper (Adult Med) [address] [place] [address] 97530-486 0 09/21/2020 09:53:14 09/22/2020 21:37:54 Contact dermatitis caused by urushiol from [employer] sam 135652854 L25.5 Discussed with patient, willing to try med as ordered. Asthma 369900189 J45.90 9 Stable, no wheezing today, will refill med. [id number] [facility] [address] [place] [address]5350[address]791 0 02/06/2021 13:13:32 02/08/2021 13:00:57 Contact dermatitis caused by urushiol from [employer] sam 872076363 L25.5 Discussed with patient, willing to try med as ordered. [id number] MD Kylie Cooper (Adult Med) [address] [place] [phone] 0 06/21/2021 16:16:34 06/25/2021 11:32:23 Blurring of visual image 179189463 H53.8 No palpitatio n, no perspirati on, blurred vision , went to ER and was released, today blood pressure reading is 120./78 mm HG. sitting . left arm. heart regular no murmur. Will refer to ophthalmol ogist, she greed. Right uppe r quadrant pain 179164747 R10.11 Discussed with patient and her older sister in this office. Will have US of Gall bladder on 04-10-2018 . Advised patient to go to ER any time for any concern, they understood and agreed.Tod ay 06-21-2021 , abdomen soft, no rebounding pain, no mass. will check gallbladde r U/S as she asks. Advised to avoid spicy/grea sy food. Morbid obesity 102237024 E66.01 Diet, exercise and lose weight. [id number] [facility] [address] [place] [phone] 0 07/26/2021 12:08:35 07/27/2021 10:58:53 Irregular heart beat 183876477 R00.8 Discussed with patient, she agreed for the out patient holter monitor to start with. Auscultati on of heart at this moment , regular, no murmur. Lungs clear to auscultati on. ne elevated JVP, no edema of legs/feet. No difficulty of breathing. [id number] [facility] [address] [place] [phone] 0 08/24/2021 16:39:17 08/27/2021 08:48:56 Right sided abdominal pain 781382683 R10.9 Asthma 035920873 J45.90 9 Stable, no wheezing today, will refill med. [id number] Anant Menjivar [facility] ([facility]) [address] [place] [phone] 0 11/27/2021 09:39:55 11/28/2021 11:54:07 Calculus of gallbladder with cholecystitis 79980097 K80.10 She went to Er, was treated [...] minimize the gall bladder attack, she agreed. [id number] MD Kylie Cooper (Adult Med) [address] [place] [address]14-657 0 12/05/2021 11:51:30 12/06/2021 10:59:26 Right sided abdominal pain 938795506 R10.9 Gall stone, will have appointmen t tomorrow with general surgeon . Low back pain 386427590 M54.50 M54.51 Discussed with patient, she agreed for the x ray, not , and PT for the mean time. Probabaly local muscular pain no sign of radiculopa thy. Gynecologi c examination 51897485 Z01.419 She wants to be referred to [facility] Hale [address] [place] [id number] MD Kylie Cooper (Adult Med) [address] [place] [address] 71822-109 0 12/17/2021 10:10:55 12/18/2021 08:45:51 Acute laryngitis 0621615 J04.0 Discussed with patient, she greed to try ABS in the mean time. Gallstone 734811683 K80. 20 Will see a surgeon. [id number] MD Kylie Cooper (Adult Med) [address] [place] [address] [phone] 0 01/02/2022 14:34:09 01/04/2022 09:39:33 Chronic neck pain 0855351260 107 M54.2 Discussed with patient, she agreed for x ray, Pt, muscle relaxant and ENT referral. [id number] MD Kylie Cooper (Adult Med) [address] [place] [address] [phone] 0 01/09/2022 16:02:03 01/10/2022 11:03:40 Acute tonsillitis 87278027 J03.90 Discussed with patient, she agreed to try ABS as ordered, and observe the tiny nut on the neck. [id number] MD Kylie Cooper (Adult Med) [address] [place] [address] [phone] 0 01/17/2022 16:41:49 01/18/2022 10:43:20 Generalized aches and pains 94983900 R52 Aching all over. lower abdomen . back and her shoulder. No fever. Discussed with patient, she agreed to try muscle relaxant. Gallstone 549335512 K80. 20 Will see a surgeon. She chicken out she said. [id number] FLORENCIO HENRIQUEZ [facility] [address] [facility] [place] [address] 03/29/2022 11:30:16 04/02/2022 12:01:47 Exposure to Influenzavirus 360459652 Z20.828 x1 daysore throat, myalgias, subjective fever, chills, headaches, ear pressure, cough, congestion , rhinorrhea , decreased appetiteNo sick contactsta nelida tylenol and sinus medication w/o relieftook tylenol at 5 AMdid not receive flu shot this yearfebril e in office, 100.5 FPEx- tachycardi a, normal rhythmmost likely influenzao ut of rapid flu tests in officeadvi sed pt to go [facility] for testingcan give tamiflu if pt [...] or on SSRI antidepres sants. Cervical lymphadenopathy 316269924 R59.0 x3 monthsprev ious PCP took neck XR, told it was normalPEx- mild cervical LAD, mild TTPreassur ed ptmost likely lymph node enlargemen t due to viral illnessoff ered neck US, will defer at this time Morbid obesity 956168134 E66.01 [id number] FLORENCIO HENRIQUEZ [facility] [address] [place] [address] 05/01/2022 15:49:02 05/02/2022 15:56:32 Cervical lymphadenopathy 011185169 R59.0 05/01/22:un changed from previous exampt requesting imaging, will obligeorde red US neck soft tissue 03/29/22:x3 monthsprev ious PCP took neck XR, told it was normalPEx- mild cervical LAD, mild TTPreassur ed ptmost likely lymph node enlargemen t due to viral illnessoff ered neck US, will defer at this time Morbid obesity 933816260 E66.01 Right flank pain 7687996 09 R10.9 x2 wksburning pain to R [...] muscle relaxer Right side d abdominal pain 982892749 R10.9 [id number] FLORENCIO HENRIQUEZ [facility] [address] [place] [address] 06/07/2022 13:56:12 06/07/2022 14:58:15 Fatigue 17069825 R53.83 x3 wksrec'd improve sleep hygiene, go to bed at the same time every night, sleep for 8 hrs and set alarm to wake upepworth sleepiness scale 7, normalchec k vitamins, iron, electrolyt es Cervical lymphadenopathy 153995954 R59.0 06/07/22:di d not completere -print order 05/01/22:un changed from previous exampt requesting imaging, will obligeorde red US neck soft tissue 03/29/22:x3 monthsprev ious PCP took neck XR, told it was normalPEx- mild cervical LAD, mild TTPreassur ed ptmost likely lymph node enlargemen t due to viral illnessoff ered neck US, will defer at this time Morbid obesity 123480500 E66.01 discussed increasing exercise and healthier food options, high protein, low fat diet Daytime hypersomnia 3177 129237 3152 G47.19 will refer to sleep study if labs are normal [id number] FLORENCIO HENRIQUEZ [facility] [address] [place] [address] 06/13/2022 11:34:28 06/13/2022 13:03:10 Sore throat 610191641 J02.9 rapid strep negativere c'd warm salt water garglesalt between tylenol and ibuprofen for pain relieff/u if symptoms do not improve [id number] FLORENCIO HENRIQUEZ [facility] [address] [place] [address] 06/17/2022 11:50:06 06/17/2022 12:50:45 Upper respiratory infection 65848506 J06.9 x3 daysmom with similar sxnot taking [...] if not or on SSRI antidepres sants. [id number] FLORENCIO HENRIQUEZ [facility] [address] [place] [address] 11/25/2022 10:40:30 11/26/2022 10:02:59 Asthma 158043366 J45.909 refill Nasal congestion 0784360 0 R09.81 refill Vitamin B1 2 deficiency (non anemic) 93652535 E53.8 refill Vitamin D deficiency 347 32137 E55.9 has been out for 3 monthswill re-check once she starts taking consistent ly Left upper quadrant pain 683459068 R10.12 x5 monthsshar p, pinching, randoma couple times/wk, can last all daynot a/w foodsno other GI sxnormal BMsPEx- mild epigastric TTPtrial [id number] US abd, LUQ Depression screening 171 371723 Z13.31 PHQ 1 History of cholecystectomy 186230583 Z90.49 06/2022requ ested records [id number] FLORENCIO HENRIQUEZ [facility] [address] [place] [address] 04/18/2023 13:59:54 04/23/2023 10:26:16 Depression screening 381761599 Z13.31 PHQ 0 Popping of right knee joint 8447260901 2687255 M23.8X1 x3 wksoccurre d with walking down stairsno trauma, injury or painworse with bending, sitting, walking down stairsdesc ribes as annoying PEx- mild crepitus with flexion of R knee joint, no edema or TTPreassur ed ptmost likely cartilage, tendon/lig ament catching with certain movementsr ec'd PT, pt declinedno interventi ons at this time [id number] FLORENCIO HENRIQUEZ [facility] [address] [place] [address] 11/18/2023 10:05:10 11/18/2023 10:36:53 Vitamin D deficiency 80103752 E55.9 11/18/23:re check todaylast level 05/2022: 9.5 has been out for 3 monthswill re-check once she starts taking consistent ly Asthma 222118857 J45.90 9 well controlled refill meds Gastroesop hageal reflux disease without esophagitis 732400455 K21.9 11/18/23:im provement with famotidine , sent refills x5 monthsshar p, pinching, randoma couple times/wk, can last all daynot a/w foodsno other GI sxnormal BMsPEx- mild epigastric TTPtrial [id number] US abd, LUQ Vitamin B1 2 deficiency (non anemic) 14019193 E53.8 refill and re-check levels Low back strain [id number] 1 S39.012A went to ED 11/06/23 for lower back painhas been picking up 80lb dogtaking flexeril and lidocaine patchesdec lines PT at this timef/u if no improvemen t Depression screening 171 Z13.31 PHQ 0 Morbid obesity [id number] E66.01 discussed increasing exercise and healthier food options, high protein, low fat diet [id number] FLORENCIO HENRIQUEZ [facility] [address] [place] [address] 01/06/2024 16:48:55 01/06/2024 17:20:14 Nasal congestion [id number] R09.81 trial flonase for productive coughc/w singulair Productive cough [id number] 5 R05.9 x6 wkswent to ED 3 wks ago for bronchitis , given doxycyclin e, tessalon perles, and prednisone still c/o productive cough with white mucus for 4 wksc/o feeling mucus stuck in throat, no relief with mucinex, cough suppressan ts or antihistam inesno SOB, wheezing, or feversPEx- nltrial Z karthik for 4 days [id number] FLORENCIO HENRIQUEZ [facility] [address] [place] [address] 06/17/2024 11:51:34 06/17/2024 12:13:00 Fit to return to work [id number] Z78.9 strained lower back 3 wks agowent to workman's compreques ting to RTW w/o restrictio nsprovided work note Depression screening 171 Z13.31 PHQ 0 Health Concerns Section Related Observation LastModified by Organization Detai ls LastModified Time None Recorded Concern Status LastModified by Organization Details LastModified Time None Recorded Advance Directives Directive None Recorded Payers Encounter Date Sequence Insurance Name Policy Number Policy Hdez Covered Member ID Hdez Member ID Guarantor Name 11/25/2022 1 [facility] (MEDICAID REPLACEMENT - HMO) [id number] Bonnie Davila [id number] Bonnie Davila 04/18/2023 1 [facility] (MEDICAID REPLACEMENT - HMO) [id number] Bonnie Davila [id number] Bonnie Davila 11/18/2023 1 [facility] (MEDICAID HMO) [id number] Bonnie Davila [id number] Bonnie Davila 01/06/2024 1 [facility] (MEDICAID HMO) [id number] Bonnie Davila [id number] Bonnie Davila 06/17/2024 1 [facility] (MEDICAID HMO) [id number] Bonnie Davila [id number] Bonnie Davila Notes Date Note Type Note Provider Name and Address Organization Details Recorded Time 11/25/2022 text/html Pt presents for nasal congestion, [...] it worse. FLORENCIO HENRIQUEZ Attn: Accounting,[address], [place], [address], [facility] 11/25/2022 13:59:16 04/18/2023 text/html Pt presents with [...] with ambulation. FLORENCIO HENRIQUEZ Attn: Accounting,[address] [place], [address], [facility] 04/22/2023 17:37:15 11/18/2023 text/html Patient presents today for med refills. She went to the for ER for low back pain 2 weeks ago. It started as stiffness and continued to get worse. 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 She said that it feels muscular in nature. No trauma or injury to the area. Patient is using good body mechanics when picking up the dog. She is currently taking flexeril and using lidocaine patches w/ some improvement. FLORENCIO HENRIQUEZ Attn: Accounting,[address], [place], [address], [facility] 11/18/2023 17:13:41 01/06/2024 text/html Pt presents with [...] congestion, rhinorrhea, sinus pressure or headaches. FLORENCIO HENRIQUEZ Attn: Accounting,[address], [place], [address], [facility] 01/06/2024 17:36:38 06/17/2024 text/html Pt presents for work release. States that three wks ago, she pushed self check out machine at [facility] and threw out my back. Pt went to Workman's Comp and was told she can't do anything. Reports that her symptoms have resolved and is requesting to return to work without restrictions. FLORENCIO HENRIQUEZ Attn: Accounting,[address], [place], [address], [facility] 06/17/2024 16:11:11 OBGyn Episode No OBEpisode recorded.
--- OUTSIDE RECORDS SUMMARY | 2024-07-24 11:30 | XMS_ITS | CONTINUITY OF CARE DOCUMENT ---
Author Name margaret, parvinkelsea Address Unknown Organization [facility] Address [address] [place] [address] Phone [phone] Care Team Providers Care Gluing Machine Operator Electronic Name Role Phone Jayden NORTH, [place] Unavailable JIN ARCHER MD Unavailable [phone] JIN ARCHER MD Unavailable [phone] INSURANCE PROVIDERS Payer name Policy type / Coverage type [place] red libertarian ID [facility] [id number]
[2024-07-24 11:50] VITALS: O2SAT 98
[2024-07-24 11:51] VITALS: BP 120/70; PULSE 88; RESP 18; O2SAT 98
--- OUTSIDE RECORDS SUMMARY | 2024-07-24 11:52 | XMS_ITS | CONTINUITY OF CARE DOCUMENT ---
Author Name margaret, parvinkelsea Address Unknown Organization [facility] Address [address] [place] [address] Phone [phone] Care Team Providers Care Scientific Recruiter Name Role Phone Jayden NORTH, [place] Unavailable JIN ARCHER MD Unavailable [phone] JIN ARCHER MD Unavailable [phone] INSURANCE PROVIDERS Payer name Policy type / Coverage type [place] red constitution party ID [facility] [id number]
[2024-07-24 12:30] LABS: Influenza A QL RT-PCR Negative (Negative); Influenza B QL RT-PCR Negative (Negative); RSV RNA, RT-PCR Negative (Negative); SARS-CoV-2 RNA PCR Negative (Negative)
--- NOTE | 2024-07-24 12:39 | ED.URI ---
HPI - URI/Sore Throat General Chief Complaint: Upper Respiratory Infection Stated Complaint: cough Time Seen by Provider: 07/24/24 11:36 Source: patient Mode of arrival: ambulatory Limitations: no limitations History of Present Illness HPI Narrative: 28 years old white female came to the ED by private car complaining of nasal congestion, intermittent coughing for the last 3 days. She denies any fever or chills or nausea or vomiting or sick contact. History of asthma and seasonal allergy. Related Data Home Medications ?Medication ?Instructions ?Recorded ?Confirmed ?Last Taken ?Type albuterol sulfate 90 mcg/actuation inhalation 12/21/20 Unknown History aerosol inhaler mometasone-formoterol HFA 200 inhalation 12/21/20 Unknown History mcg-5 mcg/actuation aerosol inhaler (Dulera) montelukast 10 mg tablet mg PO 04/01/24 04/01/24 Unknown History Allergies Allergy/AdvReac Type Severity Reaction Status Date / Time amoxicillin Allergy Rash Verified 07/24/24 11:28 morphine AdvReac Intermediate Difficulty Verified 07/24/24 11:28 Breathing Penicillins AdvReac Mild coughing Verified 07/24/24 11:28 Review of Systems Review of Systems: All systems reviewed & are unremarkable except as noted in HPI and below PMFSH Past Medical History Medical History Asthma Surgical History Surgical History History of cholecystectomy Family History Family History Sibling Asthma Mother Diabetes mellitus Hypertension Grandparent Diabetes mellitus Hypertension Social History Social History Smoking status: Never smoker Exam Narrative: General appearance: Well-developed, well-nourished Skin: Normal color Head: Normocephalic, nontraumatic Eyes: Clear conjunctiva ENT: Oropharynx normal, ears normal, nose normal Neck: Supple, nontender Chest and respiratory: Airway patent, no respiratory distress, no accessory muscle use Heart: Regular rate/rhythm Abdomen: Soft, nontender, no organomegaly, quiet bowel sounds Vascular: Normal peripheral pulses, normal capillary refill. Musculoskeletal: Normal range of motion, nontender back Neurologic: Alert and oriented ?3, ISOTOPE HYDROLOGIST is normal as tested, no gross motor deficit Course Vital Signs Vital signs: Vital Signs Temperature 36.7 C 07/24/24 11:30 Pulse Rate 67 07/24/24 11:30 Respiratory Rate 16 07/24/24 11:30 Blood Pressure 114/69 07/24/24 11:30 Pulse Oximetry 100 07/24/24 11:30 Oxygen Delivery Room Air 07/24/24 11:30 Temperature 36.7 C 07/24/24 11:30 Pulse Rate 88 07/24/24 11:51 Respiratory Rate 18 07/24/24 11:51 Blood Pressure 120/70 07/24/24 11:51 Pulse Oximetry 98 07/24/24 11:51 Oxygen Delivery Room Air 07/24/24 11:50 MDM - URI/Sore Throat MDM Narrative Medical decision making narrative: Differential diagnosis include upper respiratory viral infection versus seasonal allergy. Patient tested negative for RSV, flu and COVID. Discharged on Flonase and Zyrtec Differential Diagnosis Differential diagnosis: Likely other (As above) Lab Data Attestation: I reviewed the patient's lab results. Labs: Lab Results 07/24/24 Range/Units 11:48 Influenza A (RT-PCR) Negative (Negative) Influenza B (RT-PCR) Negative (Negative) RSV (RT-PCR) Negative (Negative) SARS-CoV-2 RNA (RT-PCR) Negative (Negative) Critical Care Time Critical Care Time Critical Care Time: No Discharge Plan Discharge Clinical Impression: Upper respiratory infection Patient Disposition: Home, Self-Care Condition: Stable Instructions: Upper Respiratory Infection (DC) Additional Instructions: Return if symptoms are worsening , call your family physician for appointment, take Tylenol, ibuprofen as as needed for aches and pain, continue home medications. Patient Language: Luxembourgish Prescriptions: New fluticasone propionate [Flonase Allergy Relief] 50 mcg/actuation spray,suspension 2 spray intranasal DAILY Qty: 16 0RF Rx Instructions: administer into each nostril Zyrtec 10 mg capsule 10 mg PO BID PRN (Reason: allergy symptoms) Qty: 20 0RF No Action montelukast 10 mg tablet PO drospirenone-ethinyl estradiol 3-0.03 mg tablet 1 tablet PO DAILY Qty: 84 1RF albuterol sulfate 90 mcg/actuation HFA aerosol inhaler INHALATION Dulera 200-5 mcg/actuation HFA aerosol inhaler INHALATION ibuprofen 800 mg tablet 800 mg PO TID PRN (Reason: pain) 7 Days Qty: 21 0RF acetaminophen 500 mg tablet 1,000 mg PO TID PRN (Reason: kimberly) 7 Days Qty: 42 0RF methocarbamol 750 mg tablet 1,500 mg PO TID Qty: 35 0RF Follow-up/Referrals: Irlanda,FLORENCIO Davis [Primary Care Provider] -
== END 2024-07-24 12:57 | disposition home or self-care (01) ==
PROVIDERS: Emergency Provider Emergency Medicine; PCP Physician Assistant
DX: J06.9 Acute upper respiratory infection, unspecified (principal); Z20.822 Contact with and (suspected) exposure to COVID-19
CPT/HCPCS: 87637; 99283

== ENCOUNTER 2024-10-24 02:20 | Emergency (ER) | payer OTHER, SELFPAY ==
--- NOTE | ~2024-10-24 | XR_ITS ---
HISTORY: fall down hit tailbone, left hip pain COMPARISON: None TECHNIQUE: 2 views of the left hip along with an AP view of the pelvis FINDINGS: No acute displaced fracture or dislocation is identified. Trace superior lateral sclerosis of the bilateral femoral acetabular joint spaces are present consist ent with osteoarthritis. Fecal stasis within the colon. Age-appropriate mineralization. IMPRESSION: Mild degenerative disease, without acute fracture. If clinical suspicion persists, cross-sectional imaging (noncontrast enhanced CT examination of the p venu) is suggested for further evaluation. Reviewed, dictated and finalized at location A. IMPRESSION: Mild degenerative disease, without acute fracture. If clinical suspicion persists, cross-sectional imaging (noncontrast enhanced C T examination of the pelvis) is suggested for further evaluation.
[2024-10-24 02:24] VITALS: BP 101/47; PULSE 100; RESP 16; TEMP 36.7; O2SAT 96
[2024-10-24 03:42] VITALS: BP 120/64; PULSE 85; RESP 16; O2SAT 100
--- NOTE | 2024-10-24 04:53 | ED_ITS ---
HPI - Fall General Chief Complaint: Fall Stated Complaint: fall down 10 stairs Time Seen by Provider: 10/24/24 04:10 History of Present Illness HPI Narrative: 29-year-old otherwise healthy female presenting to the emergency department for evaluation of some tailbone left hip pain after tripping and falling down stairs. She states that she rolled her ankle accidentally and fell back onto her tailbone and hit several stairs landing onto her left side. Did not hit her head or lose consciousness. Was able to get up and ambulate right away. He is having difficulty lying down given the pain in her tailbone region and left- sided hip. No numbness or paresthesias, no weakness in the limb, no sensory deficits. No incontinence issues. No loss of consciousness or blood thinner use. No previous surgical procedures. Did not take anything for pain prior to arrival. Previously healthy. Related Data Home Medications ?Medication ?Instructions ?Recorded ?Confirmed ?Last Taken ?Type albuterol sulfate 90 mcg/actuation inhalation 12/21/20 Unknown History aerosol inhaler mometasone-formoterol HFA 200 inhalation 12/21/20 Unknown History mcg-5 mcg/actuation aerosol inhaler (Dulera) montelukast 10 mg tablet mg PO 04/01/24 04/01/24 Unknown History Allergies Allergy/AdvReac Type Severity Reaction Status Date / Time amoxicillin Allergy Rash Verified 10/24/24 02:27 morphine AdvReac Intermediate Difficulty Verified 10/24/24 02:27 Breathing Penicillins AdvReac Mild coughing Verified 10/24/24 02:27 Review of Systems Review of Systems: As reviewed above in HPI [facility] Past Medical History Medical History Asthma Surgical History Surgical History History of cholecystectomy Family History Family History Sibling Asthma Mother Diabetes mellitus Hypertension Grandparent Diabetes mellitus Hypertension Social History Social History Smoking status: Never smoker Exam Narrative: GENERAL: [Well-appearing, well-nourished, and in no acute distress.] HEAD: [Normocephalic, atraumatic.] EYES: [PERRLA and EOMI.] ENT: Nares clear, no rhinorrhea or epistaxis. Mucous membranes moist. NECK: Supple. CHEST: [Clear to auscultation. No respiratory distress.] HEART: [Regular rate and rhythm]. No murmur heard. [Normal peripheral pulses.] ABDOMEN: [Soft, nondistended], [nontender], [No rigidity or guarding] EXTREMITIES: Focal reproducible pain over the left lateral pelvis, posterior acetabular region. Extensive of the left leg backwards elicits pain but no restricted range of motion. Flexion at the hip, knee and ankles bilaterally are symmetric. Able to ambulate unassisted without any ataxia. No midline back tenderness in the thoracic lumbar or cervical region. No sacral tenderness to examination. Normal EHL and FHL 5/5 strength SKIN: Warm, dry, no rash. No visible bruising or trauma NEURO: [No focal deficits]. Alert and oriented [x3.] PSYCH: [Normal mood and affect.] Course Vital Signs Vital signs: Vital Signs Temperature 36.7 C 10/24/24 02:24 Pulse Rate 100 10/24/24 02:24 Respiratory Rate 16 10/24/24 02:24 Blood Pressure 101/47 L 10/24/24 02:24 Pulse Oximetry 96 10/24/24 02:24 Oxygen Delivery Room Air 10/24/24 02:24 Temperature 36.7 C 10/24/24 02:24 Pulse Rate 85 10/24/24 03:42 Respiratory Rate 16 10/24/24 03:42 Blood Pressure 120/64 10/24/24 03:42 Pulse Oximetry 100 10/24/24 03:42 Oxygen Delivery Room Air 10/24/24 02:24 MDM - Fall MDM Narrative Medical decision making narrative: 29-year-old otherwise healthy female presenting to the emergency department for evaluation of some tailbone left hip pain after tripping and falling down stairs. She states that she rolled her ankle accidentally and fell back onto her tailbone and hit several stairs landing onto her left side. Did not hit her head or lose consciousness. Was able to get up and ambulate right away. He is having difficulty lying down given the pain in her tailbone region and left- sided hip. No numbness or paresthesias, no weakness in the limb, no sensory deficits. No incontinence issues. No loss of consciousness or blood thinner use. No previous surgical procedures. Did not take anything for pain prior to arrival. Previously healthy. Examination shows reproducible pain over the left lateral hip on the posterior aspect without any overlying skin changes. No midline spinal tenderness. She does have pain elicited with extension of the left hip but no flexion pain. Full strength and sensation distally at the knee and ankle. Ambulates with a steady gait. No midline tailbone pain identified on exam. Patient's hemodynamics are stable with normal vital signs. X-rays with multiple views of the hip and pelvis were obtained for and potential fractures but given her well appearance and normal exam suspicion more likely for bone bruising or muscular contusions. She was given multimodal pain regimen with lidocaine patch, Toradol injection, Tylenol and Robaxin. Patient's x-rays were independently reviewed and also interpreted by radiology with no acute osseous findings. Patient's pain is improved after analgesics and she will be discharged home with a combination medications for symptom control and given return precautions. Medical Records Attestation: I reviewed the patient's medical records. Imaging Data Attestation: I personally reviewed and interpreted this imaging study as follows: My impression: No acute osseous abnormalities Discharge Plan Discharge Clinical Impression: Fall down stairs, Hip pain, left, Contusion of left hip region Patient Disposition: Home Condition: Stable Instructions: Antibiotic Form, Muscle Strain (ED), Contusion in Adults (ED) Additional Instructions: Your x-rays do not show any broken bones or dislocations. Your symptoms are more consistent with musculoskeletal bruising and strain and possibly bony bruising from the injury. We will send you home with strong anti-inflammatories and pain control medications to help with the symptoms. Return with any intractable pain, new symptoms or any other concerns. Follow-up with your regular doctors otherwise. Patient Language: Japanese Prescriptions: New acetaminophen [Tylenol Extra Strength] 500 mg tablet 1,000 mg PO TID PRN (Reason: pain) Qty: 30 0RF ketorolac 10 mg tablet 10 mg PO Q8H PRN (Reason: pain) 5 Days Qty: 20 0RF Rx Instructions: maximum total duration of 5 days from all oral, intranasal, or parenteral formulations methocarbamol 750 mg tablet 750 mg PO TID PRN (Reason: pain) Qty: 20 0RF lidocaine 5 % adhesive patch,medicated 1 patch topical DAILY Qty: 15 0RF Rx Instructions: leave on most painful area for up to 12 hrs No Action montelukast 10 mg tablet PO albuterol sulfate 90 mcg/actuation HFA aerosol inhaler INHALATION Dulera 200-5 mcg/actuation HFA aerosol inhaler INHALATION ibuprofen 800 mg tablet 800 mg PO TID PRN (Reason: pain) 7 Days Qty: 21 0RF acetaminophen 500 mg tablet 1,000 mg PO TID PRN (Reason: kimberly) 7 Days Qty: 42 0RF methocarbamol 750 mg tablet 1,500 mg PO TID Qty: 35 0RF fluticasone propionate [Flonase Allergy Relief] 50 mcg/actuation spray,suspension 2 spray intranasal DAILY Qty: 16 0RF Rx Instructions: administer into each nostril Zyrtec 10 mg capsule 10 mg PO BID PRN (Reason: allergy symptoms) Qty: 20 0RF drospirenone-ethinyl estradiol 3-0.03 mg tablet 1 tablet PO DAILY Qty: 84 1RF Follow-up/Referrals: Irlanda,FLORENCIO Davis [Primary Care Provider] - Time of Disposition: 05:38
[2024-10-24] MEDS: KETOROLAC 30 MG/ML VIAL (*BKC) IM (04:55)
[2024-10-24] MEDS: LIDOCAINE 5% PATCH 1 PATCH TRANSDERM (04:55)
[2024-10-24] MEDS: ACETAMINOPHEN 500 MG TABLET 1000 MG PO (04:56)
== END 2024-10-24 05:45 | disposition home or self-care (01) ==
PROVIDERS: Emergency Provider Student in an Organized Health Care Education/Training Program; PCP Physician Assistant
DX: S70.02XA Contusion of left hip, initial encounter (principal); W10.9XXA Fall (on) (from) unspecified stairs and steps, initial encounter; J45.909 Unspecified asthma, uncomplicated
CPT/HCPCS: 73502; 96372; 99283; A9270; J1885